=== PATIENT | female | born 1955 | race Caucasian/White ===

== ENCOUNTER 2020-08-08 16:15 | Inpatient (IN) | payer MEDICAID, SELFPAY ==
--- NOTE | ~2020-08-08 | CT_ITS ---
EXAMINATION: CT CHEST WITHOUT CONTRAST CLINICAL INFORMATION: Acute shortness of breath . COMPARISON: Chest x-ray from this evening, visualized lung bases on the 09/11/2016 CT scan the abdomen and visualized basilar chest on the oldest available 01/04/2012 CT scan. TECHNIQUE: Multidetector volumetric imaging was performed from the thoracic inlet through the lung bases without contrast. Sagittal and coronal reformatted images were obtained on the technologist workstation. Soft tissue and lung algorithms evaluated. Thick slab MIP images were performed to increase nodule conspicuity. This CT examination was performed using dose optimization techniques as appropriate, variously including the following: *Automated exposure control *Adjustment of mA and/or kV according to patient size (this includes techniques or standardized protocols for targeted exams where dose is matched to indication/reason for exam; i.e. extremities or head) *Use of iterative reconstruction technique DLP: 307 mGy-cm. FINDINGS: LUNG: Although there are chronic appearing reticular markings seen, these appear to have progressed from the prior studies. Acute infectious etiology superimposed on chronic reticular markings and areas of scarring would be favored with this distribution. Clinical correlation would be recommended. I do not appreciate any significant nodularity or discrete mass lesion. Central airways are unremarkable. MEDIASTINUM: Vascular calcification within the aorta and coronary vessels. Heart is enlarged but difficult to define further on this noncontrast study. PERICARDIUM/PLEURA: No significant effusion. No pleural mass or thickening. THYROID/VISUALIZED LOWER NECK: Low-attenuation nodularity seen bilaterally measuring up to 2.5 cm on the right and 1.3 cm on the left. CHEST WALL/AXILLA: Unremarkable. VISUALIZED UPPER ABDOMEN: Partially visualized left renal cyst. Nonobstructed right renal calculi. CT/CT chest wo con IMPRESSION: Although there are extensive chronic appearing changes in the lung parenchyma, this has worsened in the interval from the prior studies. Acute on chronic changes are present. Acute infectious etiology superimposed on chronic regions of bilateral scarring would be suspected. This is not the typical pattern for acute edema on chronic changes. Clinical correlation will be needed.
--- NOTE | ~2020-08-08 | XR_ITS ---
EXAMINATION: XR CHEST CLINICAL INFORMATION: Fever. COMPARISON: Chest x-ray 08/08/[address] chest 08/08/2020 TECHNIQUE: Frontal view of the chest was obtained. FINDINGS: The lungs are hypoexpanded with prominent chronic reticular interstitial changes similar to last study 08/08/2020. There is a dense patchy opacities in the right middle lobe, right lower lobe and left lower lobe likely superimposed infiltrates. The heart size and pulmonary vascularity is normal. No gross bony abnormality seen. XR/XR chest 1V IMPRESSION: Hypoexpanded lungs with chronic interstitial lung changes with likely superimposed infiltrates as described above. The findings are unchanged to chest x-ray and CT chest 08/08/2020
--- NOTE | ~2020-08-08 | XR_ITS ---
EXAMINATION: PORTABLE CHEST 1 VIEW CLINICAL INFORMATION: sob . COMPARISON: 10/06/2019. TECHNIQUE: Portable frontal view of the chest was obtained. FINDINGS: Lungs are hypoexpanded with chronic appearing coarsened reticular markings again identified. These are chronic in nature and have actually shown some slight improvement from the prior study. There is chronic blunting of the left costophrenic angle and a tiny layering left effusion cannot be excluded. No overt edema or pneumothorax. Cardiac silhouette within normal limits for size. Chronic deformity to the left shoulder again noted. XR/XR chest 1V IMPRESSION: Hypoexpanded with extensive chronic patchy bilateral airspace disease again noted. This is slightly improved from the 10/06/2019 study
[2020-08-08 16:29] VITALS: BP 123/68; PULSE 84; RESP 18; TEMP 36.6; O2SAT 98; BMI 18.3
--- NOTE | 2020-08-08 16:33 | ED.SOB ---
HPI - SOB/Dyspnea General Chief Complaint: Dyspnea Stated Complaint: INCREASED RESP RATE Time Seen by Provider: 08/08/20 16:32 Source: patient and EMS Mode of arrival: EMS Limitations: no limitations History of Present Illness HPI Narrative: Patient from [facility] longterm with multiple problems including left quin plegia chronic renal disease hypertension peripheral vascular disease antiphospholipid syndrome with history of COVID last year was sent from longterm for sudden onset of shortness of breath saturating 70% at room air improved to 94% on 4 L oxygen with heart rate of 113 respiratory rate of 22 questionable patient was having chest pain when EMS arrived patient vitals were stable.in the ER patient is saturating 98% on 2 L without any significant distress no chest pain Related Data Allergies Allergy/AdvReac Type Severity Reaction Status Date / Time acetaminophen [Vicodin] Allergy Unknown vomiting Verified 04/14/19 00:00 hydrocodone [Vicodin] Allergy Unknown vomiting Verified 04/14/19 00:00 lactose [LACTOSE] Allergy Unknown UNKNOWN Unverified 02/18/20 17:50 lamotrigine [From LAMICTAL] Allergy Unknown UNKNOWN Unverified 02/18/20 17:50 NSAIDS (Non-Steroidal AdvReac Mild KIDNEY Unverified 02/18/20 17:50 Anti-Inflamma DISEASE= [NSAIDS (NON-STEROIDAL ANTI-INFLAMMA] dairy products Allergy Unknown diarrhea Uncoded 04/14/19 00:00 From VICODIN Allergy Unknown UNKNOWN Uncoded 02/18/20 17:50 hydrocodone-acetaminophen Allergy Unknown Uncoded 04/14/19 00:00 comp Review of Systems Review of Systems: Constitutional : No Weight loss, No Fever, No Chills ENT/Mouth : No sore throat, No Rhinorrhea Eyes: No Eye Pain, No Swelling Cardiovascular : ++ Chest Pain, no palpitations Respiratory : No Cough, No Sputum, + shortness of breath Gastrointestinal : no Nausea, No Vomiting, No Diarrhea, No abdominal Pain, no black stools Genitourinary : No Dysuria, No Urinary Frequency Musculoskeletal : No joint pain, No Myalgias, No Joint Swelling Skin : No Skin Lesions, No rash Neuro : ++ Weakness, No Numbness, No Dizziness, No Headache Psych : No Anxiety/Panic, No Depression Heme/Lymph: No Bruising, No Lymphadenopathy Endocrine : No Polyuria, No Polydipsia All other systems reviewed and are negative [facility] Past Medical History Medical History (Updated 08/08/20 @ 22:51 by Marty Zavala MD) Anticoagulated on Coumadin Antiphospholipid syndrome Cerebrovascular accident (CVA) with left hemiparesis Chronic anemia Depression DVT (deep venous thrombosis) Glaucoma Hypertension Obsessive compulsive disorder Peripheral vascular disease Respiratory failure Thrombocytopenia Social History Social History Advance Directives: No Advance Directives Information Provided: No Physical Exam Vital Signs: Vital Signs: Last Vital Signs Temp 97.8 F 08/08/20 16:29 Pulse 96 08/08/20 21:34 Resp 16 08/08/20 21:34 BP 136/69 08/08/20 21:34 Pulse Ox 95 08/08/20 21:34 Body Mass Index 18.3 Const: General: no acute distress, ill appearing, lethargic and tired appearing Nutritional Appearance: thin Orientation/consciousness: oriented to person, oriented to place and lethargic HENMT: Head: Yes normocephalic and Yes atraumatic Ears: hearing grossly normal bilaterally General nose exam: Normal external nose present Eyes: General: appearance normal, both eyes and all related structures Neck: Neck: Yes normal visual inspection, Yes full ROM and Yes no lymphadenopathy Chest: Chest palpation & inspection: normal inspection of the chest and normal palpation of entire chest wall Resp: Effort & Inspection: normal respiratory effort and able to speak in complete sentences Auscultation: clear to auscultation bilaterally, no crackles, no rales and no rhonchi Cardio: Jugular venous distension: no JVD Palpation: normal PMI Rate: regular rate Rhythm: regular rhythm Heart sounds: S1 normal heart sound present and S2 normal heart sound present GI: Inspection: Yes normal to inspection Palpation (GI): Soft to palpation and nontender Auscultation: normal bowel sounds : General: Yes no CVA tenderness Back/Spine/Pelvis: Back: no CVA tenderness Thoracic/Lumbar Spine: thoracic and lumbar spine normal to inspection Skin: General skin exam: no rashes or lesions noted Neuro: Other: Residual left-sided hemiparesis and increased weakness in both lower extremities General: oriented to person and oriented to place Extrem: Other: Left hemiparesis with limited movements of lower extremities General: Yes no pedal edema Course Course Course Narrative: 1725:Patient with acute shortness of breath etoiology not clear in ER patient dropped her oxygen to 85% on room air will put her back on 2 L oxygen MDM - SOB/Dyspnea MDM Narrative Medical decision making narrative: Patient's acute hypoxia CT scan showed bilateral infiltrate superimposed on chronic lung disease likely the cause of hypoxia will give her antibiotics Kuldeepn plan to admit has normal lactic acid level elevated troponin but does no change in delta troponin EKG has old left bundle branch block Differential Diagnosis Differential diagnosis: Likely congestive heart failure and pneumonia Medical Records Attestation: I reviewed the patient's medical records. Lab Data Attestation: I reviewed the patient's lab results. Result diagrams: 08/08/20 17:47 08/08/20 17:47 Labs: Lab Results 08/08/20 08/08/20 08/08/20 Range/Units 17:47 17:47 17:47 WBC 10.3 (4.8-10.8) X10*3/uL RBC 3.85 L (4.20-5.50) X10*6/uL Hgb 11.5 L (12.0-16.0) g/dl Hct 35.9 L (37-47) % MCV 93.2 (80-98) fL MCH 29.9 (27.0-33.0) pg MCHC 32.0 (31.0-35.0) g/dl RDW 12.9 (11.0-16.0) % Plt Count 125 L (160-400) X10*3/uL MPV 10.0 (9.4-12.3) fL Immature Gran % (Auto) 0.4 (0.0-0.4) % Neut % (Auto) 84.9 H (45-73) % Lymph % (Auto) 7.6 L (20-40) % [place] % (Auto) 6.7 (2-11) % Eos % (Auto) 0.0 (0-4) % Baso % (Auto) 0.4 (0-2) % Lymph # (Auto) 0.8 L (1.2-4.9) X10*3/uL [place] # (Auto) 0.7 (0.1-1.2) X10*3/uL Eos # (Auto) 0.0 (0.0-0.4) X10*3/uL Baso # (Auto) 0.0 (0.0-0.2) X10*3/uL Abs Immat Gran (auto) 0.04 H (0.00-0.03) X10*3/uL Absolute Neuts (auto) 8.8 H (2.0-8.3) X10*3/uL Absolute Nucleated RBC 0.000 (0.0-0.012) X10*3/uL Nucleated RBC % (auto) 0.0 (0.0-0.2) /100WBC PT 72.3 H (10.8-13.0) SEC INR 6.0 H* (0.9-1.1) Sodium 138 (135-145) mmol/L Potassium 4.7 (3.3-5.1) mmol/L Chloride 100 (96-108) mmol/L Carbon Dioxide 28 (22-29) mmol/L Anion Gap 15 (12-20) BUN 27 H (9-16) mg/dL Creatinine 1.15 (0.5-1.4) mg/dL Estim Creat Clear Calc 38.3 Estimated GFR 48 Random Glucose 161 H (60-115) mg/dL Lactic Acid (0.5-2.0) mmol/L Calcium 8.8 (8.4-10.2) mg/dL Total Bilirubin 0.4 (0.0-1.0) mg/dL Direct Bilirubin 0.2 (0.0-0.5) mg/dL AST 32 H (5-31) U/L ALT 22 (0-31) U/L Alkaline Phosphatase 138 H (39-117) U/L Troponin I High Sens (<3.5-17.0) ng/L B-Natriuretic Peptide (<100) pg/mL Total Protein 7.8 (6.5-8.0) g/dL Albumin 3.3 L (3.5-5.0) g/dL COVID-19 (FREDDY) (Negative) COVID-19 Clin Com 08/08/20 08/08/20 08/08/20 Range/Units 17:47 17:47 20:44 WBC (4.8-10.8) X10*3/uL RBC (4.20-5.50) X10*6/uL Hgb (12.0-16.0) g/dl Hct (37-47) % MCV (80-98) fL MCH (27.0-33.0) pg MCHC (31.0-35.0) g/dl RDW (11.0-16.0) % Plt Count (160-400) X10*3/uL MPV (9.4-12.3) fL Immature Gran % (Auto) (0.0-0.4) % Neut % (Auto) (45-73) % Lymph % (Auto) (20-40) % [place] % (Auto) (2-11) % Eos % (Auto) (0-4) % Baso % (Auto) (0-2) % Lymph # (Auto) (1.2-4.9) X10*3/uL [place] # (Auto) (0.1-1.2) X10*3/uL Eos # (Auto) (0.0-0.4) X10*3/uL Baso # (Auto) (0.0-0.2) X10*3/uL Abs Immat Gran (auto) (0.00-0.03) X10*3/uL Absolute Neuts (auto) (2.0-8.3) X10*3/uL Absolute Nucleated RBC (0.0-0.012) X10*3/uL Nucleated RBC % (auto) (0.0-0.2) /100WBC PT (10.8-13.0) SEC INR (0.9-1.1) Sodium (135-145) mmol/L Potassium (3.3-5.1) mmol/L Chloride (96-108) mmol/L Carbon Dioxide (22-29) mmol/L Anion Gap (12-20) BUN (9-16) mg/dL Creatinine (0.5-1.4) mg/dL Estim Creat Clear Calc Estimated GFR Random Glucose (60-115) mg/dL Lactic Acid 0.9 (0.5-2.0) mmol/L Calcium (8.4-10.2) mg/dL Total Bilirubin (0.0-1.0) mg/dL Direct Bilirubin (0.0-0.5) mg/dL AST (5-31) U/L ALT (0-31) U/L Alkaline Phosphatase (39-117) U/L Troponin I High Sens 68.3 H (<3.5-17.0) ng/L B-Natriuretic Peptide 362 H (<100) pg/mL Total Protein (6.5-8.0) g/dL Albumin (3.5-5.0) g/dL COVID-19 (FREDDY) Negative (Negative) COVID-19 Clin Com See Note 08/08/20 Range/Units 23:33 WBC (4.8-10.8) X10*3/uL RBC (4.20-5.50) X10*6/uL Hgb (12.0-16.0) g/dl Hct (37-47) % MCV (80-98) fL MCH (27.0-33.0) pg MCHC (31.0-35.0) g/dl RDW (11.0-16.0) % Plt Count (160-400) X10*3/uL MPV (9.4-12.3) fL Immature Gran % (Auto) (0.0-0.4) % Neut % (Auto) (45-73) % Lymph % (Auto) (20-40) % [place] % (Auto) (2-11) % Eos % (Auto) (0-4) % Baso % (Auto) (0-2) % Lymph # (Auto) (1.2-4.9) X10*3/uL [place] # (Auto) (0.1-1.2) X10*3/uL Eos # (Auto) (0.0-0.4) X10*3/uL Baso # (Auto) (0.0-0.2) X10*3/uL Abs Immat Gran (auto) (0.00-0.03) X10*3/uL Absolute Neuts (auto) (2.0-8.3) X10*3/uL Absolute Nucleated RBC (0.0-0.012) X10*3/uL Nucleated RBC % (auto) (0.0-0.2) /100WBC PT (10.8-13.0) SEC INR (0.9-1.1) Sodium (135-145) mmol/L Potassium (3.3-5.1) mmol/L Chloride (96-108) mmol/L Carbon Dioxide (22-29) mmol/L Anion Gap (12-20) BUN (9-16) mg/dL Creatinine (0.5-1.4) mg/dL Estim Creat Clear Calc Estimated GFR Random Glucose (60-115) mg/dL Lactic Acid (0.5-2.0) mmol/L Calcium (8.4-10.2) mg/dL Total Bilirubin (0.0-1.0) mg/dL Direct Bilirubin (0.0-0.5) mg/dL AST (5-31) U/L ALT (0-31) U/L Alkaline Phosphatase (39-117) U/L Troponin I High Sens 70.7 H (<3.5-17.0) ng/L B-Natriuretic Peptide (<100) pg/mL Total Protein (6.5-8.0) g/dL Albumin (3.5-5.0) g/dL COVID-19 (FREDDY) (Negative) COVID-19 Clin Com ECG Data Attestation: I personally reviewed and interpreted this ECG as follows: Interpretation: Sinus tachycardia heart rate 110 beats per minute left axis deviation left bundle-branch block no acute ST T wave changes no acute ischemia
--- NOTE | 2020-08-08 16:54 | ECG_ITS ---
Test Reason : CHEST PAIN Blood Pressure : / mmHG Vent. Rate : 096 BPM Atrial Rate : 096 BPM P-R Int : 166 ms QRS Dur : 130 ms QT Int : 378 ms P-R-T Axes : 073 -55 090 degrees QTc Int : 477 ms Normal sinus rhythm Possible Left atrial enlargement Left axis deviation Left bundle branch block Abnormal ECG When compared with ECG of 30-SEP-2019 01:26, Premature ventricular complexes are no longer Present Left bundle branch block is now Present Referred By: Marty Zavala Electronically Signed By:Karri Mendoza
[2020-08-08 17:28] VITALS: O2SAT 85
[2020-08-08 17:54] LABS: MANUAL DIFF FLAG NO
[2020-08-08 17:55] LABS: Basophils Percent Auto 0.4 % (0-2); Hematocrit 35.9 % (37-47); Hemoglobin 11.5 g/dl (12.0-16.0); Imm Gran Abs Auto 0.04 X10*3/uL (0.00-0.03); Imm Gran Pct Auto 0.4 % (0.0-0.4); Lymphocytes Absolute Auto 0.8 X10*3/uL (1.2-4.9); Lymphocytes Percent Auto 7.6 % (20-40); Mean Corpuscular Hemoglobin 29.9 pg (27.0-33.0); Mean Corpuscular Volume 93.2 fL (80-98); Monocytes Absolute Auto 0.7 X10*3/uL (0.1-1.2); Monocytes Percent Auto 6.7 % (2-11); Neutrophils Absolute Auto 8.8 X10*3/uL (2.0-8.3); Neutrophils Percent Auto 84.9 % (45-73); Platelet Count 125 X10*3/uL (160-400); Red Blood Count 3.85 X10*6/uL (4.20-5.50); Red Cell Distribution Width 12.9 % (11.0-16.0); White Blood Count 10.3 X10*3/uL (4.8-10.8)
[2020-08-08 18:07] LABS: Prothrombin Time 72.3 SEC (10.8-13.0)
[2020-08-08 18:16] LABS: Alanine Aminotransferase 22 U/L (0-31); Albumin Level 3.3 g/dL (3.5-5.0); Alkaline Phosphatase 138 U/L (39-117); Anion Gap 15 (12-20); Aspartate Amino Transferase 32 U/L (5-31); Bilirubin Direct 0.2 mg/dL (0.0-0.5); Bilirubin Total 0.4 mg/dL (0.0-1.0); Blood Urea Nitrogen 27 mg/dL (9-16); COVID-19 Test Negative (Negative); Calcium 8.8 mg/dL (8.4-10.2); Carbon Dioxide 28 mmol/L (22-29); Chloride 100 mmol/L (96-108); Creatinine Clr Calc Pharmacy 38.3; Estimated Glomerular Filt Rate 48; Glucose Random 161 mg/dL (60-115); Potassium 4.7 mmol/L (3.3-5.1); Sodium 138 mmol/L (135-145); Total Protein 7.8 g/dL (6.5-8.0)
[2020-08-08 18:28] LABS: B Type Natriuretic Peptide 362 pg/mL (<100); Troponin-I High Sensitivity 68.3 ng/L (<3.5-17.0)
--- NOTE | 2020-08-08 19:06 | PC.NURSE ---
PT TO CT IN STRETCHER. PT DENIES ANY COMPLAINTS.
[2020-08-08 21:08] LABS: Lactic Acid 0.9 mmol/L (0.5-2.0)
[2020-08-08] MEDS: Piperacillin Sodium/Tazobactam 3.375 GM in 0.9 % Sodium Chloride 50 ML IV (21:30)
[2020-08-08 21:34] VITALS: BP 136/69; PULSE 96; RESP 16; O2SAT 95
--- NOTE | 2020-08-08 21:34 | PC.NURSE ---
PT C/O IM STARVING . PT EATING SANDWICH OK'D BY DR. BADILLO. VS OBTAINED. PT MEDICATED PER EMAR. WILL CONTINUE TO MONITOR PT.
--- NOTE | 2020-08-08 23:05 | ECG_ITS ---
Test Reason : REPEAT Blood Pressure : / mmHG Vent. Rate : 110 BPM Atrial Rate : 110 BPM P-R Int : 164 ms QRS Dur : 132 ms QT Int : 366 ms P-R-T Axes : 083 -57 095 degrees QTc Int : 495 ms Sinus tachycardia Left axis deviation Left bundle branch block Abnormal ECG When compared with ECG of 08-AUG-2020 22:42, No significant changes seen Referred By: Marty Zavala Electronically Signed By:Karri Mendoza
[2020-08-08] MEDS: ondansetron HCL 4 MG/2 ML VIAL IVPUSH (23:18)
[2020-08-08] MEDS: Morphine Sulfate 2 MG/ML CARTRIDGE IVPUSH (23:18)
[2020-08-09] VITALS (12 sets, daily range): BP systolic 119–154; BP diastolic 68–78; PULSE 92–128; RESP 16–19; TEMP 36.4–36.9; O2SAT 4–99; BMI 18.3
[2020-08-09 00:11] LABS: Troponin-I High Sensitivity 70.7 ng/L (<3.5-17.0)
--- NOTE | 2020-08-09 06:06 | PM.IMHP ---
History of Present Illness Date of Service: 08/08/20 Chief Complaint: Hypoxia This is a 65-year-old female with past medical history of hemiplegia, CKD, HTN, PVD, antiphospholipid syndrome, history of DVT on anticoagulation, history of COVID last year who was sent from [facility] for sudden onset of shortness of breath. Patient of this times very anxious, refusing to give me much history except his focused on feeling short of breath, stating that she is having left-sided chest pain although refusing to give me more history about what the chest pain is about or characteristics of the chest pain, she is anxious, she is scared, and not really focus in on the exam. It appears that EMS was called due to shortness of breath. On arrival of EMS patient was found to be satting in the 70s. Patient was placed on oxygen and brought into the hospital. On arrival to the ED patient had vitals of a temp of 98.4?, heart rate of 84, respiratory rate of 18, blood pressure 123/68, satting 98% on 2 L of oxygen. She with desatted to the 80s on room air. On arrival are significant for WBC count of 10.3, PT of 72, INR of 6.0, AST of 32, alk-phos of 138, troponins [place] of 68 increased to 70 on repeat, BNP of 362, COVID-19 negative, chest CT showed extensive chronic appearing changes with acute on chronic changes when compared to prior study. Acute infectious etiologies superimposed on chronic regions of bilateral scarring would be suspected. Of note patient was COVID positive in May. A clear past medical history from patient and therefore it past medical history is obtained from EMR as below Review of Systems Review of Systems: Yes all other systems are reviewed and are negative FORMERLY [facility], [facility]1983 Medical History Anticoagulated on Coumadin Antiphospholipid syndrome Cerebrovascular accident (CVA) with left hemiparesis Chronic anemia Depression DVT (deep venous thrombosis) Glaucoma Hypertension Obsessive compulsive disorder Peripheral vascular disease Respiratory failure Thrombocytopenia Social History Advance Directives: No Advance Directives Information Provided: No Meds Allergies Allergy/AdvReac Type Severity Reaction Status Date / Time acetaminophen [Vicodin] Allergy Unknown vomiting Verified 04/14/19 00:00 hydrocodone [Vicodin] Allergy Unknown vomiting Verified 04/14/19 00:00 lactose [LACTOSE] Allergy Unknown UNKNOWN Unverified 02/18/20 17:50 lamotrigine [From LAMICTAL] Allergy Unknown UNKNOWN Unverified 02/18/20 17:50 NSAIDS (Non-Steroidal AdvReac Mild KIDNEY Unverified 02/18/20 17:50 Anti-Inflamma DISEASE= [NSAIDS (NON-STEROIDAL ANTI-INFLAMMA] dairy products Allergy Unknown diarrhea Uncoded 04/14/19 00:00 From VICODIN Allergy Unknown UNKNOWN Uncoded 02/18/20 17:50 hydrocodone-acetaminophen Allergy Unknown Uncoded 04/14/19 00:00 comp Physical Exam Vital Signs and Narrative: Vital Signs: Last Vital Signs Temp 98.4 F 08/09/20 04:00 Pulse 109 H 08/09/20 04:00 Resp 16 08/09/20 04:00 BP 142/78 H 08/09/20 04:00 Pulse Ox 4 L 08/09/20 04:00 Body Mass Index 18.3 Const: Other: Patient very anxious, unable to focus on my questions General: in distress Eyes: General: appearance normal, both eyes and all related structures Resp: Effort & Inspection: normal respiratory effort and able to speak in complete sentences Cardio: Rate: regular rate Rhythm: regular rhythm GI: Palpation (GI): Soft to palpation Auscultation: normal bowel sounds Skin: General skin exam: no rashes or lesions noted Neuro: Cognition (Neuro): normal cognition Extrem: General: Yes normal to inspection and Yes no pedal edema Results Labs CBC and Chem 7: 08/08/20 17:47 08/08/20 17:47 Labs: Laboratory Results - last 24 hr 08/08/20 08/08/20 08/08/20 17:47 17:47 17:47 MCV 93.2 MCH 29.9 MCHC 32.0 RDW 12.9 Plt Count 125 L MPV 10.0 Immature Gran % (Auto) 0.4 Neut % (Auto) 84.9 H Lymph % (Auto) 7.6 L [place] % (Auto) 6.7 Eos % (Auto) 0.0 Baso % (Auto) 0.4 Lymph # (Auto) 0.8 L [place] # (Auto) 0.7 Eos # (Auto) 0.0 Baso # (Auto) 0.0 Abs Immat Gran (auto) 0.04 H Absolute Neuts (auto) 8.8 H Absolute Nucleated RBC 0.000 Nucleated RBC % (auto) 0.0 PT 72.3 H INR 6.0 H* Anion Gap 15 Estim Creat Clear Calc 38.3 Estimated GFR 48 Random Glucose 161 H Lactic Acid Calcium 8.8 Total Bilirubin 0.4 Direct Bilirubin 0.2 AST 32 H ALT 22 Alkaline Phosphatase 138 H Troponin I High Sens B-Natriuretic Peptide Total Protein 7.8 Albumin 3.3 L COVID-19 (FREDDY) COVID-19 Clin Com 08/08/20 08/08/20 08/08/20 17:47 17:47 20:44 MCV MCH MCHC RDW Plt Count MPV Immature Gran % (Auto) Neut % (Auto) Lymph % (Auto) [place] % (Auto) Eos % (Auto) Baso % (Auto) Lymph # (Auto) [place] # (Auto) Eos # (Auto) Baso # (Auto) Abs Immat Gran (auto) Absolute Neuts (auto) Absolute Nucleated RBC Nucleated RBC % (auto) PT INR Anion Gap Estim Creat Clear Calc Estimated GFR Random Glucose Lactic Acid 0.9 Calcium Total Bilirubin Direct Bilirubin AST ALT Alkaline Phosphatase Troponin I High Sens 68.3 H B-Natriuretic Peptide 362 H Total Protein Albumin COVID-19 (FREDDY) Negative COVID-19 [facility] Com See Note 08/08/20 23:33 MCV MCH MCHC RDW Plt Count MPV Immature Gran % (Auto) Neut % (Auto) Lymph % (Auto) [place] % (Auto) Eos % (Auto) Baso % (Auto) Lymph # (Auto) [place] # (Auto) Eos # (Auto) Baso # (Auto) Abs Immat Gran (auto) Absolute Neuts (auto) Absolute Nucleated RBC Nucleated RBC % (auto) PT INR Anion Gap Estim Creat Clear Calc Estimated GFR Random Glucose Lactic Acid Calcium Total Bilirubin Direct Bilirubin AST ALT Alkaline Phosphatase Troponin I High Sens 70.7 H B-Natriuretic Peptide Total Protein Albumin COVID-19 (FREDDY) COVID-19 Clin Com Imaging Radiologist's Impressions: Impressions Chest X-Ray 08/08/20 16:54 IMPRESSION: Hypoexpanded with extensive chronic patchy bilateral airspace disease again noted. This is slightly improved from the 10/06/[address] 03/08/21 18:42 IMPRESSION: Although there are extensive chronic appearing changes in the lung parenchyma, this has worsened in the interval from the prior studies. Acute on chronic changes are present. Acute infectious etiology superimposed on chronic regions of bilateral scarring would be suspected. This is not the typical pattern for acute edema on chronic changes. Clinical correlation will be needed. Assessment and Plan (1) Acute respiratory failure with hypoxia: Status: Acute (2) Supratherapeutic INR: Status: Acute (3) Pneumonia: Qualifiers: Laterality: bilateral Lung location: unspecified part of lung Pneumonia type: due to unspecified organism Qualified Code(s): J18.9 - Pneumonia, unspecified organism Status: Acute This is a 65-year-old female who presents to the hospital from [facility] with hypoxia. # acute hypoxic respiratory failure - secondary to pneumonia - CT chest shows acute changes on chronic scarring - patient has no leukocytosis at this time and afebrile - will start her on IV antibiotics - O2 supplement as required - wean off oxygen as tolerated # pneumonia - CT findings as above - will start on IV antibiotics - follow cultures - strep and Legionella urine antigen sent # supratherapeutic INR - will hold warfarin - PT INR daily - resume once INR is in the therapeutic range DVT prophylaxis: Warfarin
--- NOTE | 2020-08-09 08:07 | PC.NURSE ---
floor called but report not given
[2020-08-09 09:25] LABS: MANUAL DIFF FLAG NO
[2020-08-09 09:26] LABS: Basophils Percent Auto 0.2 % (0-2); Hemoglobin 10.9 g/dl (12.0-16.0); Imm Gran Abs Auto 0.04 X10*3/uL (0.00-0.03); Imm Gran Pct Auto 0.5 % (0.0-0.4); Lymphocytes Absolute Auto 0.8 X10*3/uL (1.2-4.9); Lymphocytes Percent Auto 9.3 % (20-40); Mean Corpuscular HGB Conc 32.1 g/dl (31.0-35.0); Mean Corpuscular Hemoglobin 30.3 pg (27.0-33.0); Mean Corpuscular Volume 94.4 fL (80-98); Monocytes Absolute Auto 0.8 X10*3/uL (0.1-1.2); Neutrophils Absolute Auto 6.8 X10*3/uL (2.0-8.3); Platelet Count 109 X10*3/uL (160-400); White Blood Count 8.4 X10*3/uL (4.8-10.8)
[2020-08-09] MEDS: Lactated Ringers 1,000 ML 100 ML IVCONT ×2 (09:34→18:42)
[2020-08-09] MEDS: cefTRIAXone sodium 1 GM in 0.9 % Sodium Chloride 50 ML IV (09:43)
[2020-08-09] MEDS: Azithromycin 500 MG TABLET PO (09:44)
[2020-08-09 09:59] LABS: Anion Gap 14 (12-20); Blood Urea Nitrogen 27 mg/dL (9-16); Calcium 8.8 mg/dL (8.4-10.2); Carbon Dioxide 27 mmol/L (22-29); Chloride 103 mmol/L (96-108); Creatinine Clr Calc Pharmacy 40.9; Estimated Glomerular Filt Rate 51; Glucose Random 116 mg/dL (60-115); Potassium 4.8 mmol/L (3.3-5.1); Sodium 139 mmol/L (135-145)
--- NOTE | 2020-08-09 11:47 | MHC.CLN ---
PT IS MALNOURISHED RECOMMEND ADDING ENSURE BID TO INCREASE KCALS SEE ALSO CLINICAL NUTRITION ASSESSMENT
--- NOTE | 2020-08-09 13:42 | P.PNIM_ITS ---
Subjective Subjective Date of Service: 08/09/20 Interval History: seen and examined this afternoon no medical complaints at this time Physical Exam Vital Signs: Vital Signs: Last Vital Signs Temp 97.9 F 08/09/20 09:23 Pulse 100 08/09/20 09:23 Resp 17 08/09/20 09:23 BP 127/74 08/09/20 09:23 Pulse Ox 98 08/09/20 09:23 Body Mass Index 18.3 Const: General: in distress Eyes: General: appearance normal, both eyes and all related structures Resp: Effort & Inspection: normal respiratory effort and able to speak in complete sentences Cardio: Rate: regular rate Rhythm: regular rhythm GI: Palpation (GI): Soft to palpation Auscultation: normal bowel sounds Skin: General skin exam: no rashes or lesions noted Neuro: Cognition (Neuro): normal cognition Extrem: General: Yes normal to inspection and Yes no pedal edema Objective Data Current Medications Generic Name Dose Route Start Last Admin Trade Name Freq PRN Reason Stop Dose Admin Aspirin 81 mg 08/10/20 09:00 Aspirin Enteric Coated 81 Mg Tablet.Dr PO DAILY LEO Azithromycin 500 mg 08/09/20 09:00 08/09/20 09:44 Azithromycin 500 Mg Tablet PO 500 mg Q24H LEO Administration Chlordiazepoxide HCl 5 mg 08/09/20 21:00 Chlordiazepoxide Hcl 5 Mg Capsule PO BID LEO Docusate Sodium 100 mg 08/09/20 08:16 Docusate Sodium 100 Mg Capsule PO DAILY PRN Constipation Gabapentin 200 mg 08/09/20 21:00 Gabapentin 100 Mg Capsule PO BID [facility] Ceftriaxone Sodium 1 gm/ 50 mls @ 100 mls/hr 08/09/20 09:00 08/09/20 10:28 Sodium Chloride IV Infused Q24H LEO Infusion Lactated Ringer's 1,000 mls @ 100 mls/hr 08/09/20 08:16 08/09/20 09:34 Lr IVCONT 100 mls/hr .Q10H LEO Administration Loratadine 10 mg 08/10/20 09:00 Loratadine 10 Mg Tablet PO DAILY LEO Metoprolol Tartrate 25 mg 08/09/20 15:00 Metoprolol Tartrate 25 Mg Tablet PO TID LEO Protocol Non-Formulary Medication 6 mg 08/09/20 13:36 Melatonin PO BEDTIME PRN Insomnia Non-Formulary Medication 10 mg 08/10/20 09:00 Oxybutynin Chloride PO DAILY LEO Non-Formulary Medication 0.5 tab 08/09/20 13:36 Oxycodone-Acetaminophen PO TID PRN Moderate Pain (Scale Score 5-6) Non-Formulary Medication 1 tab 08/10/20 09:00 Vitamin B Complex PO DAILY LEO Ondansetron HCl 4 mg 08/09/20 08:16 Ondansetron Hcl 4 Mg/2 Ml Vial IVPUSH Q8H PRN Nausea and Vomiting Pharmacy Consult 1 each 08/09/20 08:20 Consult Rx Perform Med Rec MISCELLANE ONCE PRN Consult order Sodium Chloride 3 ml 08/09/20 08:16 08/09/20 09:33 0.9 % Sodium Chloride Flush 3 Ml Syringe IVFLUSH Not Given QSHIFT [facility] Labs CBC & Chem 7: 08/09/20 09:20 08/09/20 09:20 Assessment and Plan (1) Acute respiratory failure with hypoxia: Status: Acute (2) Supratherapeutic INR: Status: Acute (3) Pneumonia: Status: Acute Assessment and Plan: This is a 65-year-old female who presents to the hospital from [facility] with hypoxia. 1. Acute resp. failure with hypoxia continue oxygen, titrated as possible due to chronic lung issues + possibly super-imposed pneumonia 2. Pneumonia rocpehin, change to doxy (QT on the longer side) f/u cultures 3. Antiphospholipid syndrome, history of DVT on coumadin, INR supratherapeurtic yesterday check INR now, resume coumadin 4. History of CVA, hemiplegia continue baseline meds continue baseline meds Full Code DVT pptx Coumadin
[2020-08-09 14:52] LABS: Prothrombin Time 71.1 SEC (10.8-13.0)
[2020-08-09 15:01] LABS: INTERNATIONAL NORM RATIO 5.9 (0.9-1.1)
[2020-08-09] MEDS: oxyCODONE HCl Immed Release 5 MG TABLET 2.5 MG PO ×2 (16:09→20:25)
[2020-08-09] MEDS: Metoprolol Tartrate 25 MG TABLET PO ×2 (16:14→20:22)
[2020-08-09] MEDS: 0.9 % Sodium Chloride Flush 3 ML SYRINGE IVFLUSH (16:17)
--- NOTE | 2020-08-09 16:21 | MHC.CM.PN ---
Female 65 DX Encephalopathy and hypoxia. She lives @ [facility]. Her dtr Sofía is her HCP. Sofía requested to speak with MD. Contact info provided via [employer] texted to MD. DP return to [facility] via BLS.CM will follow.
[2020-08-09 20:09] LABS: Glucose, Whole Blood 150 mg/dL (60-115)
[2020-08-09] MEDS: Magnesium Hydrox/Alum Hydrox 30 ML ORAL.SUSP 15 ML PO (20:21)
[2020-08-09] MEDS: Gabapentin 100 MG CAPSULE 200 MG PO (20:22)
[2020-08-09] MEDS: Melatonin 3 MG TABLET 6 MG PO (20:22)
[2020-08-09] MEDS: chlordiazePOXIDE HCl 5 MG CAPSULE PO (20:25)
[2020-08-09] MEDS: Doxycycline Hyclate 100 MG in 0.9 % Sodium Chloride 250 ML 166.67 MG IV (20:25)
[2020-08-10] VITALS (8 sets, daily range): BP systolic 122–151; BP diastolic 60–91; PULSE 94–108; RESP 17–20; TEMP 36.3–37.1; O2SAT 92–98; BMI 17.9
[2020-08-10] MEDS: Lactated Ringers 1,000 ML 100 ML IVCONT ×2 (03:00→15:32)
[2020-08-10] MEDS: Loratadine 10 MG TABLET PO (08:27)
[2020-08-10] MEDS: cloBAZam 10 MG TABLET 5 MG PO (08:27)
[2020-08-10] MEDS: Gabapentin 100 MG CAPSULE 200 MG PO ×2 (08:28→20:37)
[2020-08-10] MEDS: Metoprolol Tartrate 25 MG TABLET PO ×3 (08:28→20:38)
[2020-08-10] MEDS: chlordiazePOXIDE HCl 5 MG CAPSULE PO ×2 (08:29→20:38)
[2020-08-10] MEDS: Aspirin Enteric Coated 81 MG TABLET.DR PO (08:29)
[2020-08-10 08:30] LABS: Prothrombin Time 93.1 SEC (10.8-13.0)
[2020-08-10] MEDS: cefTRIAXone sodium 1 GM in 0.9 % Sodium Chloride 50 ML IV (08:31)
[2020-08-10 08:50] LABS: INTERNATIONAL NORM RATIO 7.7 (0.9-1.1)
[2020-08-10] MEDS: Phytonadione (Vit K1) Oral 10 MG/ML AMPUL 2.5 MG PO (10:37)
--- NOTE | 2020-08-10 11:05 | MHC.CM.PN ---
PER MULTIDISCIPLINARY ROUNDS PT WILL BE INPT 1-2 MORE DAYS, DISCHARGE PLAN RETURN TO [facility], BLS TO TRANSPORT. CM TO COMPLETE RETURN TO SNF REFERRAL.
[2020-08-10] MEDS: Doxycycline Hyclate 100 MG in 0.9 % Sodium Chloride 250 ML 166.67 MG IV (11:15)
--- NOTE | 2020-08-10 11:44 | HO.PM.IMPN ---
Subjective Subjective Date of Service: 08/10/20 Interval History: f/u admission for acute respiratory failure and pneumonia no acute events overnight Physical Exam Vital Signs: Vital Signs: Last Vital Signs Temp 97.7 F 08/10/20 08:00 Pulse 108 H 08/10/20 08:28 Resp 19 08/10/20 08:00 BP 138/68 08/10/20 08:28 Pulse Ox 95 08/10/20 08:00 Body Mass Index 17.9 Const: General: no acute distress, alert and awake Nutritional Appearance: thin HENMT: Head: Yes normocephalic and Yes atraumatic Eyes: Sclerae: sclerae normal Chest: Chest palpation & inspection: normal inspection of the chest Resp: Effort & Inspection: normal respiratory effort and no respiratory distress Cardio: Rate: regular rate Rhythm: regular rhythm GI: Palpation (GI): Soft to palpation and nontender Skin: General skin exam: no rashes or lesions noted Neuro: Cranial nerves: Yes CN's II-XII intact bilaterally and Yes Bilaterally intact EOM present Extrem: General: Yes normal to inspection Objective Data Current Medications Generic Name Dose Route Start Last Admin Trade Name Freq PRN Reason Stop Dose Admin Al Hydroxide/Mg Hydroxide 15 ml 08/09/20 18:53 08/09/20 20:21 Magnesium Hydrox/Alum Hydrox 30 Ml Oral.Susp PO 15 ml Q6H PRN Administration GI UPSET Aspirin 81 mg 08/10/20 09:00 08/10/20 08:29 Aspirin Enteric Coated 81 Mg Tablet. PO 81 mg DAILY LEO Administration Chlordiazepoxide HCl 5 mg 08/09/20 21:00 08/10/20 08:29 Chlordiazepoxide Hcl 5 Mg Capsule PO 5 mg BID LEO Administration Clobazam 5 mg 08/10/20 09:00 08/10/20 08:27 Clobazam 10 Mg Tablet PO 5 mg DAILY LEO Administration Docusate Sodium 100 mg 08/09/20 08:16 Docusate Sodium 100 Mg Capsule PO DAILY PRN Constipation Gabapentin 200 mg 08/09/20 21:00 08/10/20 08:28 Gabapentin 100 Mg Capsule PO 200 mg BID LEO Administration Ceftriaxone Sodium 1 gm/ 50 mls @ 100 mls/hr 08/09/20 09:00 08/10/20 10:06 Sodium Chloride IV Infused Q24H LEO Infusion Lactated Ringer's 1,000 mls @ 100 mls/hr 08/09/20 08:16 08/10/20 03:00 Lr IVCONT 100 mls/hr .Q10H LEO Administration Doxycycline Hyclate 100 mg/ 250 mls @ 166.67 mls/hr 08/09/20 21:00 08/10/20 11:15 Sodium Chloride IV 166.67 mls/hr Q12H LEO Administration Loratadine 10 mg 08/10/20 09:00 08/10/20 08:27 Loratadine 10 Mg Tablet PO 10 mg DAILY LEO Administration Melatonin 6 mg 08/09/20 14:00 08/09/20 20:22 Melatonin 3 Mg Tablet PO 6 mg BEDTIME PRN Administration Insomnia Metoprolol Tartrate 25 mg 08/09/20 15:00 08/10/20 08:28 Metoprolol Tartrate 25 Mg Tablet PO 25 mg TID LEO Administration Protocol Multivitamins 1 tab 08/10/20 09:00 08/10/20 08:28 B-Complex With Vitamin C Tablet PO 1 tab DAILY LEO Administration Ondansetron HCl 4 mg 08/09/20 08:16 Ondansetron Hcl 4 Mg/2 Ml Vial IVPUSH Q8H PRN Nausea and Vomiting Oxybutynin Chloride 10 mg 08/10/20 09:00 08/10/20 08:27 Oxybutynin Chloride Er 5 Mg Tab.Er.24 PO 10 mg DAILY LEO Administration Oxycodone HCl 2.5 mg 08/09/20 14:02 08/09/20 20:25 Oxycodone Hcl Immed Release 5 Mg Tablet PO 2.5 mg TID PRN Administration Moderate Pain (Scale Score 5-6) Pharmacy Consult 1 each 08/09/20 08:20 Consult Rx Perform Med Rec MISCELLANE ONCE PRN Consult order Sodium Chloride 3 ml 08/09/20 08:16 08/10/20 08:27 0.9 % Sodium Chloride Flush 3 Ml Syringe IVFLUSH Not Given QSHIFT [facility] Labs CBC & Chem 7: 08/09/20 09:20 08/09/20 09:20 Microbiology Microbiology Results: Microbiology 08/08/20 20:48 Blood - Venous Blood Culture - Preliminary No growth after 24 hours. 08/08/20 20:44 Blood - Venous Blood Culture - Preliminary No growth after 24 hours. Assessment and Plan (1) Acute respiratory failure with hypoxia: Status: Acute (2) Pneumonia: Status: Acute (3) Warfarin-induced coagulopathy: Status: Acute (4) Supratherapeutic INR: Status: Acute Assessment and Plan: This is a 65-year-old female who presents to the hospital from [facility] with hypoxia. Acute resp. failure with hypoxia continue oxygen, titrated as possible due to chronic lung issues + possibly super-imposed pneumonia Pneumonia -continue ceftriaxone, doxycycline day 2 BCx negative Antiphospholipid syndrome, history of DVT on coumadin, INR supratherapeurtic INR increased to 7.7, likely r/t antibiotics. Given PO vitamin K. No evidence of active bleeding. -Follow INR, CBC -hold Coumadin History of CVA, hemiplegia continue ASA Not on statin Thrombocytopenia Chronic, at baseline -follow CBC Normocytic anemia Chronic, at baseline -follow CBC continue baseline meds Full Code DVT pptx Coumadin, INR supratherapeutic This case was discussed with Dr. Berkowitz
[2020-08-10] MEDS: Melatonin 3 MG TABLET 6 MG PO (20:37)
[2020-08-10] MEDS: oxyCODONE HCl Immed Release 5 MG TABLET 2.5 MG PO (20:38)
[2020-08-11] VITALS (15 sets, daily range): BP systolic 124–181; BP diastolic 60–94; PULSE 80–107; RESP 19–20; TEMP 36.4–38.2; O2SAT 90–99; BMI 18.8
[2020-08-11] MEDS: Doxycycline Hyclate 100 MG in 0.9 % Sodium Chloride 250 ML 166.67 MG IV ×3 (01:42→19:58)
[2020-08-11] MEDS: Lactated Ringers 1,000 ML 100 ML IVCONT (01:43)
[2020-08-11 06:49] LABS: MANUAL DIFF FLAG NO
[2020-08-11 06:56] LABS: Basophils Percent Auto 0.3 % (0-2); Hematocrit 31.6 % (37-47); Hemoglobin 10.1 g/dl (12.0-16.0); Imm Gran Abs Auto 0.03 X10*3/uL (0.00-0.03); Imm Gran Pct Auto 0.5 % (0.0-0.4); Lymphocytes Absolute Auto 1.2 X10*3/uL (1.2-4.9); Lymphocytes Percent Auto 18.2 % (20-40); Mean Corpuscular Hemoglobin 30.6 pg (27.0-33.0); Mean Corpuscular Volume 95.8 fL (80-98); Monocytes Absolute Auto 0.7 X10*3/uL (0.1-1.2); Monocytes Percent Auto 10.1 % (2-11); Neutrophils Absolute Auto 4.7 X10*3/uL (2.0-8.3); Neutrophils Percent Auto 70.9 % (45-73); White Blood Count 6.6 X10*3/uL (4.8-10.8)
[2020-08-11 07:02] LABS: INTERNATIONAL NORM RATIO 1.7 (0.9-1.1); Prothrombin Time 20.4 SEC (10.8-13.0)
[2020-08-11 07:25] LABS: Platelet Count 64 X10*3/uL (160-400)
[2020-08-11 07:26] LABS: Mean Platelet Volume 10.6 fL (9.4-12.3)
[2020-08-11 07:36] LABS: Anion Gap 12 (12-20); Blood Urea Nitrogen 22 mg/dL (9-16); Calcium 8.1 mg/dL (8.4-10.2); Carbon Dioxide 27 mmol/L (22-29); Chloride 104 mmol/L (96-108); Creatinine Clr Calc Pharmacy 54.6; Estimated Glomerular Filt Rate > 60; Glucose Random 86 mg/dL (60-115); Potassium 4.4 mmol/L (3.3-5.1); Sodium 139 mmol/L (135-145)
[2020-08-11] MEDS: Loratadine 10 MG TABLET PO (09:46)
[2020-08-11] MEDS: Aspirin Enteric Coated 81 MG TABLET.DR PO (09:46)
[2020-08-11] MEDS: Metoprolol Tartrate 25 MG TABLET PO ×2 (09:46→15:06)
[2020-08-11] MEDS: cloBAZam 10 MG TABLET 5 MG PO (09:47)
[2020-08-11] MEDS: Gabapentin 100 MG CAPSULE 200 MG PO ×2 (09:47→20:02)
[2020-08-11] MEDS: chlordiazePOXIDE HCl 5 MG CAPSULE PO ×2 (09:47→20:02)
[2020-08-11] MEDS: cefTRIAXone sodium 1 GM in 0.9 % Sodium Chloride 50 ML IV (09:59)
--- NOTE | 2020-08-11 10:13 | P.PNIM_ITS ---
Subjective Subjective Date of Service: 08/11/20 Interval History: f/u acute respiratory failure/pneumonia attempted to wean off o2, but desturated per nursing sign out difficult to obtain history/ROS, preoccupied with breakfast, but reporting SOB this am Review of Systems Review of Systems: Yes all other systems are reviewed and are negative Constitutional Constitutional: Denies chills and Denies fever(s) Cardiovascular Cardiovascular: Reports dyspnea Respiratory Respiratory: Denies cough and Reports dyspnea Gastrointestinal Gastrointestinal: Denies abdominal pain Physical Exam Vital Signs: Vital Signs: Last Vital Signs Temp 97.6 F 08/11/20 08:00 Pulse 104 H 08/11/20 08:00 Resp 20 08/11/20 08:00 BP 181/90 H 08/11/20 08:00 Pulse Ox 92 08/11/20 10:07 Body Mass Index 18.8 Const: General: no acute distress, alert and awake Nutritional Appearance: thin HENMT: Head: Yes normocephalic and Yes atraumatic Eyes: Sclerae: sclerae normal Chest: Chest palpation & inspection: normal inspection of the chest Resp: Effort & Inspection: normal respiratory effort and no respiratory distress Cardio: Rate: regular rate Rhythm: regular rhythm GI: Palpation (GI): Soft to palpation and nontender Skin: General skin exam: no rashes or lesions noted Neuro: Cranial nerves: Yes CN's II-XII intact bilaterally and Yes Bilaterally intact EOM present Extrem: Other: left hemiplegia Objective Data Current Medications Generic Name Dose Route Start Last Admin Trade Name Freq PRN Reason Stop Dose Admin Al Hydroxide/Mg Hydroxide 15 ml 08/09/20 18:53 08/09/20 20:21 Magnesium Hydrox/Alum Hydrox 30 Ml Oral.Susp PO 15 ml Q6H PRN Administration GI UPSET Aspirin 81 mg 08/10/20 09:00 08/11/20 09:46 Aspirin Enteric Coated 81 Mg Tablet.Dr PO 81 mg DAILY LEO Administration Chlordiazepoxide HCl 5 mg 08/09/20 21:00 08/11/20 09:47 Chlordiazepoxide Hcl 5 Mg Capsule PO 5 mg BID LEO Administration Clobazam 5 mg 08/10/20 09:00 08/11/20 09:47 Clobazam 10 Mg Tablet PO 5 mg DAILY LEO Administration Docusate Sodium 100 mg 08/09/20 08:16 Docusate Sodium 100 Mg Capsule PO DAILY PRN Constipation Gabapentin 200 mg 08/09/20 21:00 08/11/20 09:47 Gabapentin 100 Mg Capsule PO 200 mg BID LEO Administration Ceftriaxone Sodium 1 gm/ 50 mls @ 100 mls/hr 08/09/20 09:00 08/11/20 09:59 Sodium Chloride IV 100 mls/hr Q24H LEO Administration Lactated Ringer's 1,000 mls @ 100 mls/hr 08/09/20 08:16 08/11/20 01:43 Lr IVCONT 0 mls/hr .Q10H LEO Infusion Doxycycline Hyclate 100 mg/ 250 mls @ 166.67 mls/hr 08/09/20 21:00 08/11/20 03:21 Sodium Chloride IV Infused Q12H LEO Infusion Loratadine 10 mg 08/10/20 09:00 08/11/20 09:46 Loratadine 10 Mg Tablet PO 10 mg DAILY LEO Administration Melatonin 6 mg 08/09/20 14:00 08/10/20 20:37 Melatonin 3 Mg Tablet PO 6 mg BEDTIME PRN Administration Insomnia Metoprolol Tartrate 25 mg 08/09/20 15:00 08/11/20 09:46 Metoprolol Tartrate 25 Mg Tablet PO 25 mg TID LEO Administration Protocol Multivitamins 1 tab 08/10/20 09:00 08/11/20 09:46 B-Complex With Vitamin C Tablet PO 1 tab DAILY LEO Administration Ondansetron HCl 4 mg 08/09/20 08:16 Ondansetron Hcl 4 Mg/2 Ml Vial IVPUSH Q8H PRN Nausea and Vomiting Oxybutynin Chloride 10 mg 08/10/20 09:00 08/11/20 09:47 Oxybutynin Chloride Er 5 Mg Tab.Er.24 PO 10 mg DAILY LEO Administration Oxycodone HCl 2.5 mg 08/09/20 14:02 08/10/20 20:38 Oxycodone Hcl Immed Release 5 Mg Tablet PO 2.5 mg TID PRN Administration Moderate Pain (Scale Score 5-6) Pharmacy Consult 1 each 08/09/20 08:20 Consult Rx Perform Med Rec MISCELLANE ONCE PRN Consult order Sodium Chloride 3 ml 08/09/20 08:16 08/11/20 09:46 0.9 % Sodium Chloride Flush 3 Ml Syringe IVFLUSH Not Given QSHIFT LEO Warfarin Sodium 5 mg 08/12/20 18:00 Warfarin Sodium 5 Mg Tablet PO [email or web address] [facility] Warfarin Sodium 2.5 mg 08/11/20 18:00 Warfarin Sodium 2.5 Mg Tablet PO [email or web address] [facility] Labs CBC & Chem 7: 08/11/20 06:22 08/11/20 06:22 Microbiology Microbiology Results: Microbiology 08/08/20 20:48 Blood - Venous Blood Culture - Preliminary No growth after 48 hours. 08/08/20 20:44 Blood - Venous Blood Culture - Preliminary No growth after 48 hours. Assessment and Plan (1) Acute respiratory failure with hypoxia: Status: Acute (2) Pneumonia: Status: Acute (3) Warfarin-induced coagulopathy: Status: Acute (4) Supratherapeutic INR: Status: Acute Assessment and Plan: This is a 65-year-old female who presents to the hospital from [facility] with hypoxia. Acute resp. failure with hypoxia due to chronic lung issues + possibly super-imposed pneumonia h/o covid ? cause of chronic lung changes unable to wean off o2 yesterday, still short of breath -will consult pulmonology Pneumonia -continue ceftriaxone, doxycycline day 3 BCx negative h/o HFrEF echo from 09/21 with EF 35-40% not on diuretics at baseline -will give dose of IV lasix and monitor for response Antiphospholipid syndrome, history of DVT on coumadin, INR down to 1.7 s/p PO vit K -Resume coumadin -Follow INR, CBC History of CVA, hemiplegia continue ASA Not on statin Thrombocytopenia Chronic, drop to 64 -follow CBC Normocytic anemia Chronic, at baseline -follow CBC continue baseline meds Full Code DVT pptx Coumadin This case was discussed with Dr. Izaguirre
[2020-08-11] MEDS: Albuterol/Iprat 2.5/0.5MG 3 ML AMPUL.NEB INHALE ×3 (12:28→19:48)
[2020-08-11] MEDS: oxyCODONE HCl Immed Release 5 MG TABLET 2.5 MG PO (12:48)
[2020-08-11] MEDS: Furosemide 40 MG/4 ML VIAL IVPUSH (12:48)
--- NOTE | 2020-08-11 14:23 | MHC.CM.PN ---
EMR REVIEWED, PER MULTIDISCIPLINARY ROUNDS STILL REMAINS ON 1-2L OF O2, PT WILL NEED A HOME O2 EVAL BEFORE RETURNING TO SNF. [facility] UPDATED VIA [facility]. DISCHARGE PLAN: RETURN TO [facility] FOR BLS TRANSPORT
--- NOTE | 2020-08-11 16:07 | PM.CNPUL ---
History of Present Illness History of Present Illness Consult date: 08/11/20 Requesting physician: Michaela Tejeda Reason for consult: hypoxemia Chief complaint: ENCEPHALOPATHY, HYPOXIA Narrative: 65-year-old lady with underlying history of hemiplegia, CKD, hypertension, peripheral vascular disease, antiphospholipid syndrome, DVT on anticoagulation, combined systolic and diastolic congestive heart failure, COVID-19 infection within the last year admitted on 08/09/2020 with shortness of breath and hypoxemia. Patient has been empirically treated for community-acquired pneumonia. Her CT scan demonstrated possible underlying chronic fibrotic changes versus peribronchovascular edema. Pulmonary evaluation has been requested. Review of Systems Review of Systems: Yes Unobtainable due to mental status (Patient appears very depressed and is minimally participant in exam ) PMFSH Past Medical History Medical History Anticoagulated on Coumadin Antiphospholipid syndrome Cerebrovascular accident (CVA) with left hemiparesis Chronic anemia Depression DVT (deep venous thrombosis) Glaucoma Hypertension Obsessive compulsive disorder Peripheral vascular disease Respiratory failure Thrombocytopenia Social History Social History Household Members: None Housing: Retirement Do you presently have visiting nurse or other home services: No Smoking Status: Never smoker Second Hand Smoke Exposure: No Use of substances other than those prescribed or required for medical reasons: No Currently Displaying Signs/Symptoms of Drug Intoxication Withdrawal: No Have you been hit, kicked, punched, or otherwise hurt by someone within the past year? If so, by whom?: No Do you feel safe in your current relationship?: Yes Is there a partner from a previous relationship who is making you feel unsafe now?: No Are you made to feel afraid or neglected: No Advance Directives: No Advance Directives Information Provided: No Do you have thoughts of harming others: None Do you have a plan to hurt others: No Plan Recently lost weight without trying: Unsure service: No Current occupational status: disabled Meds Allergies Allergy/AdvReac Type Severity Reaction Status Date / Time acetaminophen [Vicodin] Allergy Unknown vomiting Verified 04/14/19 00:00 hydrocodone [Vicodin] Allergy Unknown vomiting Verified 04/14/19 00:00 lactose [LACTOSE] Allergy Unknown UNKNOWN Verified 08/09/20 15:55 lamotrigine [From LAMICTAL] Allergy Unknown UNKNOWN Verified 08/09/20 15:55 NSAIDS (Non-Steroidal AdvReac Mild KIDNEY Verified 08/09/20 15:55 Anti-Inflamma DISEASE= [NSAIDS (NON-STEROIDAL ANTI-INFLAMMA] dairy products Allergy Unknown diarrhea Uncoded 04/14/19 00:00 From VICODIN Allergy Unknown UNKNOWN Uncoded 02/18/20 17:50 hydrocodone-acetaminophen Allergy Unknown Unknown Uncoded 08/09/20 15:55 comp Active Medications: Current Medications Generic Name Dose Route Start Last Admin Trade Name Freq PRN Reason Stop Dose Admin Al Hydroxide/Mg Hydroxide 15 ml 08/09/20 18:53 08/09/20 20:21 Magnesium Hydrox/Alum Hydrox 30 Ml Oral.Susp PO 15 ml Q6H PRN Administration GI UPSET Albuterol Sulfate 2.5 mg 08/11/20 11:51 Albuterol Sulfate (0.083%) 2.5 Mg/3 Ml Vial.Neb INHALE RQ4H PRN Shortness of Breath Albuterol/Ipratropium 3 ml 08/11/20 12:00 08/11/20 15:52 Albuterol/Iprat 2.5/0.5mg 3 Ml Ampul.Neb INHALE 3 ml RQ4H WHILE AWAKE LEO Administration Aspirin 81 mg 08/10/20 09:00 08/11/20 09:46 Aspirin Enteric Coated 81 Mg Tablet.Dr PO 81 mg DAILY LEO Administration Chlordiazepoxide HCl 5 mg 08/09/20 21:00 08/11/20 09:47 Chlordiazepoxide Hcl 5 Mg Capsule PO 5 mg BID LEO Administration Clobazam 5 mg 08/10/20 09:00 08/11/20 09:47 Clobazam 10 Mg Tablet PO 5 mg DAILY LEO Administration Docusate Sodium 100 mg 08/09/20 08:16 Docusate Sodium 100 Mg Capsule PO DAILY PRN Constipation Gabapentin 200 mg 08/09/20 21:00 08/11/20 09:47 Gabapentin 100 Mg Capsule PO 200 mg BID LEO Administration Ceftriaxone Sodium 1 gm/ 50 mls @ 100 mls/hr 08/09/20 09:00 08/11/20 10:48 Sodium Chloride IV Infused Q24H [facility] Infusion Doxycycline Hyclate 100 mg/ 250 mls @ 166.67 mls/hr 08/09/20 21:00 08/11/20 12:39 Sodium Chloride IV Infused Q12H [facility] Infusion Loratadine 10 mg 08/10/20 09:00 08/11/20 09:46 Loratadine 10 Mg Tablet PO 10 mg DAILY [facility] Administration Melatonin 6 mg 08/09/20 14:00 08/10/20 20:37 Melatonin 3 Mg Tablet PO 6 mg BEDTIME PRN Administration Insomnia Metoprolol Tartrate 25 mg 08/09/20 15:00 08/11/20 15:06 Metoprolol Tartrate 25 Mg Tablet PO 25 mg TID LEO Administration Protocol Multivitamins 1 tab 08/10/20 09:00 08/11/20 09:46 B-Complex With Vitamin C Tablet PO 1 tab DAILY [facility] Administration Ondansetron HCl 4 mg 08/09/20 08:16 Ondansetron Hcl 4 Mg/2 Ml Vial IVPUSH Q8H PRN Nausea and Vomiting Oxybutynin Chloride 10 mg 08/10/20 09:00 08/11/20 09:47 Oxybutynin Chloride Er 5 Mg Tab.Er.24 PO 10 mg DAILY [facility] Administration Oxycodone HCl 2.5 mg 08/09/20 14:02 08/11/20 12:48 Oxycodone Hcl Immed Release 5 Mg Tablet PO 2.5 mg TID PRN Administration Moderate Pain (Scale Score 5-6) Pharmacy Consult 1 each 08/09/20 08:20 Consult Rx Perform Med Rec MISCELLANE ONCE PRN Consult order Sodium Chloride 3 ml 08/09/20 08:16 08/11/20 09:46 0.9 % Sodium Chloride Flush 3 Ml Syringe [facility]farin Sodium 5 mg 08/12/20 18:00 Warfarin Sodium 5 Mg Tablet PO [email or web address] [facility] Warfarin Sodium 2.5 mg 08/11/20 18:00 Warfarin Sodium 2.5 Mg Tablet PO [email or web address] [facility] Home Medications Medication Instructions Recorded Confirmed Last Taken Type alum-mag hydroxide-simeth 15 ml PO Q6H PRN 08/09/20 08/09/20 Unknown History [Feli-Lanta] ammonium lactate [Lac-Hydrin] 1 appl TOPICAL BID 08/09/20 08/09/20 Unknown History aspirin 81 mg PO DAILY 08/09/20 08/09/20 Unknown History betamethasone dipropionate 1 appl TOPICAL Q3D 08/09/20 08/09/20 Unknown History bisacodyl 10 mg [place] DAILY PRN 08/09/20 08/09/20 Unknown History cetirizine 10 mg PO DAILY 08/09/20 08/09/20 Unknown History chlordiazepoxide HCl 5 mg PO BID 08/09/20 08/09/20 Unknown History clobazam 5 mg PO DAILY 08/09/20 08/09/20 Unknown History ferrous sulfate 325 mg PO BID 08/09/20 08/09/20 Unknown History gabapentin 200 mg PO BID 08/09/20 08/09/20 Unknown History horse chestnut 300 mg PO DAILY 08/09/20 08/09/20 Unknown History lactase [Lactaid] 3,000 unit PO QID PRN 08/09/20 08/09/20 Unknown History melatonin 5 mg PO BEDTIME PRN 08/09/20 08/09/20 Unknown History methylcellulose (with sugar) 1 tbsp PO DAILY PRN 08/09/20 08/09/20 Unknown History [Citrucel (sucrose)] metoprolol tartrate 25 mg PO TID 08/09/20 08/09/20 Unknown History mometasone 1 spray INTRANASAL Q12H PRN 08/09/20 08/09/20 Unknown History multivitamin [Multivites] 1 tab PO DAILY 08/09/20 08/09/20 Unknown History oxybutynin chloride 10 mg PO DAILY 08/09/20 08/09/20 Unknown History oxycodone-acetaminophen 0.5 tab PO TID PRN 08/09/20 08/09/20 Unknown History polyvinyl alcohol [Artificial 2 drp OPHTHALMIC (EYE) QID PRN 08/09/20 08/09/20 Unknown History Tears (polyvin alc)] vitamin B complex 1 tab PO DAILY 08/09/20 08/09/20 Unknown History warfarin 2.5 mg PO SUTUTHSA 08/09/20 08/09/20 Unknown History warfarin 5 mg PO MOWEFR 08/09/20 08/09/20 Unknown History Physical Exam Vital Signs: Vital Signs: Last Vital Signs Temp 100.2 F 08/11/20 15:07 Pulse 80 08/11/20 15:54 Resp 20 08/11/20 15:07 BP 178/94 H 08/11/20 15:07 Pulse Ox 95 08/11/20 15:07 Body Mass Index 18.8 Const: General: no acute distress, alert, awake and tired appearing (Minimally participating in exam) Eyes: Sclerae: sclerae normal EOM: EOMs intact bilaterally Neck: Neck: Yes no lymphadenopathy, Yes trachea midline and Yes supple Resp: Effort & Inspection: normal respiratory effort and no respiratory distress Auscultation: clear to auscultation bilaterally Cardio: Rate: regular rate Rhythm: regular rhythm Heart sounds: no gallops, no murmurs and no rubs GI: Palpation (GI): Soft to palpation and Other GI palpation findings present ( Nontender) Auscultation: normal bowel sounds Extrem: General: No clubbing, No cyanosis and Yes edema (Trace bilateral) Results Laboratory Findings CBC and BMP: 08/11/20 06:22 08/11/20 06:22 ABG, PT/INR, D-dimer: PT/INR, D-dimer PT 20.4 SEC (10.8-13.0) H D 08/11/20 06:22 INR 1.7 (0.9-1.1) H 08/11/20 06:22 Abnormal lab findings: Abnormal Labs 08/08/20 08/08/20 08/08/20 17:47 17:47 17:47 RBC 3.85 L Hgb 11.5 L Hct 35.9 L Plt Count 125 L Immature Gran % (Auto) Neut % (Auto) 84.9 H Lymph % (Auto) 7.6 L Lymph # (Auto) 0.8 L Abs Immat Gran (auto) 0.04 H Absolute Neuts (auto) 8.8 H PT 72.3 H INR 6.0 H* BUN 27 H POC Glucose Random Glucose 161 H Calcium AST 32 H Alkaline Phosphatase 138 H Troponin I High Sens B-Natriuretic Peptide Albumin 3.3 L 08/08/20 08/08/20 08/09/20 17:47 23:33 09:20 RBC 3.60 L Hgb 10.9 L Hct 34.0 L Plt Count 109 L Immature Gran % (Auto) 0.5 H Neut % (Auto) 81.0 H Lymph % (Auto) 9.3 L Lymph # (Auto) 0.8 L Abs Immat Gran (auto) 0.04 H Absolute Neuts (auto) PT INR BUN POC Glucose Random Glucose Calcium AST Alkaline Phosphatase Troponin I High Sens 68.3 H 70.7 H B-Natriuretic Peptide 362 H Albumin 08/09/20 08/09/20 08/09/20 09:20 14:21 18:56 RBC Hgb Hct Plt Count Immature Gran % (Auto) Neut % (Auto) Lymph % (Auto) Lymph # (Auto) Abs Immat Gran (auto) Absolute Neuts (auto) PT 71.1 H INR 5.9 H* BUN 27 H POC Glucose 150 H Random Glucose 116 H Calcium AST Alkaline Phosphatase Troponin I High Sens B-Natriuretic Peptide Albumin 08/10/20 08/11/20 08/11/20 08:16 06:22 06:22 RBC 3.30 L Hgb 10.1 L Hct 31.6 L Plt Count 64 L D Immature Gran % (Auto) 0.5 H Neut % (Auto) Lymph % (Auto) 18.2 L Lymph # (Auto) Abs Immat Gran (auto) Absolute Neuts (auto) PT 93.1 H D 20.4 H D INR 7.7 H* D 1.7 H BUN POC Glucose Random Glucose Calcium AST Alkaline Phosphatase Troponin I High Sens B-Natriuretic Peptide Albumin 08/11/20 06:22 RBC Hgb Hct Plt Count Immature Gran % (Auto) Neut % (Auto) Lymph % (Auto) Lymph # (Auto) Abs Immat Gran (auto) Absolute Neuts (auto) PT INR BUN 22 H POC Glucose Random Glucose Calcium 8.1 L D AST Alkaline Phosphatase Troponin I High Sens B-Natriuretic Peptide Albumin Microbiology: Microbiology 08/08/20 20:48 Blood - Venous Blood Culture - Preliminary No growth after 48 hours. 08/08/20 20:44 Blood - Venous Blood Culture - Preliminary No growth after 48 hours. Assessment and Plan (1) Acute respiratory failure with hypoxia: Status: Acute Impression: Hypoxemia, not fully clear etiology this time. May have worsening pulmonary fibrosis from prior COVID versus. Bronchovascular edema from underlying known combined systolic and diastolic congestive heart failure. May have community-acquired pneumonia component. Recommendations: Agree with a 5-7 day treatment course for community-acquired pneumonia. Would consider working up for acute decompensation of underlying congestive heart failure and possible diuresis. If no significant improvement with diuresis will be noted, will consider starting on systemic glucocorticoids for possible worsening pulmonary fibrosis as a late effect of prior COVID-19 infection. (2) Abnormal CT scan, chest: Status: Acute
[2020-08-11] MEDS: Warfarin Sodium 2.5 MG TABLET PO (16:20)
[2020-08-11] MEDS: 0.9 % Sodium Chloride Flush 3 ML SYRINGE IVFLUSH ×2 (16:21→23:50)
--- NOTE | 2020-08-11 16:43 | PC.NURSE ---
P BP elevated 174/78 ,pulse 96,temp 99.8,patient c/o back pain asking for more pain meds I-dr. Izaguirre notified E-awaiting new orders
[2020-08-11] MEDS: Morphine Sulfate 2 MG/ML CARTRIDGE 1 MG IVPUSH (18:07)
--- NOTE | 2020-08-11 18:16 | PC.NURSE ---
P-temp 100,1 I-dr. Izaguirre made aware e-will monitor
[2020-08-11] MEDS: Metoprolol Tartrate 25 MG TABLET 50 MG PO (20:02)
[2020-08-12] VITALS (12 sets, daily range): BP systolic 111–156; BP diastolic 51–72; PULSE 81–125; RESP 16–21; TEMP 36.4–37.3; O2SAT 90–100
[2020-08-12 04:23] LABS: Strep Pneumo Ag urine Not Detected (Not Detected)
[2020-08-12 06:52] LABS: Basophils Percent Auto 0.4 % (0-2); Hematocrit 30.9 % (37-47); Hemoglobin 9.9 g/dl (12.0-16.0); Imm Gran Abs Auto 0.12 X10*3/uL (0.00-0.03); Imm Gran Pct Auto 1.1 % (0.0-0.4); Lymphocytes Absolute Auto 0.6 X10*3/uL (1.2-4.9); Lymphocytes Percent Auto 5.2 % (20-40); MANUAL DIFF FLAG SCAN; Mean Corpuscular Hemoglobin 29.6 pg (27.0-33.0); Mean Corpuscular Volume 92.5 fL (80-98); Mean Platelet Volume 10.6 fL (9.4-12.3); Monocytes Absolute Auto 0.9 X10*3/uL (0.1-1.2); Monocytes Percent Auto 8.3 % (2-11); Neutrophils Absolute Auto 9.7 X10*3/uL (2.0-8.3); Red Blood Count 3.34 X10*6/uL (4.20-5.50); Red Cell Distribution Width 13.2 % (11.0-16.0); SCAN SMEAR FLAG 1; White Blood Count 11.4 X10*3/uL (4.8-10.8)
[2020-08-12 06:55] LABS: INTERNATIONAL NORM RATIO 1.8 (0.9-1.1); Prothrombin Time 21.9 SEC (10.8-13.0)
[2020-08-12 07:03] LABS: B Type Natriuretic Peptide 1012 pg/mL (<100)
[2020-08-12 07:13] LABS: Platelet Count 44 X10*3/uL (160-400)
[2020-08-12] MEDS: Albuterol/Iprat 2.5/0.5MG 3 ML AMPUL.NEB INHALE ×4 (08:27→20:22)
--- NOTE | 2020-08-12 08:34 | ECG_ITS ---
Test Reason : CP Blood Pressure : / mmHG Vent. Rate : 094 BPM Atrial Rate : 094 BPM P-R Int : 192 ms QRS Dur : 128 ms QT Int : 384 ms P-R-T Axes : 081 -52 086 degrees QTc Int : 480 ms Normal sinus rhythm Left axis deviation Left bundle branch block Abnormal ECG When compared with ECG of 08-AUG-2020 23:26, ST less elevated in Anterior leads T wave inversion now evident in Inferior leads T wave inversion less evident in Lateral leads Referred By: Michaela Tejeda Electronically Signed By:EMORY BAILEY MD
[2020-08-12 08:41] LABS: Anion Gap 15 (12-20); Blood Urea Nitrogen 21 mg/dL (9-16); Calcium 7.9 mg/dL (8.4-10.2); Carbon Dioxide 30 mmol/L (22-29); Chloride 100 mmol/L (96-108); Creatinine Clr Calc Pharmacy 52.7; Estimated Glomerular Filt Rate > 60; Glucose Random 171 mg/dL (60-115); Potassium 3.7 mmol/L (3.3-5.1); Sodium 141 mmol/L (135-145)
[2020-08-12 08:49] LABS: Lactic Acid 0.4 mmol/L (0.5-2.0)
[2020-08-12 09:04] LABS: SLIDE REVIEW VERIFIED
--- NOTE | 2020-08-12 10:01 | PC.NURSE ---
forwarded result of TROP-IHS of 108.[address] Izaguirre
[2020-08-12 10:06] LABS: Troponin-I High Sensitivity 108.2 ng/L (<3.5-17.0)
[2020-08-12] MEDS: 0.9 % Sodium Chloride Flush 3 ML SYRINGE IVFLUSH ×2 (10:06→18:32)
[2020-08-12] MEDS: methylPREDNISolone Sod Succ 40 MG/ML VIAL IVPUSH ×2 (10:07→18:32)
[2020-08-12] MEDS: Gabapentin 100 MG CAPSULE 200 MG PO (10:08)
[2020-08-12] MEDS: Metoprolol Tartrate 25 MG TABLET 50 MG PO ×2 (10:09→20:46)
[2020-08-12] MEDS: cloBAZam 10 MG TABLET 5 MG PO (10:09)
[2020-08-12] MEDS: chlordiazePOXIDE HCl 5 MG CAPSULE PO ×2 (10:10→20:46)
[2020-08-12] MEDS: Loratadine 10 MG TABLET PO (10:11)
[2020-08-12] MEDS: Doxycycline Hyclate 100 MG in 0.9 % Sodium Chloride 250 ML 167 MG IV (10:11)
[2020-08-12] MEDS: Piperacillin Sodium/Tazobactam 4.5 GM in 0.9 % Sodium Chloride 100 ML IV ×3 (10:20→22:47)
--- NOTE | 2020-08-12 10:28 | HO.PM.IMPN ---
Subjective Subjective Date of Service: 08/12/20 Interval History: f/u for respiratory failure/pneumonia This morning lethargic. complaining of chest pain Physical Exam Vital Signs: Vital Signs: Last Vital Signs Temp 98.4 F 08/12/20 07:16 Pulse 88 08/12/20 08:27 Resp 21 H 08/12/20 07:16 BP 118/51 L 08/12/20 07:16 Pulse Ox 100 08/12/20 07:16 Body Mass Index 18.8 Const: General: lethargic Nutritional Appearance: thin Orientation/consciousness: lethargic HENMT: Head: Yes normocephalic and Yes atraumatic Eyes: Sclerae: sclerae normal Chest: Chest palpation & inspection: normal inspection of the chest Resp: Other: b/l inspiratory rhonchi Effort & Inspection: no respiratory distress Cardio: Rate: regular rate Rhythm: regular rhythm GI: Palpation (GI): Soft to palpation and nontender Skin: General skin exam: no rashes or lesions noted Neuro: Cranial nerves: Yes CN's II-XII intact bilaterally and Yes Bilaterally intact EOM present Extrem: Other: left hemiplegia General: Yes normal to inspection Objective Data Current Medications Generic Name Dose Route Start Last Admin Trade Name Freq PRN Reason Stop Dose Admin Al Hydroxide/Mg Hydroxide 15 ml 08/09/20 18:53 08/09/20 20:21 Magnesium Hydrox/Alum Hydrox 30 Ml Oral.Susp PO 15 ml Q6H PRN Administration GI UPSET Albuterol Sulfate 2.5 mg 08/11/20 11:51 Albuterol Sulfate (0.083%) 2.5 Mg/3 Ml Vial.Neb INHALE RQ4H PRN Shortness of Breath Albuterol/Ipratropium 3 ml 08/11/20 12:00 08/12/20 08:27 Albuterol/Iprat 2.5/0.5mg 3 Ml Ampul.Neb INHALE 3 ml RQ4H WHILE AWAKE LEO Administration Aspirin 81 mg 08/10/20 09:00 08/11/20 09:46 Aspirin Enteric Coated 81 Mg Tablet.Dr PO 81 mg DAILY [facility] Administration Chlordiazepoxide HCl 5 mg 08/09/20 21:00 08/11/20 20:02 Chlordiazepoxide Hcl 5 Mg Capsule PO 5 mg BID LEO Administration Clobazam 5 mg 08/10/20 09:00 08/11/20 09:47 Clobazam 10 Mg Tablet PO 5 mg DAILY [facility] Administration Docusate Sodium 100 mg 08/09/20 08:16 Docusate Sodium 100 Mg Capsule PO DAILY PRN Constipation Gabapentin 200 mg 08/09/20 21:00 08/11/20 20:02 Gabapentin 100 Mg Capsule PO 200 mg BID LEO Administration Doxycycline Hyclate 100 mg/ 250 mls @ 166.67 mls/hr 08/09/20 21:00 08/11/20 21:31 Sodium Chloride IV Infused Q12H [facility]O Infusion Piperacillin Sod/Tazobactam 100 mls @ 200 mls/hr 08/12/20 10:00 Sod 4.5 gm/ Sodium Chloride IV Q6H LEO Loratadine 10 mg 08/10/20 09:00 08/11/20 09:46 Loratadine 10 Mg Tablet PO 10 mg DAILY [facility] Administration Melatonin 6 mg 08/09/20 14:00 08/10/20 20:37 Melatonin 3 Mg Tablet PO 6 mg BEDTIME PRN Administration Insomnia Methylprednisolone Sodium Succinate 40 mg 08/12/20 08:45 Methylprednisolone Sod Succ 40 Mg/Ml Vial IVPUSH Q8H [facility] Metoprolol Tartrate 50 mg 08/11/20 21:00 08/11/20 20:02 Metoprolol Tartrate 25 Mg Tablet PO 50 mg BID LEO Administration Protocol Multivitamins 1 tab 08/10/20 09:00 08/11/20 09:46 B-Complex With Vitamin C Tablet PO 1 tab DAILY [facility] Administration Ondansetron HCl 4 mg 08/09/20 08:16 Ondansetron Hcl 4 Mg/2 Ml Vial IVPUSH Q8H PRN Nausea and Vomiting Oxybutynin Chloride 10 mg 08/10/20 09:00 08/11/20 09:47 Oxybutynin Chloride Er 5 Mg Tab.Er.24 PO 10 mg DAILY [facility] Administration Oxycodone HCl 2.5 mg 08/12/20 08:40 Oxycodone Hcl Immed Release 5 Mg Tablet PO TID PRN Moderate Pain (Scale Score 5-6) Pharmacy Consult 1 each 08/09/20 08:20 Consult Rx Perform Med Rec MISCELLANE ONCE PRN Consult order Sodium Chloride 3 ml 08/09/20 08:16 08/11/20 23:50 0.9 % Sodium Chloride Flush 3 Ml Syringe IVFLUSH 3 ml QSHIFT [facility] Administration Warfarin Sodium 5 mg 08/12/20 18:00 Warfarin Sodium 5 Mg Tablet PO [email or web address] [facility] Warfarin Sodium 2.5 mg 08/11/20 18:00 08/11/20 16:20 Warfarin Sodium 2.5 Mg Tablet PO 2.5 mg [email or web address] [facility] Administration Labs CBC & Chem 7: 08/12/20 06:18 08/12/20 06:18 Microbiology Microbiology Results: Microbiology 08/08/20 20:48 Blood - Venous Blood Culture - Preliminary No growth after 48 hours. 08/08/20 20:44 Blood - Venous Blood Culture - Preliminary No growth after 48 hours. Assessment and Plan (1) Acute respiratory failure with hypoxia: Status: Acute (2) Pneumonia: Status: Acute (3) Warfarin-induced coagulopathy: Status: Acute (4) Supratherapeutic INR: Status: Acute Assessment and Plan: This is a 65-year-old female who presents to the hospital from [facility] with hypoxia. Acute resp. failure with hypoxia due to chronic lung issues + possibly super-imposed pneumonia h/o covid ? cause of chronic lung changes still requiring oxygen -seen by pulmonology, feels there is component of heart failure vs. lung fibrosis -continue supplemental o2 prn -continue breathing treatments -start solu-medrol -ABG to rule out co2 retention -hold sedating meds Pneumonia fever overnight ? aspiration -Has received ceftriaxone/doxy x 3 days, will change ceftriazone to zosyn to cover for aspiration and continue doxycycline -speech eval NSTEMI Trop flat on admission. Repeated this am due to complaints of chest pain, returned 108 EKG pending. -trend trop -cardiology consult -echo -will check lipid profile, not on statin despite h/o cva, unclear reason why Sepsis Fever 100.7 and tachycardia last night Has been on antibiotics for pneumonia possible aspiration, antibiotics adjusted will repeat blood cultures, check lactic acid thrombocytopenia is chronic and not related to sepsis h/o HFrEF echo from 09/21 with EF 35-40% not on diuretics at baseline. received one dose of lasix yesterday. BNP elevated 1012 today, will repeat CXR -will consult cardiology Antiphospholipid syndrome, history of DVT on coumadin, 1.8 -Continue coumadin -Follow INR, CBC History of CVA, hemiplegia Will hold ASA due to worsening thrombocytopenia Not on statin Thrombocytopenia Chronic, drop to 64 -Hold ASA -follow CBC Normocytic anemia Chronic, at baseline -follow CBC Chronic pain frequently requesting pain medication continue home medication continue baseline meds Full Code DVT pptx Coumadin This case was discussed with Dr. Izaguirre
[2020-08-12 10:54] LABS: ABG Refer to POC result
[2020-08-12 10:54] LABS: ABG Base Excess 8.2 mmol/L; ABG HCO3 34 mmol/L (22-26); ABG pCO2 55 mmHg (32-45); ABG pCO2 TC 54 mmHg (32-45); ABG pO2 117 mmHg (83-108); ABG pO2 TC 115 (83-108)
--- NOTE | 2020-08-12 11:00 | CA_ITS ---
Transthoracic Echocardiogram Patient (Last, First, Middle): Yen Ross, Gender: Female Date of : 1955 Age: 65 Procedure Date: 08/12/2020 Procedure Type: Transthoracic Echocardiogram Location: S3W Height: 162.56 cm Weight: 49.9 kg BSA: 1.52 m2 Heart Rate: bpm BP: 111 / 58 mmHg Supervisor Pleating: JOSE Guevara MD: Michaela ASHFORD Symptoms: nstemi, chf Study Quality: Good Conclusions: - The left ventricular systolic function is mildly decreased. The visually estimated ejection fraction is between 40-45%. - There is paradoxical septal motion consistent with a left bundle branch block. - Diastolic function is indeterminate on the basis of available data. - The inferoseptal wall, the mid inferior, and apical septum segments are dyskinetic. - There is mild aortic valve stenosis. Findings Left Ventricle Normal left ventricular cavity size. There is mildly increased left ventricular wall thickness. The left ventricular systolic function is mildly decreased. The visually estimated ejection fraction is between 40-45%. There is evidence of regional wall motion abnormalities. There is paradoxical septal motion consistent with a left bundle branch block. Diastolic function is indeterminate on the basis of available data. Wall Motion Rest Echo Findings The inferoseptal wall, the mid inferior, and apical septum segments are dyskinetic. Right Ventricle Normal right ventricular cavity size. There is borderline right ventricular systolic function. Atria The left atrium is moderately dilated. Aortic Valve There is a normal trileaflet aortic valve. There is mild thickening of the aortic valve. There is mild aortic valve stenosis. There is no aortic valve regurgitation. Mitral Valve Normal mitral valve structure and function. There is trace mitral valve regurgitation. There is no mitral valve stenosis. Pulmonic Valve Normal pulmonic valve structure and function. There is trace pulmonic valve regurgitation. Tricuspid Valve Normal tricuspid valve structure and function. There is mild tricuspid valve regurgitation. Great Vessels There is mild dilatation of the ascending aorta. Prior Study Comparison Changes noted compared to prior study dated: 09/30/2019. EF 40-45%. Mild , mid inferior and inferoseptal rodriguez appear dyskinetic. Measurements 2D Linear Measurements IVSd: 1.16 0.6-0.9/0.6-1.0 cm LVIDd: 4.35 3.9-5.3/4.2-5.9 cm LVIDd Index: 2.86 2.4-3.2/2.2-3.1 cm/m2 LVIDs: 3.84 2.0-3.6 cm LVPWd: 1.13 0.7-1.1 cm Ao Root: 3.30 2.1-3.5 cm LA Diam: 3.00 2.7-3.8/3.0-4.0 cm LAIDs Index: 1.97 1.5-2.3 cm/m2 LV Mass: 218.86 67-162/88-224 g LV Mass Index: 143.99 43-95/49-115 g/m2 LVOT Diam: 2.00 3.0+(-)1.3 cm 2D Systolic Function EF 4C: 41.70 >55% EF 2C: 54.30 >55% EF BiP: 49.30 >55% Mitral Valve MV Pk E: 0.92 MV PK A: 0.69 MV Decel Time: 164.00 E/A: 1.30 E'Lateral: 9.68 E'Medial: 5.66 E/E' Med: 16.20 E/E' Lat: 9.50 PHT: 48.00 MVA PHT: 4.58 Decel [place]: 5.58 Aortic Valve AoV Pk Juan F: 1.99 AoV Mn Juan F: 1.28 AoV VTI: 0.33 AoV Pk Grad: 16.00 Aov Mn Grad: 8.00 JED Cont.VTI: 1.91 LVOT LVOT Pk Juan F: 1.09 LVOT Mn Juan F: 0.70 LVOT VTI: 0.20 LVOT Pk Grad: 5.00 LVOT Mn Grad: 2.00 LVOT Diam: 2.00 LVOT Area: 3.14 Diastolic Function MV Pk E: 0.92 MV Pk A: 0.69 E/A: 1.30 E'Medial: 5.66 E/E' Med: 16.20 E' Laterial: 9.68 E/E' Lat: 9.50 Tricuspid Valve TR Pk Juan F: 3.18 TR Pk Grad: 40.00 RA Press: 3.00 RVSP: 43.00 Great Vessels Aorta Ao Root-2D: 3.30 2.0-3.7 cm Ao Asc: 3.30 2.1-3.4 cm Updated in Other Vendor System with Status of Final Karri Mendoza MD electronically signed on 08/13/2020 10:10:26 AM with status of Final
[2020-08-12 11:34] LABS: Cholesterol 127 mg/dL; HDL Cholesterol 29 mg/dL; LDL Cholesterol Calculated 80 mg/dl; Triglycerides 91 mg/dL
--- NOTE | 2020-08-12 12:10 | PM.CNCAR ---
History of Present Illness History of Present Illness Date of Service: 08/12/20 Requesting physician: Michaela Tejeda Chief complaint: Hypoxia, elevated troponin Narrative: 65-year-old female background history of antiphospholipid syndrome on chronic Coumadin and COVID-19 infection in May old presenting with hypoxia. She has been diagnosed with pneumonia and started on antibiotics. She was seen by pulmonology and concern for heart failure was raised. She has elevated BNP. She has previously known reduced ejection fraction of 35-40% based on echocardiography last year. She also had regional wall motion abnormality with inferior, inferoseptal wall akinesis as well as apical septal akinesis. She is presenting with hypoxia and shortness of breath. As per chart review she was found to be saturating in 70s at the nursing facility and then transferred. She is currently on breathing treatment and quite sleepy. She did not answer any questions but was arousable. She has mildly elevated troponin and blood workup. BNP was elevated. [facility] Past Medical History Medical History Anticoagulated on Coumadin Antiphospholipid syndrome Cerebrovascular accident (CVA) with left hemiparesis Chronic anemia Depression DVT (deep venous thrombosis) Glaucoma Hypertension Obsessive compulsive disorder Peripheral vascular disease Respiratory failure Thrombocytopenia Social History Social History Household Members: None Housing: Retirement Do you presently have visiting nurse or other home services: No Smoking Status: Never smoker Second Hand Smoke Exposure: No Use of substances other than those prescribed or required for medical reasons: No Currently Displaying Signs/Symptoms of Drug Intoxication Withdrawal: No Have you been hit, kicked, punched, or otherwise hurt by someone within the past year? If so, by whom?: No Do you feel safe in your current relationship?: Yes Is there a partner from a previous relationship who is making you feel unsafe now?: No Are you made to feel afraid or neglected: No Advance Directives: No Advance Directives Information Provided: No Do you have thoughts of harming others: None Do you have a plan to hurt others: No Plan Recently lost weight without trying: Unsure service: No Current occupational status: disabled Meds Allergies Allergy/AdvReac Type Severity Reaction Status Date / Time acetaminophen [Vicodin] Allergy Unknown vomiting Verified 04/14/19 00:00 hydrocodone [Vicodin] Allergy Unknown vomiting Verified 04/14/19 00:00 lactose [LACTOSE] Allergy Unknown UNKNOWN Verified 08/09/20 15:55 lamotrigine [From LAMICTAL] Allergy Unknown UNKNOWN Verified 08/09/20 15:55 NSAIDS (Non-Steroidal AdvReac Mild KIDNEY Verified 08/09/20 15:55 Anti-Inflamma DISEASE= [NSAIDS (NON-STEROIDAL ANTI-INFLAMMA] dairy products Allergy Unknown diarrhea Uncoded 04/14/19 00:00 From VICODIN Allergy Unknown UNKNOWN Uncoded 02/18/20 17:50 hydrocodone-acetaminophen Allergy Unknown Unknown Uncoded 08/09/20 15:55 comp Active Medications: Current Medications Generic Name Dose Route Start Last Admin Trade Name Freq PRN Reason Stop Dose Admin Al Hydroxide/Mg Hydroxide 15 ml 08/09/20 18:53 08/09/20 20:21 Magnesium Hydrox/Alum Hydrox 30 Ml Oral.Susp PO 15 ml Q6H PRN Administration GI UPSET Albuterol Sulfate 2.5 mg 08/11/20 11:51 Albuterol Sulfate (0.083%) 2.5 Mg/3 Ml Vial.Neb INHALE RQ4H PRN Shortness of Breath Albuterol/Ipratropium 3 ml 08/11/20 12:00 08/12/20 11:29 Albuterol/Iprat 2.5/0.5mg 3 Ml Ampul.Neb INHALE 3 ml RQ4H WHILE AWAKE LEO Administration Aspirin 81 mg 08/10/20 09:00 08/12/20 10:16 Aspirin Enteric Coated 81 Mg Tablet.Dr PO Not Given DAILY LEO Chlordiazepoxide HCl 5 mg 08/09/20 21:00 08/12/20 10:10 Chlordiazepoxide Hcl 5 Mg Capsule PO 5 mg BID LEO Administration Clobazam 5 mg 08/10/20 09:00 08/12/20 10:09 Clobazam 10 Mg Tablet PO 5 mg DAILY LEO Administration Docusate Sodium 100 mg 08/09/20 08:16 Docusate Sodium 100 Mg Capsule PO DAILY PRN Constipation Gabapentin 200 mg 08/09/20 21:00 08/12/20 10:08 Gabapentin 100 Mg Capsule PO 200 mg BID LEO Administration Doxycycline Hyclate 100 mg/ 250 mls @ 166.67 mls/hr 08/09/20 21:00 08/12/20 10:55 Sodium Chloride IV 0 mls/hr Q12H LEO Infusion Piperacillin Sod/Tazobactam 100 mls @ 200 mls/hr 08/12/20 10:00 08/12/20 10:20 Sod 4.5 gm/ Sodium Chloride IV 200 mls/hr Q6H LEO Administration Loratadine 10 mg 08/10/20 09:00 08/12/20 10:11 Loratadine 10 Mg Tablet PO 10 mg DAILY LEO Administration Melatonin 6 mg 08/09/20 14:00 08/10/20 20:37 Melatonin 3 Mg Tablet PO 6 mg BEDTIME PRN Administration Insomnia Methylprednisolone Sodium Succinate 40 mg 08/12/20 08:45 08/12/20 10:07 Methylprednisolone Sod Succ 40 Mg/Ml Vial IVPUSH 40 mg Q8H LEO Administration Metoprolol Tartrate 50 mg 08/11/20 21:00 08/12/20 10:09 Metoprolol Tartrate 25 Mg Tablet PO 50 mg BID [facility] Administration Protocol Multivitamins 1 tab 08/10/20 09:00 08/12/20 10:08 B-Complex With Vitamin C Tablet PO 1 tab DAILY LEO Administration Ondansetron HCl 4 mg 08/09/20 08:16 Ondansetron Hcl 4 Mg/2 Ml Vial IVPUSH Q8H PRN Nausea and Vomiting Oxybutynin Chloride 10 mg 08/10/20 09:00 08/12/20 10:07 Oxybutynin Chloride Er 5 Mg Tab.Er.24 PO 10 mg DAILY [facility] Administration Oxycodone HCl 2.5 mg 08/12/20 08:40 Oxycodone Hcl Immed Release 5 Mg Tablet PO TID PRN Moderate Pain (Scale Score 5-6) Pharmacy Consult 1 each 08/09/20 08:20 Consult Rx Perform Med Rec MISCELLANE ONCE PRN Consult order Sodium Chloride 3 ml 08/09/20 08:16 08/12/20 10:06 0.9 % Sodium Chloride Flush 3 Ml Syringe IVFLUSH 3 ml QSHIFT [facility] Administration Warfarin Sodium 5 mg 08/12/20 18:00 Warfarin Sodium 5 Mg Tablet PO [email or web address] [facility] Warfarin Sodium 2.5 mg 08/11/20 18:00 08/11/20 16:20 Warfarin Sodium 2.5 Mg Tablet PO 2.5 mg [email or web address] [facility] Administration Home Medications Medication Instructions Recorded Confirmed Last Taken Type alum-mag hydroxide-simeth 15 ml PO Q6H PRN 08/09/20 08/09/20 Unknown History [Feli-Lanta] ammonium lactate [Lac-Hydrin] 1 appl TOPICAL BID 08/09/20 08/09/20 Unknown History aspirin 81 mg PO DAILY 08/09/20 08/09/20 Unknown History betamethasone dipropionate 1 appl TOPICAL Q3D 08/09/20 08/09/20 Unknown History bisacodyl 10 mg AR DAILY PRN 08/09/20 08/09/20 Unknown History cetirizine 10 mg PO DAILY 08/09/20 08/09/20 Unknown History chlordiazepoxide HCl 5 mg PO BID 08/09/20 08/09/20 Unknown History clobazam 5 mg PO DAILY 08/09/20 08/09/20 Unknown History ferrous sulfate 325 mg PO BID 08/09/20 08/09/20 Unknown History gabapentin 200 mg PO BID 08/09/20 08/09/20 Unknown History horse chestnut 300 mg PO DAILY 08/09/20 08/09/20 Unknown History lactase [Lactaid] 3,000 unit PO QID PRN 08/09/20 08/09/20 Unknown History melatonin 5 mg PO BEDTIME PRN 08/09/20 08/09/20 Unknown History methylcellulose (with sugar) 1 tbsp PO DAILY PRN 08/09/20 08/09/20 Unknown History [Citrucel (sucrose)] metoprolol tartrate 25 mg PO TID 08/09/20 08/09/20 Unknown History mometasone 1 spray INTRANASAL Q12H PRN 08/09/20 08/09/20 Unknown History multivitamin [Multivites] 1 tab PO DAILY 08/09/20 08/09/20 Unknown History oxybutynin chloride 10 mg PO DAILY 08/09/20 08/09/20 Unknown History oxycodone-acetaminophen 0.5 tab PO TID PRN 08/09/20 08/09/20 Unknown History polyvinyl alcohol [Artificial 2 drp OPHTHALMIC (EYE) QID PRN 08/09/20 08/09/20 Unknown History Tears (polyvin alc)] vitamin B complex 1 tab PO DAILY 08/09/20 08/09/20 Unknown History warfarin 2.5 mg PO SUTUTHSA 08/09/20 08/09/20 Unknown History warfarin 5 mg PO AURELIAWE 08/09/20 08/09/20 Unknown History Physical Exam Vital Signs: Vital Signs: Last Vital Signs Temp 97.5 F 08/12/20 11:07 Pulse 86 08/12/20 11:32 Resp 16 08/12/20 11:07 BP 111/58 L 08/12/20 11:07 Pulse Ox 100 08/12/20 11:07 Body Mass Index 18.8 GENERAL APPEARANCE: Lethargic and sleepy. Easily arousable but not answering questions. HEENT: unremarkable. HEAD: normocephalic, atraumatic. NECK/THYROID: no carotid bruit, no jugular venous distention. SKIN: no suspicious lesions, warm and dry. HEART: no murmurs, regular rate and rhythm, S1, S2 normal. LUNGS: clear to auscultation anteriorly. ABDOMEN: normal, bowel sounds present, soft, nontender, nondistended. EXTREMITIES: no clubbing, cyanosis, or edema. PERIPHERAL PULSES: equal. NEUROLOGIC: Sleepy but arousable. Results Labs and Meds Result diagrams: 08/12/20 06:18 08/12/20 06:18 Lab results: Laboratory Results - last 24 hr 08/09/20 08/12/20 08/12/20 10:19 06:18 06:18 WBC RBC Hgb Hct MCV MCH MCHC RDW Plt Count MPV Immature Gran % (Auto) Neut % (Auto) Lymph % (Auto) [place] % (Auto) Eos % (Auto) Baso % (Auto) Lymph # (Auto) [place] # (Auto) Eos # (Auto) Baso # (Auto) Abs Immat Gran (auto) Absolute Neuts (auto) Absolute Nucleated RBC Nucleated RBC % (auto) Smear Tech's Comments PT 21.9 H INR 1.8 H O2 Saturation ABG pH at Pt Temp ABG pH (Temp Correct) ABG pCO2 at Pt Temp ABG pCO2 (Temp Corrct ABG pO2 at Pt Temp ABG pO2 (Temp Correct ABG HCO3 ABG Base Excess (Actual) Sodium Potassium Chloride Carbon Dioxide Anion Gap BUN Creatinine Estim Creat Clear Calc Estimated GFR Random Glucose Lactic Acid Calcium Troponin I High Sens B-Natriuretic Peptide 1012 H Triglycerides Cholesterol LDL Cholesterol, Calc HDL Cholesterol Ur Strep pneumoniae Ag Not Detected 08/12/20 08/12/20 08/12/20 06:18 06:18 06:18 WBC 11.4 H RBC 3.34 L Hgb 9.9 L Hct 30.9 L MCV 92.5 MCH 29.6 MCHC 32.0 RDW 13.2 Plt Count 44 L D MPV 10.6 Immature Gran % (Auto) 1.1 H Neut % (Auto) 85.0 H Lymph % (Auto) 5.2 L [place] % (Auto) 8.3 Eos % (Auto) 0.0 Baso % (Auto) 0.4 Lymph # (Auto) 0.6 L [place] # (Auto) 0.9 Eos # (Auto) 0.0 Baso # (Auto) 0.0 Abs Immat Gran (auto) 0.12 H Absolute Neuts (auto) 9.7 H Absolute Nucleated RBC 0.000 Nucleated RBC % (auto) 0.0 Smear Tech's Comments VERIFIED PT INR O2 Saturation ABG pH at Pt Temp ABG pH (Temp Correct) ABG pCO2 at Pt Temp ABG pCO2 (Temp Corrct ABG pO2 at Pt Temp ABG pO2 (Temp Correct ABG HCO3 ABG Base Excess (Actual) Sodium 141 Potassium 3.7 Chloride 100 Carbon Dioxide 30 H Anion Gap 15 BUN 21 H Creatinine 0.86 Estim Creat Clear Calc 52.7 Estimated GFR > 60 Random Glucose 171 H D Lactic Acid Calcium 7.9 L Troponin I High Sens 108.2 H D B-Natriuretic Peptide Triglycerides 91 Cholesterol 127 LDL Cholesterol, Calc 80 HDL Cholesterol 29 Ur Strep pneumoniae Ag 08/12/20 08/12/20 07:48 10:49 WBC RBC Hgb Hct MCV MCH MCHC RDW Plt Count MPV Immature Gran % (Auto) Neut % (Auto) Lymph % (Auto) [place] % (Auto) Eos % (Auto) Baso % (Auto) Lymph # (Auto) [place] # (Auto) Eos # (Auto) Baso # (Auto) Abs Immat Gran (auto) Absolute Neuts (auto) Absolute Nucleated RBC Nucleated RBC % (auto) Smear Tech's Comments PT INR O2 Saturation 98.0 ABG pH at Pt Temp 7.40 ABG pH (Temp Correct) 7.40 ABG pCO2 at Pt Temp 55 H ABG pCO2 (Temp Corrct 54 H ABG pO2 at Pt Temp 117 H ABG pO2 (Temp Correct 115 H ABG HCO3 34 H ABG Base Excess (Actual) 8.2 Sodium Potassium Chloride Carbon Dioxide Anion Gap BUN Creatinine Estim Creat Clear Calc Estimated GFR Random Glucose Lactic Acid 0.4 L Calcium Troponin I High Sens B-Natriuretic Peptide Triglycerides Cholesterol LDL Cholesterol, Calc HDL Cholesterol Ur Strep pneumoniae Ag Imaging Radiologist's impression: Impressions Chest X-Ray 08/12/20 09:22 IMPRESSION: Hypoexpanded lungs with chronic interstitial lung changes with likely superimposed infiltrates as described above. The findings are unchanged to chest x-ray and CT chest 08/08/2020 Assessment and Plan (1) Hypoxia: Status: Acute (2) Elevated troponin: Status: Acute 65-year-old female with COVID-19 fraction May is presenting with worsening hypoxia. She has chronic interstitial changes on the CT scan concerning for scarring. This is reported COVID-19. She does not look volume overloaded by exam. She has heart failure with reduced ejection fraction and had EF of 35-40% with regional wall motion abnormalities in the past. Her troponin level is mildly elevated and likely due to type 2 injury due to hypoxia. I think low-dose diuretics can be tried to see if her oxygen demand changes. Also if she is in a negative balance her chest x-ray can be recheck to see if the infiltrates are improving. If the do not change with diuresis then it is likely that these changes are not due to fluid and are likely due to interstitial injury or infection. She should continue Coumadin for her antiphospholipid syndrome. Thank you for allowing me to participate in the care of your patient. Please feel free to contact me if you have any questions.
--- NOTE | 2020-08-12 12:28 | MHC.CM.PN ---
EMR REVIEWED, PER MULTIDISCIPLINARY ROUNDS PT SPIKE FEVER ON OVERNIGHT AND C/O CHEST PAIN, PLAN FOR CARDIOLOGY WORK-UP, NO D/C PLANNED FOR TODAY, CARE OF AMLIN UPDATED IN [facility]. DISCHARGE PLAN: RETURN TO [facility]
--- NOTE | 2020-08-12 14:20 | PC.NURSE ---
CONTACTED DR. MOORE AT 11:50 CONCERNING THE TROPONIN NOT BEING DRAWN AND THE ORDER NEEDED TO BE CHANGED. ORDER WAS CHANGED, SAME ORDER PUT IN AGAIN. TIGERTEXTED OTILIO ASHFORD AND SHE STATED SHE PUT THE ORDER IN TWICE AND THERE WAS NO OTHER WAY TO PUT IT IN. I TOLD HER VIA TIGERTEXTED THAT THE LAB IS UNABLE TO SEE THE ORDER AND THEREFORE WILL NOT COME UP AND DRAW IT.
--- NOTE | 2020-08-12 14:28 | PC.NURSE ---
PT IV INFILTRATED, UNABLE TO RESTART CALLED SUPERVISIOR WHO STATED HE WOULD BE UP TO START IT, UNABLE TO GIVE THE STAT DOSE OF LASIX AND IV ANTIBIOTIC ONLY 1/2 DONE WHEN IV INFILTRATED. REPORT GIVEN TO [facility] FOR [facility]SFER UP. SPOKE WITH SUPERVISIOR AGAIN IF HE CAN NO START ON MED SURG HE WOULD START THE IV IN IM.
--- NOTE | 2020-08-12 14:39 | MHC.CLN ---
F/U PO INTAKE 25% DIET RX: REGULAR-INFORMATION ASSISTANT RECOMMENDS GRD M/S SEE REC 08/12/20 PT RECEIVING ENSURE BID TO INCREASE KCALS WILL UPDATE DIET MONITOR PO INTAKE CLOSELY
[2020-08-12 16:13] LABS: Troponin-I High Sensitivity 67.8 ng/L (<3.5-17.0)
[2020-08-12 17:12] LABS: Legionella Ag Urine Not Detected (Not Detected)
[2020-08-12] MEDS: Furosemide 40 MG/4 ML VIAL IVPUSH (18:31)
[2020-08-12] MEDS: Doxycycline Hyclate 100 MG in 0.9 % Sodium Chloride 250 ML 166.67 MG IV (20:44)
[2020-08-12] MEDS: Warfarin Sodium 5 MG TABLET PO (20:46)
[2020-08-12] MEDS: Melatonin 3 MG TABLET 6 MG PO (22:47)
[2020-08-13] VITALS (9 sets, daily range): BP systolic 127–149; BP diastolic 62–79; PULSE 81–99; RESP 16–35; TEMP 36.1–37.2; O2SAT 83–99; BMI 18.9
[2020-08-13] MEDS: methylPREDNISolone Sod Succ 40 MG/ML VIAL IVPUSH ×2 (01:32→09:43)
[2020-08-13] MEDS: Piperacillin Sodium/Tazobactam 4.5 GM in 0.9 % Sodium Chloride 100 ML IV ×3 (05:36→17:09)
[2020-08-13 07:05] LABS: Hematocrit 28.8 % (37-47); Hemoglobin 9.2 g/dl (12.0-16.0); Imm Gran Abs Auto 0.03 X10*3/uL (0.00-0.03); Imm Gran Pct Auto 0.8 % (0.0-0.4); Lymphocytes Absolute Auto 0.4 X10*3/uL (1.2-4.9); Lymphocytes Percent Auto 11.1 % (20-40); MANUAL DIFF FLAG SCAN; Mean Corpuscular HGB Conc 31.9 g/dl (31.0-35.0); Mean Corpuscular Hemoglobin 29.9 pg (27.0-33.0); Mean Corpuscular Volume 93.5 fL (80-98); Mean Platelet Volume 11.7 fL (9.4-12.3); Monocytes Absolute Auto 0.1 X10*3/uL (0.1-1.2); Monocytes Percent Auto 2.9 % (2-11); Neutrophils Absolute Auto 3.2 X10*3/uL (2.0-8.3); Neutrophils Percent Auto 85.2 % (45-73); Red Blood Count 3.08 X10*6/uL (4.20-5.50); Red Cell Distribution Width 13.2 % (11.0-16.0); SCAN SMEAR FLAG 1; White Blood Count 3.8 X10*3/uL (4.8-10.8)
[2020-08-13 07:20] LABS: INTERNATIONAL NORM RATIO 2.1 (0.9-1.1); Prothrombin Time 25.7 SEC (10.8-13.0)
[2020-08-13 07:27] LABS: Platelet Count 46 X10*3/uL (160-400)
[2020-08-13 07:32] LABS: Anion Gap 18 (12-20); Blood Urea Nitrogen 27 mg/dL (9-16); Calcium 8.4 mg/dL (8.4-10.2); Carbon Dioxide 31 mmol/L (22-29); Chloride 99 mmol/L (96-108); Creatinine Clr Calc Pharmacy 38.8; Estimated Glomerular Filt Rate 47; Glucose Random 197 mg/dL (60-115); Potassium 3.6 mmol/L (3.3-5.1); Sodium 144 mmol/L (135-145)
[2020-08-13 07:45] LABS: SLIDE REVIEW VERIFIED
--- NOTE | 2020-08-13 09:35 | P.PNIM_ITS ---
Subjective Subjective Date of Service: 08/13/20 Interval History: f/u pneumonia, respiratory failure Awake and alert this morning. No complaints No overnight events Review of Systems Review of Systems: Yes all other systems are reviewed and are negative Constitutional Constitutional: Denies chills and Denies fever(s) Cardiovascular Cardiovascular: Denies chest pain Gastrointestinal Gastrointestinal: Denies abdominal pain Physical Exam Vital Signs: Vital Signs: Last Vital Signs Temp 97.7 F 08/13/20 08:00 Pulse 99 08/13/20 08:00 Resp 30 H 08/13/20 08:00 BP 130/79 08/13/20 08:00 Pulse Ox 98 08/13/20 08:00 Body Mass Index 18.9 Const: General: lethargic Nutritional Appearance: thin Orientation/consciousness: lethargic HENMT: Head: Yes normocephalic and Yes atraumatic Eyes: Sclerae: sclerae normal Chest: Chest palpation & inspection: normal inspection of the chest Resp: Other: b/l inspiratory rhonchi Effort & Inspection: no respiratory distress Cardio: Rate: regular rate Rhythm: regular rhythm GI: Palpation (GI): Soft to palpation and nontender Skin: General skin exam: no rashes or lesions noted Neuro: Cranial nerves: Yes CN's II-XII intact bilaterally and Yes Bilaterally intact EOM present Extrem: Other: left hemiplegia, left leg with clean, intact dressing General: Yes normal to inspection Objective Data Current Medications Generic Name Dose Route Start Last Admin Trade Name Freq PRN Reason Stop Dose Admin Al Hydroxide/Mg Hydroxide 15 ml 08/09/20 18:53 08/09/20 20:21 Magnesium Hydrox/Alum Hydrox 30 Ml Oral.Susp PO 15 ml Q6H PRN Administration GI UPSET Albuterol Sulfate 2.5 mg 08/11/20 11:51 Albuterol Sulfate (0.083%) 2.5 Mg/3 Ml Vial.Neb INHALE RQ4H PRN Shortness of Breath Albuterol/Ipratropium 3 ml 08/11/20 12:00 08/13/20 08:37 Albuterol/Iprat 2.5/0.5mg 3 Ml Ampul.Neb INHALE Not Given RQ4H WHILE AWAKE LEO Aspirin 81 mg 08/10/20 09:00 08/12/20 10:16 Aspirin Enteric Coated 81 Mg Tablet.Dr PO Not Given DAILY LEO Chlordiazepoxide HCl 5 mg 08/09/20 21:00 08/12/20 20:46 Chlordiazepoxide Hcl 5 Mg Capsule PO 5 mg BID LEO Administration Clobazam 5 mg 08/10/20 09:00 08/12/20 10:09 Clobazam 10 Mg Tablet PO 5 mg DAILY LEO Administration Docusate Sodium 100 mg 08/09/20 08:16 Docusate Sodium 100 Mg Capsule PO DAILY PRN Constipation Furosemide 40 mg 08/13/20 09:00 Furosemide 40 Mg/4 Ml Vial IVPUSH DAILY LEO Protocol Gabapentin 200 mg 08/09/20 21:00 08/12/20 10:08 Gabapentin 100 Mg Capsule PO 200 mg BID LEO Administration Doxycycline Hyclate 100 mg/ 250 mls @ 166.67 mls/hr 08/09/20 21:00 08/12/20 22:39 Sodium Chloride IV Infused Q12H LEO Infusion Piperacillin Sod/Tazobactam 100 mls @ 200 mls/hr 08/12/20 10:00 08/13/20 06:14 Sod 4.5 gm/ Sodium Chloride IV Infused Q6H [facility] Infusion Loratadine 10 mg 08/10/20 09:00 08/12/20 10:11 Loratadine 10 Mg Tablet PO 10 mg DAILY [facility] Administration Melatonin 6 mg 08/09/20 14:00 08/12/20 22:47 Melatonin 3 Mg Tablet PO 6 mg BEDTIME PRN Administration Insomnia Methylprednisolone Sodium Succinate 40 mg 08/12/20 08:45 08/13/20 01:32 Methylprednisolone Sod Succ 40 Mg/Ml Vial IVPUSH 40 mg Q8H LEO Administration Metoprolol Tartrate 50 mg 08/11/20 21:00 08/12/20 20:46 Metoprolol Tartrate 25 Mg Tablet PO 50 mg BID LEO Administration Protocol Multivitamins 1 tab 08/10/20 09:00 08/12/20 10:08 B-Complex With Vitamin C Tablet PO 1 tab DAILY [facility]O Administration Ondansetron HCl 4 mg 08/09/20 08:16 Ondansetron Hcl 4 Mg/2 Ml Vial IVPUSH Q8H PRN Nausea and Vomiting Oxybutynin Chloride 10 mg 08/10/20 09:00 08/12/20 10:07 Oxybutynin Chloride Er 5 Mg Tab.Er.24 PO 10 mg DAILY [facility] Administration Oxycodone HCl 2.5 mg 08/12/20 08:40 Oxycodone Hcl Immed Release 5 Mg Tablet PO TID PRN Moderate Pain (Scale Score 5-6) Pharmacy Consult 1 each 08/09/20 08:20 Consult Rx Perform Med Rec MISCELLANE ONCE PRN Consult order Sodium Chloride 3 ml 08/09/20 08:16 08/13/20 00:47 0.9 % Sodium Chloride Flush 3 Ml Syringe IVFLUSH Not Given QSHIFT [facility] Warfarin Sodium 5 mg 08/12/20 18:00 08/12/20 20:46 Warfarin Sodium 5 Mg Tablet PO 5 mg [email or web address] [facility] Administration Warfarin Sodium 2.5 mg 08/11/20 18:00 08/11/20 16:20 Warfarin Sodium 2.5 Mg Tablet PO 2.5 mg [email or web address] [facility] Administration Labs CBC & Chem 7: 08/13/20 06:30 08/13/20 06:30 Microbiology Microbiology Results: Microbiology 08/08/20 20:48 Blood - Venous Blood Culture - Preliminary No growth after 48 hours. 08/08/20 20:44 Blood - Venous Blood Culture - Preliminary No growth after 48 hours. Assessment and Plan (1) Acute respiratory failure with hypoxia: Status: Acute (2) Pneumonia: Status: Acute (3) Warfarin-induced coagulopathy: Status: Acute (4) Supratherapeutic INR: Status: Acute Assessment and Plan: This is a 65-year-old female with a history of bipolar disorder, OCD, CVA with left hemiplegia, HFrEF who presents to the hospital from [facility] with hypoxia. Acute resp. failure with hypoxia due to chronic lung issues + possibly super-imposed pneumonia still requiring oxygen, but improving with addition of IV steroids, ?pneumonitis/ fibrosis in setting of previous covid infection -seen by pulmonology, feels there is component of heart failure vs. lung fibr osis -continue supplemental o2 prn -continue breathing treatments -continue IV steroids -s/p IV lasix x2 days with no change in status, will d/c Pneumonia ?component of aspiration -Antibiotics day #5 zosyn/doxy -speech rec mechanically ground/altered, crushed pills and 1:1 feeds -aspiration precautions Sepsis r/t underlying pneumonia possible aspiration, antibiotics adjusted 08/12 repeat blood cultures pending, lactic acid wnl - no severe features thrombocytopenia is chronic and not related to sepsis Elevated trop Trop flat on admission. Repeated 08/12 due to complaints of chest pain, returned 108 repeat 67 EKG with LBBB -cardiology following -echo report pending -LDL 80, not on statin despite h/o cva h/o HFrEF echo from 09/21 with EF 35-40% not on diuretics at baseline. BNP elevated 1012, repeat CXR unchanged s/p lasix iv x 2 with no significant change in respiratory status -echo report pending -SCr tending up slightly, follow BMP Antiphospholipid syndrome, history of DVT INR 2.1 -Continue coumadin -Follow INR, CBC History of CVA, hemiplegia Will hold ASA due to worsening thrombocytopenia Not on statin Thrombocytopenia Chronic, stable -d/c ASA -follow CBC Normocytic anemia Chronic, at baseline -follow CBC Chronic pain frequently requesting pain medication pain medication on hold due to somnolence yesterday Chronic left leg wound, present on admission continue local wound care continue baseline meds Full Code DVT pptx Coumadin This case was discussed with Dr. Izaguirre
[2020-08-13] MEDS: Doxycycline Hyclate 100 MG in 0.9 % Sodium Chloride 250 ML 166.67 MG IV (09:42)
[2020-08-13] MEDS: Furosemide 40 MG/4 ML VIAL IVPUSH (09:43)
[2020-08-13] MEDS: chlordiazePOXIDE HCl 5 MG CAPSULE PO (09:44)
[2020-08-13] MEDS: 0.9 % Sodium Chloride Flush 3 ML SYRINGE IVFLUSH ×2 (09:46→17:10)
[2020-08-13] MEDS: cloBAZam 10 MG TABLET 5 MG PO (09:56)
[2020-08-13] MEDS: Metoprolol Tartrate 25 MG TABLET 50 MG PO ×2 (09:58→20:35)
[2020-08-13] MEDS: Loratadine 10 MG TABLET PO (09:58)
[2020-08-13] MEDS: oxyCODONE HCl Immed Release 5 MG TABLET 2.5 MG PO ×2 (11:30→18:52)
[2020-08-13] MEDS: Warfarin Sodium 2.5 MG TABLET PO (18:43)
[2020-08-13] MEDS: Albuterol/Iprat 2.5/0.5MG 3 ML AMPUL.NEB INHALE (19:51)
[2020-08-13] MEDS: Melatonin 3 MG TABLET 6 MG PO (20:35)
[2020-08-14] MEDS: Gabapentin 100 MG CAPSULE 200 MG PO (00:13)
[2020-08-14] MEDS: chlordiazePOXIDE HCl 5 MG CAPSULE PO (00:14)
[2020-08-14] MEDS: oxyCODONE HCl Immed Release 5 MG TABLET 2.5 MG PO ×2 (00:14→14:09)
[2020-08-14 03:19] VITALS: BP 155/78; PULSE 92; RESP 18; TEMP 36.9; O2SAT 85
--- NOTE | 2020-08-14 04:46 | PC.NURSE ---
PT'S IV FOUND TO NO LONGER BE PATENT AT 5PM ON 08/13. IV REMOVED AND GAUZE BANDAGE APPLIED. PT IS REFUSING A NEW IV AT THIS TIME. SHE IS AWARE THAT SHE NEEDS ONE FOR IV ABX AND IN CASE OF EMERGENCY. NURSING ENVIRONMENTAL HEALTH TECHNOLOGIST AWARE. WHEN THIS RN PULLED THE PATIENT'S LIBRIUM OUT OF THE PYXIS THE BLISTER PACK WAS SEALED WITH NO CAPSULE INSIDE. UPON ACCESSING THE CUBIE IN THE PYXIS AGAIN, ANOTHER BLISTER PACK WAS FOUND WITH 2 CAPSULES INSIDE. PHARMACY AWARE OF SITUATION AND CAME UP TO THE FLOOR TO ADDRESS THE SITUATION.
[2020-08-14] MEDS: traZODone HCL 50 MG TABLET PO (04:57)
[2020-08-14 06:00] VITALS: BMI 18.7
[2020-08-14 06:28] LABS: MANUAL DIFF FLAG NO
[2020-08-14 06:42] LABS: Basophils Percent Auto 0.3 % (0-2); Hematocrit 31.6 % (37-47); Imm Gran Abs Auto 0.04 X10*3/uL (0.00-0.03); Imm Gran Pct Auto 0.4 % (0.0-0.4); Lymphocytes Absolute Auto 1.5 X10*3/uL (1.2-4.9); Mean Corpuscular HGB Conc 31.6 g/dl (31.0-35.0); Mean Corpuscular Hemoglobin 29.1 pg (27.0-33.0); Mean Corpuscular Volume 91.9 fL (80-98); Mean Platelet Volume 11.8 fL (9.4-12.3); Monocytes Absolute Auto 0.7 X10*3/uL (0.1-1.2); Monocytes Percent Auto 7.5 % (2-11); Neutrophils Absolute Auto 7.5 X10*3/uL (2.0-8.3); Neutrophils Percent Auto 76.8 % (45-73); Red Blood Count 3.44 X10*6/uL (4.20-5.50); Red Cell Distribution Width 12.9 % (11.0-16.0); White Blood Count 9.7 X10*3/uL (4.8-10.8)
[2020-08-14 06:49] LABS: Platelet Count 77 X10*3/uL (160-400)
[2020-08-14 07:02] LABS: INTERNATIONAL NORM RATIO 3.1 (0.9-1.1); Prothrombin Time 37.6 SEC (10.8-13.0)
[2020-08-14 07:30] VITALS: BP 152/74; PULSE 91; RESP 20; TEMP 36.9; O2SAT 98
[2020-08-14 07:51] LABS: Anion Gap 16 (12-20); Blood Urea Nitrogen 34 mg/dL (9-16); Calcium 8.1 mg/dL (8.4-10.2); Carbon Dioxide 31 mmol/L (22-29); Chloride 97 mmol/L (96-108); Creatinine Clr Calc Pharmacy 40.5; Estimated Glomerular Filt Rate 50; Glucose Random 114 mg/dL (60-115); Potassium 2.9 mmol/L (3.3-5.1); Sodium 141 mmol/L (135-145)
[2020-08-14 11:00] VITALS: BP 143/73; PULSE 78; RESP 23; TEMP 36.6; O2SAT 98
--- NOTE | 2020-08-14 11:27 | P.DS_ITS ---
DS: Providers Provider Date of Service: 08/14/20 Date of admission: 08/08/20 23:45 Primary care physician: True Vasquez DO Consults: 08/11/20 11:54 Consult to Pulmonology Routine Consulting Provider: Jose Degroot Reason for consultation: pneumonia; dyspnea, hypoxia Has provider been notified: No 08/12/20 10:19 Consult to Cardiology Routine Consulting Provider: Karri Mendoza Reason for consultation: nstemi Has provider been notified: No DS: Diagnosis Discharge Diagnosis (1) Acute respiratory failure with hypoxia: Status: Acute (2) Pneumonia: Status: Acute (3) Warfarin-induced coagulopathy: Status: Acute (4) Supratherapeutic INR: Status: Acute (5) Thrombocytopenia: Status: Inactive (6) Elevated troponin: Status: Acute (7) Left bundle branch block: Status: Acute DS: Medications Discharge Medications Home Medications: Home Medications Medication Instructions Recorded Confirmed alum-mag hydroxide-simeth 15 ml PO Q6H PRN 08/09/20 08/09/20 [Feli-Lanta] ammonium lactate [Lac-Hydrin] 1 appl TOPICAL BID 08/09/20 08/09/20 aspirin 81 mg PO DAILY 08/09/20 08/09/20 betamethasone dipropionate 1 appl TOPICAL Q3D 08/09/20 08/09/20 bisacodyl 10 mg WV DAILY PRN 08/09/20 08/09/20 cetirizine 10 mg PO DAILY 08/09/20 08/09/20 chlordiazepoxide HCl 5 mg PO BID 08/09/20 08/09/20 clobazam 5 mg PO DAILY 08/09/20 08/09/20 ferrous sulfate 325 mg PO BID 08/09/20 08/09/20 gabapentin 200 mg PO BID 08/09/20 08/09/20 horse chestnut 300 mg PO DAILY 08/09/20 08/09/20 lactase [Lactaid] 3,000 unit PO QID PRN 08/09/20 08/09/20 melatonin 5 mg PO BEDTIME PRN 08/09/20 08/09/20 methylcellulose (with sugar) 1 tbsp PO DAILY PRN 08/09/20 08/09/20 [Citrucel (sucrose)] metoprolol tartrate 25 mg PO TID 08/09/20 08/09/20 mometasone 1 spray INTRANASAL Q12H PRN 08/09/20 08/09/20 multivitamin [Multivites] 1 tab PO DAILY 08/09/20 08/09/20 oxybutynin chloride 10 mg PO DAILY 08/09/20 08/09/20 oxycodone-acetaminophen 0.5 tab PO TID PRN 08/09/20 08/09/20 polyvinyl alcohol [Artificial 2 drp OPHTHALMIC (EYE) QID PRN 08/09/20 08/09/20 Tears (polyvin alc)] vitamin B complex 1 tab PO DAILY 08/09/20 08/09/20 warfarin 2.5 mg PO SUTUTHSA 08/09/20 08/09/20 warfarin 5 mg PO MOWEFR 08/09/20 08/09/20 DS: Summary Hospital Course Hospital Course: This is a 65-year-old female with past medical history of hemiplegia, CKD, HTN, PVD, antiphospholipid syndrome, history of DVT on anticoagulation, history of COVID last year who was sent from [facility] for sudden onset of shortness of breath. Patient of this times very anxious, refusing to give me much history except his focused on feeling short of breath, stating that she is having left- sided chest pain although refusing to give me more history about what the chest pain is about or characteristics of the chest pain, she is anxious, she is scared, and not really focus in on the exam. It appears that EMS was called due to shortness of breath. On arrival of EMS patient was found to be satting in the 70s. Patient was placed on oxygen and brought into the hospital. On arrival to the ED patient had vitals of a temp of 98.4?, heart rate of 84, respiratory rate of 18, blood pressure 123/68, satting 98% on 2 L of oxygen. She with desatted to the 80s on room air. On arrival are significant for WBC count of 10.3, PT of 72, INR of 6.0, AST of 32, alk-phos of 138, troponins Shiley of 68 increased to 70 on repeat, BNP of 362, COVID-19 negative, chest CT showed extensive chronic appearing changes with acute on chronic changes when compared to prior study. Acute infectious etiologies superimposed on chronic regions of bilateral scarring would be suspected. Hospital Course: This is a 65-year-old female with a history of bipolar disorder, OCD, CVA with left hemiplegia, HFrEF who presents to the hospital from [facility] with hypoxia. Acute resp. failure with hypoxia Imaging suggestive of chronic lung issues + possibly super-imposed pneumonia. She was admitted to medical/surgical floor for treatment of pneumonia. She was started on Doxycycline and Ceftriaxone. On 08/11 she spiked a temperature of 100.7. Her antibiotics were changed to cover for likely aspiration. Given persistent hypoxia, she was evaluated by pulmonology who felt she had a component of heart failure. My cardiology was consulted who did not feel that the patient was particularly fluid overloaded but diuresis was attempted to days no change in respiratory status. Steroids were added. She is still requiring oxygen, but improving somewhat with addition of steroids, ?pneumonitis/fibrosis in setting of previous covid 19 infection. She will be discharged back to [facility] with antibiotics, steroids and supplemental oxygen which can be weaned down as tolerated. Pneumonia ?component of aspiration on day 11/07 of antibiotics, will be discharged with Doxycycline/Augmentin -Evaluated by speech who rec mechanically ground/altered diet, crushed pills and 1:1 feeds -aspiration precautions Sepsis r/t underlying pneumonia No severe features. Blood cultures from 08/08 and 08/12 negative to date Elevated trop Trop flat on admission. Repeated 08/12 due to complaints of chest pain, returned 108 repeat 67 EKG with LBBB. ECHO from 08/12 Conclusions: - The left ventricular systolic function is mildly decreased. The visually estimated ejection fraction is between 40-45%. - There is paradoxical septal motion consistent with a left bundle branch block. - Diastolic function is indeterminate on the basis of available data. - The inferoseptal wall, the mid inferior, and apical septum segments are dyskinetic. - There is mild aortic valve stenosis. Seen by cardiology who recommends outpatient ischemic workup. Continue metoprolol, dose was changed from 25 TID to 50 BID. h/o HFrEF echo from 09/21 with EF 35-40% not on diuretics at baseline. BNP elevated 1012, repeat CXR unchanged s/p lasix iv x 2 days with no significant change in respiratory status echo report as above Antiphospholipid syndrome, history of DVT INR initially elevated at 5.9 on arrival. Coumadin held on admission, INR trended up to 7.7. No active bleeding was noted. Coumadin resumed on 08/11 INR on day of discharge 3.1 Dose of coumadin decreased on discharge to 3 mg daily. Recommend to repeat INR 08/15 and adjust dose of coumadin to keep INR between 2-3 History of CVA, hemiplegia ASA d/c due to severe thrombocytopenia. Not on statin at baseline Thrombocytopenia Platelets within normal range for patient, ida 44. -ASA d/c as patient is AC with coumadin with INR in theraputic range. Normocytic anemia Chronic, at baseline Chronic left leg wound, present on admission continue local wound care Time Spent with Patient Time attestation: Total time spent providing and/or coordinating discharge services: Discharge coordination time: Greater than 30 minutes Physical Exam Vital Signs: Vital Signs: Last Vital Signs Temp 98 F 08/14/20 11:00 Pulse 78 08/14/20 11:00 Resp 23 H 08/14/20 11:00 BP 143/73 H 08/14/20 11:00 Pulse Ox 98 08/14/20 11:00 Body Mass Index 18.7 Const: General: lethargic Nutritional Appearance: thin Orientation/consciousness: lethargic HENMT: Head: Yes normocephalic and Yes atraumatic Eyes: Sclerae: sclerae normal Chest: Chest palpation & inspection: normal inspection of the chest Resp: Other: b/l inspiratory rhonchi Effort & Inspection: no respiratory distress Cardio: Rate: regular rate Rhythm: regular rhythm GI: Palpation (GI): Soft to palpation and nontender Skin: General skin exam: no rashes or lesions noted Neuro: Cranial nerves: Yes CN's II-XII intact bilaterally and Yes Bilaterally intact EOM present Extrem: Other: left hemiplegia, left leg with clean, intact dressing General: Yes normal to inspection DS: Data Data Completed and Pending Labs on day of discharge: Laboratory Results - last 24 hr 08/14/20 08/14/20 08/14/20 05:55 05:55 05:55 WBC 9.7 RBC 3.44 L Hgb 10.0 L Hct 31.6 L MCV 91.9 MCH 29.1 MCHC 31.6 RDW 12.9 Plt Count 77 L D MPV 11.8 Immature Gran % (Auto) 0.4 Neut % (Auto) 76.8 H Lymph % (Auto) 15.0 L Alger % (Auto) 7.5 Eos % (Auto) 0.0 Baso % (Auto) 0.3 Lymph # (Auto) 1.5 Alger # (Auto) 0.7 Eos # (Auto) 0.0 Baso # (Auto) 0.0 Abs Immat Gran (auto) 0.04 H Absolute Neuts (auto) 7.5 Absolute Nucleated RBC 0.000 Nucleated RBC % (auto) 0.0 PT 37.6 H D INR 3.1 H Sodium 141 Potassium 2.9 L Chloride 97 Carbon Dioxide 31 H Anion Gap 16 BUN 34 H Creatinine 1.11 Estim Creat Clear Calc 40.5 Estimated GFR 50 Random Glucose 114 D Calcium 8.1 L Preliminary micro results at discharge 08/12/20 07:48 Blood Culture - Preliminary Blood - Venous No growth after 48 hours. 08/12/20 08:01 Blood Culture - Preliminary Blood - Venous No growth after 48 hours. Discharge Plan Discharge Patient Disposition: [facility] Referrals: [facility] [Outside] True Vasquez DO [Primary Care Provider] - Discharge Medications: New metoprolol tartrate 25 mg Tablet 50 mg PO BID 30 Days Qty: 120 RF: 0 warfarin 3 mg tablet 3 mg PO DAILY 30 Days Qty: 30 RF: 0 doxycycline hyclate 100 mg capsule 100 mg PO BID 2 Days Qty: 4 RF: 0 amoxicillin-pot clavulanate [Augmentin] 875-125 mg tablet 1 tab PO Q12H 2 Days Qty: 4 RF: 0 prednisone 20 mg tablet 20 mg PO DAILY 5 Days Qty: 5 RF: 0 prednisone 10 mg tablet 10 mg PO DAILY 5 Days Qty: 5 RF: 0 Continued multivitamin Tablet 1 tab PO DAILY RF: 0 cetirizine 10 mg Tablet 10 mg PO DAILY RF: 0 oxybutynin chloride 10 mg Tablet Extended Release 24hr 10 mg PO DAILY RF: 0 polyvinyl alcohol [Artificial Tears (polyvin alc)] 1.4 % Drops 2 drp OPHTHALMIC (EYE) QID PRN (Reason: Dry Eyes) RF: 0 oxycodone-acetaminophen 5-325 mg Tablet 0.5 tab PO TID PRN (Reason: Moderate Pain (Scale Score 5-6)) RF: 0 chlordiazepoxide HCl 5 mg Capsule 5 mg PO BID RF: 0 bisacodyl 10 mg Suppository 10 mg WV DAILY PRN (Reason: Constipation) RF: 0 lactase [Lactaid] 3,000 unit Tablet 3,000 unit PO QID PRN (Reason: Lactose Intolerance) RF: 0 betamethasone dipropionate 0.05 % Cream 1 appl TOPICAL Q3D RF: 0 mometasone 50 mcg/actuation Corb[place],Non-Aerosol 1 spray INTRANASAL Q12H PRN (Reason: Congestion) RF: 0 vitamin B complex Tablet 1 tab PO DAILY RF: 0 ammonium lactate 12 % Cream 1 appl TOPICAL BID RF: 0 gabapentin 100 mg Capsule 200 mg PO BID RF: 0 alum-mag hydroxide-simeth [Feli-Lanta] 200-200-20 mg/5 mL Suspension 15 ml PO Q6H PRN (Reason: GI UPSET) RF: 0 ferrous sulfate 325 mg (65 mg iron) Tablet,Delayed Release (Dr/Ec) 325 mg PO BID RF: 0 horse chestnut 300 mg Capsule 300 mg PO DAILY RF: 0 Citrucel (sucrose) Powder 1 tbsp PO DAILY PRN (Reason: Constipation) RF: 0 melatonin 5 mg Tablet 5 mg PO BEDTIME PRN (Reason: Insomnia) RF: 0 clobazam 10 mg Tablet 5 mg PO DAILY RF: 0 Discontinued warfarin 2.5 mg Tablet 2.5 mg PO SUTUTHSA RF: 0 aspirin 81 mg Tablet,Delayed Release (Dr/Ec) 81 mg PO DAILY RF: 0 warfarin 5 mg Tablet 5 mg PO MOWEFR RF: 0 metoprolol tartrate 25 mg Tablet 25 mg PO TID RF: 0 Discharge Orders: Discharge Order (Routine); Ordered 08/14/20 Ordered By: Michaela Tejeda Activity on Discharge: As tolerated Stand Alone Forms: Patient Portal Discharge page Care Plan Goals: See below Health Concerns: See below Plan of Treatment: Hypoxia r/t below Chronic lung disease s/p covid 19 infection -Prednisone 20 mg x 5 days, then 10 mg x 5 days Pneumonia, likely with component of aspiration -Complete course of antibiotics -supplemental O2 at 2L/min, wean as tolerated -aspiration precautions, 1:1 feeds, mechanically altered diet Elevated INR -Dose of coumadin was decreased to 3mg daily, INR should be checked 08/15. dose can be adjusted accordingly to maintain INR between 2-3. New LBBB -FU with cardiology for outpatient ischemic workup -dose of metorprolol changed from 25 TID to 50 BID Thrombocytopenia -ASA d/c due to severe thrombocytopenia.
--- NOTE | 2020-08-14 12:14 | MHC.CM.PN ---
Pt discharging back to [facility] [place] today at 1400 hours via BLS. Pts daughter/HCP, Sofía notified via t/c ([phone])
[2020-08-14] MEDS: cloBAZam 10 MG TABLET 5 MG PO (14:09)
== END 2020-08-14 14:46 | disposition skilled nursing facility (03) | DRG 139 ==
LOC: HO.ED 08-09 01:17 → HO.EDOVER 08-09 07:20 → HO.S3 08-09 07:44 → HO.IMC 08-12 13:16
PROVIDERS: Family Medicine; Internal Medicine; Physician Assistant Medical; Admitting Provider Internal Medicine; Emergency Provider Internal Medicine; PCP Hospitalist; Visit Provider Hospitalist
DX: J18.9 Pneumonia, unspecified organism (principal); J96.01 Acute respiratory failure with hypoxia; A41.9 Sepsis, unspecified organism; D68.61 Antiphospholipid syndrome; D69.6 Thrombocytopenia, unspecified; I13.0 Hypertensive heart and chronic kidney disease with heart failure and stage 1 through stage 4 chronic kidney disease, or unspecified chronic kidney disease; I50.22 Chronic systolic (congestive) heart failure; I69.954 Hemiplegia and hemiparesis following unspecified cerebrovascular disease affecting left non-dominant side; Z20.822 Contact with and (suspected) exposure to COVID-19; Z86.718 Personal history of other venous thrombosis and embolism; F31.9 Bipolar disorder, unspecified; D63.1 Anemia in chronic kidney disease; N18.9 Chronic kidney disease, unspecified; I44.7 Left bundle-branch block, unspecified; Z86.16 Personal history of COVID-19; Z79.01 Long term (current) use of anticoagulants; Z88.5 Allergy status to narcotic agent; Z88.6 Allergy status to analgesic agent; Z79.899 Other long term (current) drug therapy
CPT/HCPCS: 36415; 36600; 71045; 71250; 80048; 80061; 80076; 82947; 83605; 83880; 84484; 85025; 85610; 87040; 87449; 87635; 87899; 92610; 93005; 93306; 96365; 96375; 99285; J0696; J1940; J2270; J2405; J2543; J2920; J3430

== ENCOUNTER → 2020-09-05 10:00 | Outpatient (BNVA) | payer MEDICAID, SELFPAY | PROVIDERS: PCP Hospitalist; Visit Provider Nurse Practitioner Family | DX: I42.9 Cardiomyopathy, unspecified (principal); I44.7 Left bundle-branch block, unspecified; R93.1 Abnormal findings on diagnostic imaging of heart and coronary circulation | CPT/HCPCS: 99212 ==

== ENCOUNTER → 2020-11-07 08:00 | Outpatient (REF) | payer MEDICAID, SELFPAY ==
--- NOTE | ~2020-11-07 | NM_ITS ---
Myocardial perfusion study Indication: Abnormal EKG with left bundle branch block to evaluate for myocardial ischemia Technique: The patient was brought in for a Lexiscan perfusion study on 11/07/2020. Patient performed low-level exercise and was injected 0.4 mg of Lexiscan intravenously. Within a minute of injection, 25 mCi of sestamibi was given intravenously. Images were obtained using the SPECT gamma camera interlaced with the gating device. Images were obtained in supine position. Resting perfusion study was performed on 11/08/2020. Patient was administered 25 mCi of sestamibi intravenously at rest. Images were then obtained in supine position. Images obtained with and without CT attenuation. Total DLP 102 mGy-cm. Images were processed with the software and compared side to side in short axis, horizontal long axis and vertical long axis views. Findings: The stress perfusion study showed nonattenuated images show moderately large area of absent uptake in the distal and mid inferolateral and distal lateral wall of the LV myocardium. Is also absent uptake in the basal inferior and severely reduced uptake in the mid inferior and inferoapical wall of the LV myocardium. Attenuation corrected images show severely reduced uptake in the inferolateral and absent uptake in the inferoapical wall of the LV myocardium.. The gated study shows reduced LV systolic function with calculated LVEF of 43%. LV cavity is mildly to moderately dilated size. The gated study shows reduced inferolateral and inferoapical wall thickening and contraction of segments. Resting study shows no significant change in perfusion pattern compared to worse than stress study. Gating at rest reveals inferior and inferolateral wall motion with ejection fraction at 37%. The findings are consistent with large area of transmural infarct of the distal and mid inferolateral as well as distal lateral wall with nontransmural infarct of the basal inferolateral and basal lateral wall of the LV myocardium. There is also nontransmural infarct of the mid and apical portion of the inferior wall. There is minimal reversibility amparo-infarct zone.. NM/NM tru perf SPECT rest & str Impression: 1. Myocardial perfusion imaging study shows large area of myocardial infarction in the inferolateral as well as apical lateral wall with amparo-infarct ischemia 2. Gated LVEF is 43% with stress and 37% with rest 3. Transient ischemic dilatation not present but LV cavity is dilated EKG is nondiagnostic for ischemia
--- NOTE | 2020-11-07 08:12 | CA_ITS ---
Acquisition Time: 2020-11-07 08:35:44 Total Exercise Time: 00:02:00 Test Indications: Abnormal Treadmill Test Medications: SEE CHART Protocol: LEXISCAN Max HR: 111 BPM 70% of Pred: 157 BPM Max BP: 110/060 mmHG Max Work Load: 1.0 METS Pharmacological stress test with Lexiscan injection, while sitting and squeezing ball with right hand, without anginal symptoms, without arrythmia, with normotensive response to injection, with nondiagnostic EKG for ischemia. In recovery her pulse rate was elevated into low 100s and she was treated with Amionphylline 75mg IVP to reverse Lexiscan with reduction in heart rate back to baseline. Nuclear images pending. Test reviewed with Dr Márquez Referred By: True Vasquez Overread By: GOOD MCCLENDON
== END ==
LOC: HO.CARD 08:00
PROVIDERS: Visit Provider Hospitalist
DX: I44.7 Left bundle-branch block, unspecified (principal); R93.1 Abnormal findings on diagnostic imaging of heart and coronary circulation
CPT/HCPCS: 78452; 93016; 93017; 93018; A9500; J0280; J2785

== ENCOUNTER 2020-11-27 13:36 | Emergency (ER) | payer MEDICAID, SELFPAY ==
--- NOTE | ~2020-11-27 | CT_ITS ---
EXAMINATION: CT HEAD WITHOUT CONTRAST CLINICAL INFORMATION: Elevated PTH and INR. Now with headache COMPARISON: CT brain 10/18/2018 TECHNIQUE: Contiguous axial imaging was performed from the skull base to vertex without intravenous administration of contrast. This CT examination was performed using dose optimization techniques as appropriate, variously including the following: *Automated exposure control *Adjustment of mA and/or kV according to patient size (this includes techniques or standardized protocols for targeted exams where dose is matched to indication/reason for exam; i.e. extremities or head) *Use of iterative reconstruction technique DLP: 632 mGy-cm FINDINGS: There is acute right subtentorial bleed projecting into the posterior fossa along the tentorium best visualized on coronal projection 130/7. Also a posterior bleed along the falx is suspected It is new compared to 2019 exam. There is a focal hypodensity seen in the right deep white matter frontal lobe on axial image 12/3, similar to previous study from 2019 likely old infarct or small vessel ischemic changes. No abnormal mass effect or midline shift is seen. Contreras to white matter differentiation is well preserved. No extra-axial fluid collections are identified. The lateral ventricles are asymmetrical but enlarged. Mild prominence of cortical sulci seen. There is mild periventricular hypodensity suggestive of chronic small vessel ischemia. The osseous structures and soft tissues are normal. The mastoid air cells and visualized portions of the paranasal sinuses are well aerated. CT/CT head/brain wo con IMPRESSION: Acute right subtentorial and posterior falx subdural bleed. There is no mass effect. Cerebral volume loss with chronic small vessel microangiopathy. Enlarged lateral ventricles likely from cerebral volume loss. There is deep right parietal lobe hypodensity likely old infarct, stable from 2019 exam. Results were called to Carly. Morales by phone in ED at 2:54 PM
--- NOTE | ~2020-11-27 | XR_ITS ---
EXAMINATION: XR CHEST CLINICAL INFORMATION: Brain bleed. COMPARISON: Chest 08/12/2020 TECHNIQUE: Frontal view of the chest was obtained. FINDINGS: The lungs are hypoexpanded with bilateral chronic nodular interstitial thickening similar to previous study. Mild haziness in both lung bases likely atelectasis or effusion. Heart size and pulmonary vascularity is normal. No gross bony abnormality. There is old healed left humeral neck fracture. XR/XR chest 1V IMPRESSION: Hypoexpanded lungs with chronic reticular interstitial changes in both lungs. There is haziness in both lung bases likely chronic scarring or atelectasis.
[2020-11-27 13:49] VITALS: BP 138/59; BP 160/58; PULSE 66; RESP 16; TEMP 37.3; O2SAT 95; O2SAT 97; BMI 17.4
[2020-11-27] MEDS: oxyCODONE HCl Immed Release 5 MG TABLET PO (14:22)
--- NOTE | 2020-11-27 14:47 | ED.HA ---
HPI - Headache General Chief Complaint: Headache Stated Complaint: headache Time Seen by Provider: 11/27/20 13:43 Source: patient and EMS Mode of arrival: EMS Limitations: no limitations History of Present Illness HPI Narrative: 65-year-old female who is currently residing at [facility] with a past medical history of a CVA with left hemiparesis currently on Coumadin, left bundle-branch block, hypertension, DVT, PVD, thrombocytopenia, chronic anemia, antiphospholipid syndrome, obsessive compulsive disorder, glaucoma and migraine headaches presenting to the ED with complaints of acute on chronic Migraine headache since Saturday worse today. Reports associated noise sensitivity. She was given Percocet approximately 10:00 this morning and no symptomatic relief. Her Coumadin level was held since Saturday for PT/INR of 65.8/5.4 on 11/25/2020. Therefore she is requesting a CT scan of her brain to evaluate for possible blood clot or hemorrhage per patient. MD elicited complaint: headache and migraine Pertinent past history: migraines, hypertension and coagulopathy Onset (ago): day(s) ( 6 days) Onset description: gradually Location: diffuse Quality & Timing: constant and similar to previous headaches Exacerbating factors: light Relieving factors: nothing Associated symptoms: other ( she reports she cannot focus) Treatments prior to arrival: other ( Percocet at 10:00 prior to arrival) Related Data Home Medications Medication Instructions Recorded Confirmed Citrucel (sucrose) 1 tbsp PO DAILY PRN 08/09/20 09/05/20 alum-mag hydroxide-simeth 15 ml PO Q6H PRN 08/09/20 09/05/20 [Feli-Lanta] ammonium lactate 1 appl TOPICAL BID 08/09/20 09/05/20 betamethasone dipropionate 1 appl TOPICAL Q3D 08/09/20 09/05/20 bisacodyl 10 mg SD DAILY PRN 08/09/20 09/05/20 cetirizine 10 mg PO DAILY 08/09/20 08/09/20 chlordiazepoxide HCl 5 mg PO BID 08/09/20 09/05/20 clobazam 5 mg PO DAILY 08/09/20 09/05/20 ferrous sulfate 325 mg PO BID 08/09/20 09/05/20 gabapentin 200 mg PO BID 08/09/20 09/05/20 horse chestnut 300 mg PO DAILY 08/09/20 09/05/20 lactase [Lactaid] 3,000 unit PO QID PRN 08/09/20 09/05/20 melatonin 5 mg PO BEDTIME PRN 08/09/20 09/05/20 mometasone 1 spray INTRANASAL Q12H PRN 08/09/20 09/05/20 multivitamin 1 tab PO DAILY 08/09/20 09/05/20 oxybutynin chloride 10 mg PO DAILY 08/09/20 09/05/20 oxycodone-acetaminophen 0.5 tab PO TID PRN 08/09/20 09/05/20 polyvinyl alcohol [Artificial 2 drp OPHTHALMIC (EYE) QID PRN 08/09/20 09/05/20 Tears (polyvin alc)] vitamin B complex 1 tab PO DAILY 08/09/20 09/05/20 lisinopril 5 mg tablet 5 mg PO DAILY 09/05/20 09/05/20 Previous Rx's Medication Instructions Recorded metoprolol tartrate 50 mg PO BID 30 Days #120 tab 08/14/20 warfarin 3 mg PO DAILY 30 Days #30 tab 08/14/20 Allergies Allergy/AdvReac Type Severity Reaction Status Date / Time hydrocodone [Vicodin] Allergy Unknown vomiting Verified 09/05/20 10:07 lactose [LACTOSE] Allergy Unknown UNKNOWN Verified 09/05/20 10:07 lamotrigine [From LAMICTAL] Allergy Unknown UNKNOWN Verified 09/05/20 10:07 NSAIDS (Non-Steroidal AdvReac Mild KIDNEY Verified 09/05/20 10:07 Anti-Inflamma DISEASE= [NSAIDS (NON-STEROIDAL ANTI-INFLAMMA] dairy products Allergy Unknown diarrhea Uncoded 09/05/20 10:07 Review of Systems Review of Systems: Constitutional : No changes in activity, No lethargy, No recent prior head injury, No agitation, No increased fussiness ENT/Mouth : No Ear Pain, No Nasal discharge/drainage Eyes: No Eye Pain, No Swelling, No Redness, No Foreign Body, No Vision Changes Cardiovascular : No Chest Pain, No SOB Respiratory : No Cough Gastrointestinal : No Nausea, No Vomiting, No abdominal Pain Genitourinary : No Dysuria, No Urinary Frequency, No Urinary Incontinence, No Urgency, No Flank Pain Musculoskeletal : No joint pain, No neck stiffness, No back pain/injury Skin : No lacerations Neuro : No unsteady gait, No Paresthesias, No Loss of Consciousness, No altered mental status, No dizziness, + Headache Denies past medical history of HIV, recent trauma, coagulopathy, recent spinal/ epidural procedure, new medication, URI symptoms, close contacts with similar symptoms, tick bite, or known CO2 exposure. Yes all other systems are reviewed and are negative PMFSH Past Medical History Attestation statement: The following information was validated with the patient. Medical History Abnormal CT scan, chest Abnormal echocardiogram Acute respiratory failure with hypoxia Anticoagulated on Coumadin Antiphospholipid syndrome Cardiomyopathy Cerebrovascular accident (CVA) with left hemiparesis Chronic anemia Depression DVT (deep venous thrombosis) Glaucoma Hypertension Obsessive compulsive disorder Peripheral vascular disease Respiratory failure Thrombocytopenia Surgical History No pertinent past surgical history Family History Family History Father Colon cancer Mother Alzheimer's dementia Social History Social History Household Members: None Housing: Alf Do you presently have visiting nurse or other home services: No Second Hand Smoke Exposure: No Advance Directives: No Advance Directives Information Provided: No Patient : No service: No Current occupational status: disabled Physical Exam Vital Signs: Vital Signs: Last Vital Signs Temp 99.0 F 11/27/20 15:29 Pulse 64 11/27/20 15:29 Resp 20 11/27/20 15:29 BP 143/76 H 11/27/20 15:29 Pulse Ox 96 11/27/20 15:29 Body Mass Index 17.4 Vital signs have been reviewed as normal and appeared to be correct. Blood pressure normal. Heart rate normal. Respiration rate normal. Temperature normal. Oxygen saturation normal. Appearance: Alert. Oriented X3. No acute distress. Head: Normal external exam. Normocephalic. Atraumatic. Able to rotate head bilaterally. Eyes: PERRLA. EOMI. No nystagmus noted. Conjunctiva and sclera normal. Eyelids normal. Corneal reflex normal. ENT: EAC normal. TM's Normal. Hearing normal. Pharynx normal. Uvula midline. tongue midline. Moist mucous membranes. No trismus noted. No drooling noted. No muffled voice noted. Neck: Normal inspection. Neck supple. FROM. No adenopathy. Thyroid Normal. No meningeal signs. No neck mass noted. CVS: Normal heart rate and rhythm. Heart sound normal. No murmurs noted. Pulses normal throughout. Respiratory: No respiratory distress. Painless inspiration. Breath sounds normal. No wheezes/rales/rhonchi noted. Chest nontender. No accessory muscle usage noted or decreased air movement noted. Back: Full range of motion noted. Skin: Skin warm and dry. Normal skin color. Normal skin turgor. No rashes/lesions/lacerations noted. Extremities: Extremities exhibit normal range of motion. Extremities nontender. Able to shrug shoulders bilaterally and keep up against resistance. Neuro: Oriented X 3. patient has a baseline left sided hemiparesis weakness. Otherwise no new weakness to right side. No sensory weakness to right side.No motor deficit. No sensory deficit. Reflexes normal. Moving all extremities. No focal motor deficits. Cranial nerves II-XI intact bilaterally. Facial strength normal. Normal cognition. Speech normal. No pronator drift to right arm. No tremor noted. No fasciculations noted. Muscle tone normal to right side. No asterixis noted. Hand drop from overhead-Mrs. face. No rigidity noted. NIHSS score 0. Course Course Course Narrative: 14pm - 65-year-old female with a past medical history of a CVA with left hemiparesis, left bundle-branch block, hypertension, DVT currently on Coumadin, PVD, thrombocytopenia, chronic anemia, antiphospholipid syndrome, obsessive compulsive disorder, glaucoma and migraine headaches presenting to the ED with complaints of acute on chronic Migraine headache since Saturday worse today. Reports associated noise sensitivity. She was given Percocet approximately 10:00 this morning and no symptomatic relief. Her Coumadin level was held since Saturday for PT/INR of 65.8/5.4 on 11/25/2020. Therefore she is requesting a CT scan of her brain to evaluate for possible blood clot or hemorrhage per patient. - On Exam patient is alert and oriented. Not in any acute distress. Patient has left-sided hemiparesis no new acute focal weakness noted. Patient reports she is at baseline for her weakness. Patient mildly hypotensive 138/59 otherwise all other vitals are within normal limits. Lungs CTA. CV RRR. Abdomen is soft nontender. No lower extremity edema is noted. Plan: Labs, CT scan of brain. Provide 5 mg of oxycodone and re-evaluate. Reevaluation(s) Reevaluation #1: - I received a call from the radiologist who reported Acute right subtentorial and posterior falx subdural bleed. There is no mass effect. Cerebral volume loss with chronic small vessel microangiopathy. Enlarged lateral ventricles likely from cerebral volume loss. There is deep right parietal lobe hypodensity likely old infarct, stable from 2019 exam. - labs are pending at this time. Will contact [facility] for possible transfer at this time. Patient understands agrees with this plan. Time: 14:54 Reevaluation #2: - I consulted with [facility] neurosurgery Ebonie Mccabe PA-C and Dr. Bennett and they reviewed the images and they reported that they do not believe that the patient needs to be transferred and there is no intervention at this time with the exception of holding the patient's Coumadin for another 2 weeks. - Therefore consulted with our neurologist Dr. Burgos and he reported that if the patient's neuro exam is at baseline which it is then the patient can be safe to be discharged back to [facility] and to return if any new or worsening symptoms. - Therefore I consulted with Dr. Vasquez the PCP from [facility] and he reported that he will accept the patient back in if her mental status or neuro exam changes he will send her back to the emergency department for further evaluation treatment. Patient was updated and she understands agrees with this plan. Time: 15:52 Reevaluation #3: - all labs returned at this time and patient with white blood cell count at 4000 which is similar when compared to prior. Mild baseline anemia. Platelet count 125 which is improved when compared to prior. PT INR is 18.6/1.6. Complete metabolic panel within normal limits no acute processes are noted. - therefore will DC home back to [facility]. Time: 16:16 [facility] - Headache Medical Records Attestation: I reviewed the patient's medical records. Lab Data Attestation: I reviewed the patient's lab results. Result diagrams: 11/27/20 15:07 11/27/20 15:07 Labs: Lab Results 11/27/20 11/27/20 11/27/20 Range/Units 15:07 15:07 15:07 WBC 4.1 L (4.8-10.8) X10*3/uL RBC 3.55 L (4.20-5.50) X10*6/uL Hgb 10.8 L (12.0-16.0) g/dl Hct 32.9 L (37-47) % MCV 92.7 (80-98) fL MCH 30.4 (27.0-33.0) pg MCHC 32.8 (31.0-35.0) g/dl RDW 12.0 (11.0-16.0) % Plt Count 125 L D (160-400) X10*3/uL MPV 9.5 (9.4-12.3) fL Immature Gran % (Auto) 0.2 (0.0-0.4) % Neut % (Auto) 67.3 (45-73) % Lymph % (Auto) 25.5 (20-40) % Bradley % (Auto) 6.8 (2-11) % Eos % (Auto) 0.0 (0-4) % Baso % (Auto) 0.2 (0-2) % Lymph # (Auto) 1.1 L (1.2-4.9) X10*3/uL Bradley # (Auto) 0.3 (0.1-1.2) X10*3/uL Eos # (Auto) 0.0 (0.0-0.4) X10*3/uL Baso # (Auto) 0.0 (0.0-0.2) X10*3/uL Abs Immat Gran (auto) 0.01 (0.00-0.03) X10*3/uL Absolute Neuts (auto) 2.8 (2.0-8.3) X10*3/uL Absolute Nucleated RBC 0.000 (0.0-0.012) X10*3/uL Nucleated RBC % (auto) 0.0 (0.0-0.2) /100WBC ESR 92 H (0-20) MM/HR Hold Purple Top SEE NOTE PT (10.8-13.0) SEC INR (0.9-1.1) Sodium (135-145) mmol/L Potassium (3.3-5.1) mmol/L Chloride (96-108) mmol/L Carbon Dioxide (22-29) mmol/L Anion Gap (12-20) BUN (9-16) mg/dL Creatinine (0.5-1.4) mg/dL Estim Creat Clear Calc Estimated GFR Random Glucose (60-115) mg/dL Calcium (8.4-10.2) mg/dL Magnesium (1.6-2.6) mg/dL Total Bilirubin (0.0-1.0) mg/dL AST (5-31) U/L ALT (0-31) U/L Alkaline Phosphatase (39-117) U/L C-Reactive Protein (< or = 0.50) mg/dL Total Protein (6.5-8.0) g/dL Albumin (3.5-5.0) g/dL COVID-19 (FREDDY) (Negative) COVID-19 Clin Com 11/27/20 11/27/20 11/27/20 Range/Units 15:07 15:07 15:31 WBC (4.8-10.8) X10*3/uL RBC (4.20-5.50) X10*6/uL Hgb (12.0-16.0) g/dl Hct (37-47) % MCV (80-98) fL MCH (27.0-33.0) pg MCHC (31.0-35.0) g/dl RDW (11.0-16.0) % Plt Count (160-400) X10*3/uL MPV (9.4-12.3) fL Immature Gran % (Auto) (0.0-0.4) % Neut % (Auto) (45-73) % Lymph % (Auto) (20-40) % Bradley % (Auto) (2-11) % Eos % (Auto) (0-4) % Baso % (Auto) (0-2) % Lymph # (Auto) (1.2-4.9) X10*3/uL Bradley # (Auto) (0.1-1.2) X10*3/uL Eos # (Auto) (0.0-0.4) X10*3/uL Baso # (Auto) (0.0-0.2) X10*3/uL Abs Immat Gran (auto) (0.00-0.03) X10*3/uL Absolute Neuts (auto) (2.0-8.3) X10*3/uL Absolute Nucleated RBC (0.0-0.012) X10*3/uL Nucleated RBC % (auto) (0.0-0.2) /100WBC ESR (0-20) MM/HR Hold Purple Top PT 18.6 H D (10.8-13.0) SEC INR 1.6 H (0.9-1.1) Sodium 139 (135-145) mmol/L Potassium 4.6 D (3.3-5.1) mmol/L Chloride 103 (96-108) mmol/L Carbon Dioxide 28 (22-29) mmol/L Anion Gap 13 (12-20) BUN 23 H (9-16) mg/dL Creatinine 1.17 (0.5-1.4) mg/dL Estim Creat Clear Calc 38.0 Estimated GFR 47 Random Glucose 88 (60-115) mg/dL Calcium 9.1 D (8.4-10.2) mg/dL Magnesium 2.1 (1.6-2.6) mg/dL Total Bilirubin 0.5 (0.0-1.0) mg/dL AST 23 (5-31) U/L ALT 14 (0-31) U/L Alkaline Phosphatase 124 H (39-117) U/L C-Reactive Protein 1.15 H (< or = 0.50) mg/dL Total Protein 6.6 (6.5-8.0) g/dL Albumin 3.6 (3.5-5.0) g/dL COVID-19 (FREDDY) Negative (Negative) COVID-19 Clin Com See Note Imaging Data CT scan of brain without contrast: Attestation: I personally reviewed and interpreted this imaging study as follows: Radiologist's impression: FINDINGS: There is acute right subtentorial bleed projecting into the posterior fossa along the tentorium best visualized on coronal projection 130/7. Also a posterior bleed along the falx is suspected It is new compared to 2019 exam. There is a focal hypodensity seen in the right deep white matter frontal lobe on axial image 12/3, similar to previous study from 2019 likely old infarct or small vessel ischemic changes. No abnormal mass effect or midline shift is seen. Contreras to white matter differentiation is well preserved. No extra-axial fluid collections are identified. The lateral ventricles are asymmetrical but enlarged. Mild prominence of cortical sulci seen. There is mild periventricular hypodensity suggestive of chronic small vessel ischemia. The osseous structures and soft tissues are normal. The mastoid air cells and visualized portions of the paranasal sinuses are well aerated. CT/CT head/brain wo con IMPRESSION: Acute right subtentorial and posterior falx subdural bleed. There is no mass effect. Cerebral volume loss with chronic small vessel microangiopathy. Enlarged lateral ventricles likely from cerebral volume loss. There is deep right parietal lobe hypodensity likely old infarct, stable from 2019 exam. Results were called to Carly. Morales by phone in ED at 2:54 PM ECG Data Attestation: I personally reviewed and interpreted this ECG as follows: ECG interpretation date: 11/27/20 ECG interpretation time: 15:23 Interpretation: Sinus bradycardia ventricular rate of 59 with a left axis deviation and left bundle-branch block no acute ischemic change are noted. Similar when compared to prior EKG 08/12/2020 Critical Care Time Critical Care Time Critical Care Time: Yes Total Critical Care Time: 60 Attestation: I personally attest to this time spent taking care of the patient Discharge Plan Discharge Clinical Impression: Subdural bleeding Patient Disposition: Home, Self-Care Prescriptions: No Action multivitamin Tablet 1 tab PO DAILY RF: 0 cetirizine 10 mg Tablet 10 mg PO DAILY RF: 0 oxybutynin chloride 10 mg Tablet Extended Release 24hr 10 mg PO DAILY RF: 0 polyvinyl alcohol [Artificial Tears (polyvin alc)] 1.4 % Drops 2 drp OPHTHALMIC (EYE) QID PRN (Reason: Dry Eyes) RF: 0 oxycodone-acetaminophen 5-325 mg Tablet 0.5 tab PO TID PRN (Reason: Moderate Pain (Scale Score 5-6)) RF: 0 chlordiazepoxide HCl 5 mg Capsule 5 mg PO BID RF: 0 bisacodyl 10 mg Suppository 10 mg SD DAILY PRN (Reason: Constipation) RF: 0 lactase [Lactaid] 3,000 unit Tablet 3,000 unit PO QID PRN (Reason: Lactose Intolerance) RF: 0 betamethasone dipropionate 0.05 % Cream 1 appl TOPICAL Q3D RF: 0 mometasone 50 mcg/actuation [place],Non-Aerosol 1 spray INTRANASAL Q12H PRN (Reason: Congestion) RF: 0 vitamin B complex Tablet 1 tab PO DAILY RF: 0 ammonium lactate 12 % Cream 1 appl TOPICAL BID RF: 0 gabapentin 100 mg Capsule 200 mg PO BID RF: 0 alum-mag hydroxide-simeth [Feli-Lanta] 200-200-20 mg/5 mL Suspension 15 ml PO Q6H PRN (Reason: GI UPSET) RF: 0 ferrous sulfate 325 mg (65 mg iron) Tablet,Delayed Release (Dr/Ec) 325 mg PO BID RF: 0 horse chestnut 300 mg Capsule 300 mg PO DAILY RF: 0 Citrucel (sucrose) Powder 1 tbsp PO DAILY PRN (Reason: Constipation) RF: 0 melatonin 5 mg Tablet 5 mg PO BEDTIME PRN (Reason: Insomnia) RF: 0 clobazam 10 mg Tablet 5 mg PO DAILY RF: 0 metoprolol tartrate 25 mg Tablet 50 mg PO BID 30 Days Qty: 120 RF: 0 warfarin 3 mg tablet 3 mg PO DAILY 30 Days Qty: 30 RF: 0 lisinopril 5 mg tablet 5 mg PO DAILY RF: 0 Referrals: True Vasquez DO [Primary Care Provider] - 2 days Print Language: [place] Verdean
--- NOTE | 2020-11-27 15:07 | ECG_ITS ---
Test Reason : WEAKNESS Blood Pressure : / mmHG Vent. Rate : 061 BPM Atrial Rate : 061 BPM P-R Int : 202 ms QRS Dur : 120 ms QT Int : 446 ms P-R-T Axes : 035 -48 071 degrees QTc Int : 448 ms Normal sinus rhythm Left axis deviation Left bundle branch block Abnormal ECG When compared with ECG of 12-AUG-2020 09:39, Vent. rate has decreased BY 33 BPM Referred By: Negrita Morales Electronically Signed By:Karri Mendoza
[2020-11-27] MEDS: 0.9 % Sodium Chloride 1,000 ML 999 ML IVCONT (15:10)
[2020-11-27 15:14] LABS: MANUAL DIFF FLAG NO
[2020-11-27 15:16] LABS: Basophils Percent Auto 0.2 % (0-2); Hematocrit 32.9 % (37-47); Hemoglobin 10.8 g/dl (12.0-16.0); Imm Gran Abs Auto 0.01 X10*3/uL (0.00-0.03); Imm Gran Pct Auto 0.2 % (0.0-0.4); Lymphocytes Absolute Auto 1.1 X10*3/uL (1.2-4.9); Lymphocytes Percent Auto 25.5 % (20-40); Mean Corpuscular HGB Conc 32.8 g/dl (31.0-35.0); Mean Corpuscular Hemoglobin 30.4 pg (27.0-33.0); Mean Corpuscular Volume 92.7 fL (80-98); Mean Platelet Volume 9.5 fL (9.4-12.3); Monocytes Absolute Auto 0.3 X10*3/uL (0.1-1.2); Monocytes Percent Auto 6.8 % (2-11); Neutrophils Absolute Auto 2.8 X10*3/uL (2.0-8.3); Neutrophils Percent Auto 67.3 % (45-73); Platelet Count 125 X10*3/uL (160-400); Red Blood Count 3.55 X10*6/uL (4.20-5.50); White Blood Count 4.1 X10*3/uL (4.8-10.8)
[2020-11-27 15:23] LABS: INTERNATIONAL NORM RATIO 1.6 (0.9-1.1); Prothrombin Time 18.6 SEC (10.8-13.0)
[2020-11-27 15:29] VITALS: BP 143/76; PULSE 64; RESP 20; TEMP 37.2; O2SAT 96
[2020-11-27 15:51] LABS: COVID-19 Test Negative (Negative)
[2020-11-27 16:06] LABS: Erythrocyte Sedimentation Rate 92 MM/HR (0-20)
[2020-11-27 16:13] LABS: Alanine Aminotransferase 14 U/L (0-31); Albumin Level 3.6 g/dL (3.5-5.0); Alkaline Phosphatase 124 U/L (39-117); Anion Gap 13 (12-20); Aspartate Amino Transferase 23 U/L (5-31); Bilirubin Total 0.5 mg/dL (0.0-1.0); Blood Urea Nitrogen 23 mg/dL (9-16); C Reactive Protein 1.15 mg/dL (< or = 0.50); Calcium 9.1 mg/dL (8.4-10.2); Carbon Dioxide 28 mmol/L (22-29); Chloride 103 mmol/L (96-108); Estimated Glomerular Filt Rate 47; Glucose Random 88 mg/dL (60-115); Magnesium 2.1 mg/dL (1.6-2.6); Potassium 4.6 mmol/L (3.3-5.1); Sodium 139 mmol/L (135-145); Total Protein 6.6 g/dL (6.5-8.0)
== END 2020-11-27 17:19 | disposition home or self-care (01) ==
PROVIDERS: Physician Assistant Medical; Emergency Provider Emergency Medicine; PCP Hospitalist
DX: I62.00 Nontraumatic subdural hemorrhage, unspecified (principal); I69.954 Hemiplegia and hemiparesis following unspecified cerebrovascular disease affecting left non-dominant side; I10 Essential (primary) hypertension; D64.9 Anemia, unspecified; D69.6 Thrombocytopenia, unspecified; I44.7 Left bundle-branch block, unspecified; Z86.718 Personal history of other venous thrombosis and embolism; Z79.01 Long term (current) use of anticoagulants; Z79.899 Other long term (current) drug therapy; Z20.822 Contact with and (suspected) exposure to COVID-19
CPT/HCPCS: 36415; 70450; 71045; 80053; 83735; 85025; 85610; 85652; 86140; 87635; 93005; 96360; 99284; 99291

== ENCOUNTER 2020-12-02 11:25 | Emergency (ER) | payer MEDICAID, SELFPAY ==
--- NOTE | ~2020-12-02 | XR_ITS ---
EXAMINATION: XR CHEST CLINICAL INFORMATION: Acute mental status change and headache COMPARISON: Previous chest x-ray 11/27/[address] August 2020 TECHNIQUE: Frontal view of the chest was obtained. FINDINGS: The cardiac silhouette is upper normal in size but stable. Hilar and mediastinal contours are unremarkable.. There are chronic interstitial changes seen in the lungs, greatest at the right lung base. This does not appear appreciably changed from previous exams. There is no pleural effusion or pneumothorax. There are degenerative changes of the spine. There is an old left proximal humerus fracture and arthritis at the left shoulder joint. XR/XR chest 1V IMPRESSION: No evidence for acute disease in the chest. Chronic increased interstitial markings similar to previous exams
--- NOTE | ~2020-12-02 | CT_ITS ---
EXAMINATION: CT ANGIOGRAM OF THE HEAD CT ANGIOGRAM OF THE NECK CLINICAL INFORMATION: Persistent headache right side. Off of Warfarin. COMPARISON: CT 2199 scans of the head 11/27/2020 and 10/18/2018. CTA of the head and neck 03/15/2013. TECHNIQUE: A noncontrast axial CT scan of the head was obtained. Test bolus series followed by intravenous administration 70 mL of Omnipaque 350. Helical imaging was performed in the axial plane from the mediastinum to the skull vertex. The degree of stenosis is based off NASCET criteria. The data was processed at the marketing technologist workstation for generation of MIP images. Three-dimensional volume rendered reformatted images were also generated at an offline 3-D workstation. This CT examination was performed using dose optimization techniques as appropriate, variously including the following: *Automated exposure control *Adjustment of mA and/or kV according to patient size (this includes techniques or standardized protocols for targeted exams where dose is matched to indication/reason for exam; i.e. extremities or head) *Use of iterative reconstruction technique DLP: 2199 mGy-cm. FINDINGS: CT Head: There has been slight interval decrease in the subdural hematoma along the inferior right tentorium extending into the posterior fossa. No new areas of hemorrhage are demonstrated. There is no evidence of an acute territorial infarct. No abnormal mass-effect or midline shift is seen. [place] to white matter differentiation is well preserved. No extra-axial fluid collections are identified. There is no abnormal enhancement. The ventricles and sulci are commensurately prominent consistent with diffuse volume loss. There are sequelae of a chronic infarct in the high right frontal lobe with adjacent ex vacuo dilatation of the body of the right lateral ventricle, similar compared to prior imaging. Gliotic and encephalomalacia changes are noted in the region. There are also scattered areas of low-attenuation in the subcortical and periventricular white matter elsewhere consistent with chronic microvascular ischemic changes. An area of low attenuation in the left frontal bone inner table is unchanged. The soft tissues are unremarkable. The mastoid air cells and visualized portions of the paranasal sinuses are well-aerated. CTA Neck: There is a four-vessel aortic arch and the left vertebral artery arises directly off the aorta. There are mild atheromatous calcifications of the aortic arch and at the origins of the bilateral subclavian arteries. The common carotid arteries are patent. The right common carotid arteries tortuous and extends almost in the midline. There are mild atheromatous calcifications at the carotid bifurcations bilaterally. The cervical internal carotid arteries are patent. There is moderate tortuosity of the upper cervical left internal carotid artery, and there is slight irregularity of the caliber of the vessel along the inner curvature of one of the loops no intimal flap or narrowing demonstrated. The right cervical internal carotid artery appears normal. The origins of both vertebral arteries are well seen and appear normal. Both vertebral arteries are widely patent and demonstrate good opacification throughout their cervical course. The right vertebral artery is slightly dominant. Nonvascular: Extensive groundglass opacifications are noted in the lungs bilaterally, most prominent in the right upper lobe, slightly more extensive compared to the prior CTA. There is been interval increase in the size of a nodule in the right lobe of thyroid gland at the mid/lower pole, which now measures 2.7 cm. Smaller areas of low-attenuation are redemonstrated in the left lobe. There is no cervical lymphadenopathy. There are small lymph nodes at multiple levels in the neck bilaterally. There are moderate spondylitic and facet arthropathic changes in the cervical spine. CTA Head: There are nonocclusive atheromatous calcifications of the bilateral cavernous internal carotid arteries. The middle and anterior cerebral arteries bilaterally demonstrate normal caliber with no evidence of focal stenosis, aneurysm or vascular malformation. There is normal arborization of the middle cerebral artery branches. The anterior communicating artery is normal. In the posterior circulation, the right vertebral artery is dominant. The vertebral arteries intradurally have normal caliber. The basilar artery appears normal. The right posterior cerebral artery arises directly off the anterior circulation ( origin). The posterior cerebral arteries have normal caliber. The venous sinuses opacify normally. CT/CT angio head neck IMPRESSION: CT head and neck: 1. There are no acute bleeds or infarcts. There are no masses or areas of abnormal enhancement. 2. There are sequelae of a chronic infarct in the right frontal lobe. There are chronic microvascular ischemic changes and there is diffuse volume loss. 3. There is a 2.7 cm nodule at the mid/lower pole of the right of the thyroid gland which is increased in size. If was not previously obtained, recommend thyroid ultrasound. 4. There are groundglass opacifications in the lungs bilaterally, increased compared to prior imaging. CTA head and neck: 1. There is slight irregular caliber of the upper cervical left internal carotid artery. No distinct beading is noted, but this may be consistent with an area of fibromuscular dysplasia. 2. No flow limiting stenoses or severe atheromatous changes seen in the neck vasculature. 3. Intracranially there are no focal stenoses, aneurysms or vascular malformations.
[2020-12-02 11:30] VITALS: BP 159/80; BP 166/87; PULSE 64; PULSE 67; RESP 18; TEMP 36.7; O2SAT 96; O2SAT 97; BMI 17.7
--- NOTE | 2020-12-02 11:35 | ECG_ITS ---
Test Reason : ALTERED MENTAL Blood Pressure : / mmHG Vent. Rate : 055 BPM Atrial Rate : 055 BPM P-R Int : 194 ms QRS Dur : 140 ms QT Int : 458 ms P-R-T Axes : 038 -46 056 degrees QTc Int : 438 ms Sinus bradycardia Left axis deviation Left bundle branch block Abnormal ECG When compared with ECG of 27-NOV-2020 15:22, No significant changes seen Referred By: Negrita Morales Electronically Signed By:EMORY ABILEY MD
[2020-12-02] MEDS: 0.9 % Sodium Chloride 1,000 ML 999 ML IVCONT (12:29)
[2020-12-02 12:33] VITALS: BP 154/57; PULSE 52; RESP 16
[2020-12-02 12:42] LABS: MANUAL DIFF FLAG NO
[2020-12-02 12:52] LABS: Basophils Percent Auto 0.2 % (0-2); Hematocrit 33.9 % (37-47); Hemoglobin 11.1 g/dl (12.0-16.0); Imm Gran Abs Auto 0.01 X10*3/uL (0.00-0.03); Imm Gran Pct Auto 0.2 % (0.0-0.4); Lymphocytes Absolute Auto 0.9 X10*3/uL (1.2-4.9); Lymphocytes Percent Auto 16.5 % (20-40); Mean Corpuscular HGB Conc 32.7 g/dl (31.0-35.0); Mean Corpuscular Hemoglobin 30.4 pg (27.0-33.0); Mean Corpuscular Volume 92.9 fL (80-98); Mean Platelet Volume 9.3 fL (9.4-12.3); Monocytes Absolute Auto 0.2 X10*3/uL (0.1-1.2); Monocytes Percent Auto 4.2 % (2-11); Neutrophils Absolute Auto 4.2 X10*3/uL (2.0-8.3); Neutrophils Percent Auto 78.9 % (45-73); Red Blood Count 3.65 X10*6/uL (4.20-5.50); Red Cell Distribution Width 12.1 % (11.0-16.0); White Blood Count 5.3 X10*3/uL (4.8-10.8)
[2020-12-02 12:57] LABS: INTERNATIONAL NORM RATIO 1.2 (0.9-1.1); Prothrombin Time 13.7 SEC (9.9-13.0)
[2020-12-02 13:05] LABS: COVID-19 Test Negative (Negative); IDNOW Serial# 08D9AD1C
--- NOTE | 2020-12-02 13:07 | ED_ITS ---
HPI - Altered Mental Status General Chief Complaint: General Medical Stated Complaint: headache, htn Time Seen by Provider: 12/02/20 11:29 Source: patient, EMS, RN notes reviewed and other ( [facility] and Dr. Vasquez) Mode of arrival: EMS Limitations: altered mental status History of Present Illness HPI narrative: 65-year-old female who is currently residing at [facility] with a past medical history of Left bundle branch block, hypertension, DVT, PVD, thrombocytopenia, chronic anemia, anti phospholipid syndrome, obsessive- compulsive disorder, glaucoma, migraine headaches and CVA with left hemiparesis currently on Coumadin although was held since 11/23/20 due to a recent elevated PT/INR of 65.8/5.4 although she had a persistent headache therefore she was sent here for further evaluation treatment and had a CT scan of her brain without contrast which revealed an Acute right subtentorial and posterior falx subdural bleed without mass effect on 11/27/20. therefore she was sent back to [facility] due to the treatment was for her Coumadin to be held and to repeat a CT scan if her altered mental status change. therefore today she is presenting due to persistent headache and per EMS they report the nurse said that the patient has been more altered than usual since her shift started at 07:[address] Dr. Vasquez called and requested repeat imaging of her brain due to her history. On exam patient is alert and at baseline similar compared to her last visit when I seen her on 11/27/2020 I do not see any increase in altered mental status. She is complaining of the persistent headache to the right temporal aspect. Reports associated nausea sensitivity. She also reports she is unable to focus. Reports no symptomatic relief with any medication including oxycodone. Related Data Home Medications Medication Instructions Recorded Confirmed Citrucel (sucrose) 1 tbsp PO DAILY PRN 08/09/20 09/05/20 alum-mag hydroxide-simeth 15 ml PO Q6H PRN 08/09/20 09/05/20 [Feli-Lanta] ammonium lactate 1 appl TOPICAL BID 08/09/20 09/05/20 betamethasone dipropionate 1 appl TOPICAL Q3D 08/09/20 09/05/20 bisacodyl 10 mg UT DAILY PRN 08/09/20 09/05/20 cetirizine 10 mg PO DAILY 08/09/20 08/09/20 chlordiazepoxide HCl 5 mg PO BID 08/09/20 09/05/20 clobazam 5 mg PO DAILY 08/09/20 09/05/20 ferrous sulfate 325 mg PO BID 08/09/20 09/05/20 gabapentin 200 mg PO BID 08/09/20 09/05/20 horse chestnut 300 mg PO DAILY 08/09/20 09/05/20 lactase [Lactaid] 3,000 unit PO QID PRN 08/09/20 09/05/20 melatonin 5 mg PO BEDTIME PRN 08/09/20 09/05/20 mometasone 1 spray INTRANASAL Q12H PRN 08/09/20 09/05/20 multivitamin 1 tab PO DAILY 08/09/20 09/05/20 oxybutynin chloride 10 mg PO DAILY 08/09/20 09/05/20 oxycodone-acetaminophen 0.5 tab PO TID PRN 08/09/20 09/05/20 polyvinyl alcohol [Artificial 2 drp OPHTHALMIC (EYE) QID PRN 08/09/20 09/05/20 Tears (polyvin alc)] vitamin B complex 1 tab PO DAILY 08/09/20 09/05/20 lisinopril 5 mg tablet 5 mg PO DAILY 09/05/20 09/05/20 Previous Rx's Medication Instructions Recorded metoprolol tartrate 50 mg PO BID 30 Days #120 tab 08/14/20 warfarin 3 mg PO DAILY 30 Days #30 tab 08/14/20 oxycodone 5 mg PO BID PRN #10 tab 11/27/20 Allergies Allergy/AdvReac Type Severity Reaction Status Date / Time hydrocodone [Vicodin] Allergy Unknown vomiting Verified 09/05/20 10:07 lactose [LACTOSE] Allergy Unknown UNKNOWN Verified 09/05/20 10:07 lamotrigine [From LAMICTAL] Allergy Unknown UNKNOWN Verified 09/05/20 10:07 NSAIDS (Non-Steroidal AdvReac Mild KIDNEY Verified 09/05/20 10:07 Anti-Inflamma DISEASE= [NSAIDS (NON-STEROIDAL ANTI-INFLAMMA] dairy products Allergy Unknown diarrhea Uncoded 09/05/20 10:07 Review of Systems 2 Review of Systems: Constitutional : No changes in activity, No lethargy, No recent prior head injury, No agitation, No increased fussiness ENT/Mouth : No Ear Pain, No Nasal discharge/drainage Eyes: No Eye Pain, No Swelling, No Redness, No Foreign Body, No Vision Changes Cardiovascular : No Chest Pain, No SOB Respiratory : No Cough Gastrointestinal : No Nausea, No Vomiting, No abdominal Pain Genitourinary : No Dysuria, No Urinary Frequency, No Urinary Incontinence, No Urgency, No Flank Pain Musculoskeletal : No joint pain, No neck stiffness, No back pain/injury Skin : No lacerations Neuro : No unsteady gait, No Paresthesias, No Loss of Consciousness, No altered mental status, No dizziness, + Headache Denies past medical history of HIV, recent trauma, recent spinal/ epidural procedure, new medication, URI symptoms, close contacts with similar symptoms, tick bite, or known CO2 exposure. Yes all other systems are reviewed and are negative [facility] Past Medical History Attestation statement: The following information was validated with the patient. Medical History Abnormal CT scan, chest Abnormal echocardiogram Acute respiratory failure with hypoxia Anticoagulated on Coumadin Antiphospholipid syndrome Cardiomyopathy Cerebrovascular accident (CVA) with left hemiparesis Chronic anemia Depression DVT (deep venous thrombosis) Glaucoma Hypertension Obsessive compulsive disorder Peripheral vascular disease Respiratory failure Thrombocytopenia Surgical History No pertinent past surgical history Family History Family History Father Colon cancer Mother Alzheimer's dementia Social History Social History Household Members: None Housing: Half-Way Do you presently have visiting nurse or other home services: No Alcohol intake: never Patient Tobacco Use Status: Never used Tobacco Second Hand Smoke Exposure: No Use of substances other than those prescribed or required for medical reasons: No Advance Directives: Yes Advance Directives Information Provided: Yes Advance Directives on File: No Patient : No service: No Current occupational status: disabled Physical Exam Vital Signs: Vital Signs: Last Vital Signs Temp 98.0 F 12/02/20 11:30 Pulse 52 12/02/20 12:33 Resp 16 12/02/20 12:33 BP 154/57 H 12/02/20 12:33 Pulse Ox 96 12/02/20 11:30 Oxygen Flow Rate 1 12/02/20 11:30 Body Mass Index 17.7 Vital signs have been reviewed as normal and appeared to be correct. Blood pressure hypertensive 166/87. Heart rate normal. Respiration rate normal. Temperature normal. Oxygen saturation normal. Appearance: Alert. Oriented X3. No acute distress. Head: Normal external exam. Normocephalic. Atraumatic. Able to rotate head bilaterally. Eyes: PERRLA. EOMI. No nystagmus noted. Conjunctiva and sclera normal. Eyelids normal. Corneal reflex normal. ENT: EAC normal. TM's Normal. Hearing normal. Pharynx normal. Uvula midline. tongue midline. Moist mucous membranes. No trismus noted. No drooling noted. No muffled voice noted. No nystagmus noted. Neck: Normal inspection. Neck supple. FROM. No adenopathy. Trachea midline. Thyroid Normal. No meningeal signs. No neck mass noted. CVS: Normal heart rate and rhythm. Heart sound normal. No murmurs noted. Pulses normal throughout. Respiratory: No respiratory distress. Painless inspiration. Breath sounds nor mal. No wheezes/rales/rhonchi noted. Chest nontender. No accessory muscle usage noted or decreased air movement noted. Abdomen: Soft and nontender. Bowel sounds normal in all 4 quadrants. No distent ion noted. No organomegaly noted. No visible injury noted. Back: No CVA tenderness. Full range of motion noted. Skin: Skin warm and dry. Normal skin color. Normal skin turgor. No rashes/lesions/lacerations noted. Extremities: No lower extremity edema. Extremities exhibit normal range of motion. Extremities nontender. Able to shrug shoulders bilaterally and keep up against resistance. Neuro: Oriented X 3. patient has a baseline left sided hemiparesis weakness. Otherwise no new weakness to right side. No sensory weakness to right side.No motor deficit. No sensory deficit. Reflexes normal. Moving all extremities. No focal motor deficits. Cranial nerves II-XI intact bilaterally. Facial strength normal. Normal cognition. Speech normal. No pronator drift to right arm. No tremor noted. No fasciculations noted. Muscle tone normal to right side. No asterixis noted. Hand drop from overhead-Mrs. face. No rigidity noted. NIHSS score 0. Course Course Course Narrative: 11:35am - 65-year-old female who is currently residing at [facility] migraine headaches and CVA with left hemiparesis currently on Coumadin although was held since 11/23/20 due to a recent elevated PT/INR of 65.8/5.4. she had a persistent headache was sent here for further evaluation and treatment on 11/27/[address] scan of her brain without contrast at that time which revealed Acute right subtentorial and posterior falx subdural bleed without mass effect. neuro surgery at [facility] was consulted and they recommended stopping the Coumadin and patient had already stopped her Coumadin and they reported that the patient could have a repeat CT scan if her symptoms increased although it was decided that she was sent back to [facility]. Although today due to persistent headache and her nurse with altered mental status she was sent here for further evaluation and treatment. Although on my exam patient is at baseline for mentation motor/sensation. No acute focal neuro deficits are noted. Patient is at baseline. NIH SS score is 0. therefore will obtain CT scan of brain without contrast, CTA of head and neck with contrast, labs, chest x-ray. Provide 5 mg of oxycodone and re-evaluate. Reevaluation(s) Reevaluation #1: - labs return and patient mild anemia improved when compared to prior. PT INR at 13.7/1.2. BUN 22 which is baseline. Otherwise all other labs are at baseline and within normal limits. COVID swab negative. CT scan of brain without contrast and CTA of head and neck with contrast revealed chronic changes no acute processes were noted. Therefore I consulted with Dr. True Vasquez and due to nothing new patient can be transported back to [facility] at this time. Patient understands agrees with this plan. Time: 15:35 MDM - Altered Mental Status Medical Records Attestation: I reviewed the patient's medical records. Lab Data Attestation: I reviewed the patient's lab results. Result diagrams: 12/02/20 12:28 12/02/20 12:28 Labs: Lab Results 12/02/20 12/02/20 12/02/20 Range/Units 12:28 12:28 12:28 WBC 5.3 (4.8-10.8) X10*3/uL RBC 3.65 L (4.20-5.50) X10*6/uL Hgb 11.1 L (12.0-16.0) g/dl Hct 33.9 L (37-47) % MCV 92.9 (80-98) fL MCH 30.4 (27.0-33.0) pg MCHC 32.7 (31.0-35.0) g/dl RDW 12.1 (11.0-16.0) % Plt Count 79 L D (160-400) X10*3/uL MPV 9.3 L (9.4-12.3) fL Immature Gran % (Auto) 0.2 (0.0-0.4) % Neut % (Auto) 78.9 H (45-73) % Lymph % (Auto) 16.5 L (20-40) % [place] % (Auto) 4.2 (2-11) % Eos % (Auto) 0.0 (0-4) % Baso % (Auto) 0.2 (0-2) % Lymph # (Auto) 0.9 L (1.2-4.9) X10*3/uL [place] # (Auto) 0.2 (0.1-1.2) X10*3/uL Eos # (Auto) 0.0 (0.0-0.4) X10*3/uL Baso # (Auto) 0.0 (0.0-0.2) X10*3/uL Abs Immat Gran (auto) 0.01 (0.00-0.03) X10*3/uL Absolute Neuts (auto) 4.2 (2.0-8.3) X10*3/uL Absolute Nucleated RBC 0.000 (0.0-0.012) X10*3/uL Nucleated RBC % (auto) 0.0 (0.0-0.2) /100WBC Hold Purple Top SEE NOTE PT 13.7 H (9.9-13.0) SEC INR 1.2 H (0.9-1.1) Sodium (135-145) mmol/L Potassium (3.3-5.1) mmol/L Chloride (96-108) mmol/L Carbon Dioxide (22-29) mmol/L Anion Gap (12-20) BUN (9-16) mg/dL Creatinine (0.5-1.4) mg/dL Estim Creat Clear Calc Estimated GFR Random Glucose (60-115) mg/dL Calcium (8.4-10.2) mg/dL Magnesium (1.6-2.6) mg/dL Total Bilirubin (0.0-1.0) mg/dL AST (5-31) U/L ALT (0-31) U/L Alkaline Phosphatase (39-117) U/L Total Protein (6.5-8.0) g/dL Albumin (3.5-5.0) g/dL COVID-19 (FREDDY) (Negative) COVID-19 Clin Com 12/02/20 12/02/20 Range/Units 12:28 12:28 WBC (4.8-10.8) X10*3/uL RBC (4.20-5.50) X10*6/uL Hgb (12.0-16.0) g/dl Hct (37-47) % MCV (80-98) fL MCH (27.0-33.0) pg MCHC (31.0-35.0) g/dl RDW (11.0-16.0) % Plt Count (160-400) X10*3/uL MPV (9.4-12.3) fL Immature Gran % (Auto) (0.0-0.4) % Neut % (Auto) (45-73) % Lymph % (Auto) (20-40) % [place] % (Auto) (2-11) % Eos % (Auto) (0-4) % Baso % (Auto) (0-2) % Lymph # (Auto) (1.2-4.9) X10*3/uL [place] # (Auto) (0.1-1.2) X10*3/uL Eos # (Auto) (0.0-0.4) X10*3/uL Baso # (Auto) (0.0-0.2) X10*3/uL Abs Immat Gran (auto) (0.00-0.03) X10*3/uL Absolute Neuts (auto) (2.0-8.3) X10*3/uL Absolute Nucleated RBC (0.0-0.012) X10*3/uL Nucleated RBC % (auto) (0.0-0.2) /100WBC Hold Purple Top PT (9.9-13.0) SEC INR (0.9-1.1) Sodium 141 (135-145) mmol/L Potassium 4.3 (3.3-5.1) mmol/L Chloride 102 (96-108) mmol/L Carbon Dioxide 28 (22-29) mmol/L Anion Gap 15 (12-20) BUN 22 H (9-16) mg/dL Creatinine 1.07 (0.5-1.4) mg/dL Estim Creat Clear Calc 39.9 Estimated GFR 52 Random Glucose 99 (60-115) mg/dL Calcium 9.8 D (8.4-10.2) mg/dL Magnesium 2.0 (1.6-2.6) mg/dL Total Bilirubin 0.5 (0.0-1.0) mg/dL AST 26 (5-31) U/L ALT 14 (0-31) U/L Alkaline Phosphatase 140 H (39-117) U/L Total Protein 7.3 (6.5-8.0) g/dL Albumin 3.8 (3.5-5.0) g/dL COVID-19 (FREDDY) Negative (Negative) COVID-19 Clin Com See Note Imaging Data Chest x-ray: Attestation: I personally reviewed and interpreted this imaging study as follows: Radiologist's impression: FINDINGS: The cardiac silhouette is upper normal in size but stable. Hilar and mediastinal contours are unremarkable.. There are chronic interstitial changes seen in the lungs, greatest at the right lung base. This does not appear appreciably changed from previous exams. There is no pleural effusion or pneumothorax. There are degenerative changes of the spine. There is an old left proximal humerus fracture and arthritis at the left shoulder joint. XR/XR chest 1V IMPRESSION: No evidence for acute disease in the chest. Chronic increased interstitial markings similar to previous exams Ct brain and CTA Head/neck: Attestation: I personally reviewed and interpreted this imaging study as follows: Radiologist's impression: ADDENDUM: IMPRESSION: CT head and neck: 1. There are no new acute bleeds or infarcts. There are no masses or areas of abnormal enhancement. 2. There has been interval decrease in the blood along the tentorium the right posterior fossa compared to prior imaging. 3. There are sequelae of a chronic infarct in the right frontal lobe. There are chronic microvascular ischemic changes and there is diffuse volume loss. 4. There is a 2.7 cm nodule at the mid/lower pole of the right of the thyroid gland which is increased in size. If was not previously obtained, recommend thyroid ultrasound. 5. There are groundglass opacifications in the lungs bilaterally, increased compared to prior imaging. CTA head and neck: 1. There is slight irregular caliber of the upper cervical left internal carotid artery. No distinct beading is noted, but this may be consistent with an area of fibromuscular dysplasia. 2. No flow limiting stenoses or severe atheromatous changes seen in the neck vasculature. 3. Intracranially there are no focal stenoses, aneurysms or vascular malformations. ECG Data ECG #1: Attestation: I personally reviewed and interpreted this ECG as follows: ECG interpretation date: 12/02/20 ECG interpretation time: 11:58 Interpretation: Sinus bradycardia with ventricular rate of 55 with left axis deviation with left bundle branch block no acute ischemic changes are noted. Similar when compared to prior EKG 11/27/2020. Critical Care Time Critical Care Time Critical Care Time: Yes Total Critical Care Time: 60 Attestation: I personally attest to this time spent taking care of the patient Discharge Plan Discharge Clinical Impression: Migraine headache Patient Disposition: Home, Self-Care Instructions: Migraine Headache (ED) Prescriptions: No Action multivitamin Tablet 1 tab PO DAILY RF: 0 cetirizine 10 mg Tablet 10 mg PO DAILY RF: 0 oxybutynin chloride 10 mg Tablet Extended Release 24hr 10 mg PO DAILY RF: 0 polyvinyl alcohol [Artificial Tears (polyvin alc)] 1.4 % Drops 2 drp OPHTHALMIC (EYE) QID PRN (Reason: Dry Eyes) RF: 0 oxycodone-acetaminophen 5-325 mg Tablet 0.5 tab PO TID PRN (Reason: Moderate Pain (Scale Score 5-6)) RF: 0 chlordiazepoxide HCl 5 mg Capsule 5 mg PO BID RF: 0 bisacodyl 10 mg Suppository 10 mg UT DAILY PRN (Reason: Constipation) RF: 0 lactase [Lactaid] 3,000 unit Tablet 3,000 unit PO QID PRN (Reason: Lactose Intolerance) RF: 0 betamethasone dipropionate 0.05 % Cream 1 appl TOPICAL Q3D RF: 0 mometasone 50 mcg/actuation [place],Non-Aerosol 1 spray INTRANASAL Q12H PRN (Reason: Congestion) RF: 0 vitamin B complex Tablet 1 tab PO DAILY RF: 0 ammonium lactate 12 % Cream 1 appl TOPICAL BID RF: 0 gabapentin 100 mg Capsule 200 mg PO BID RF: 0 alum-mag hydroxide-simeth [Feli-Lanta] 200-200-20 mg/5 mL Suspension 15 ml PO Q6H PRN (Reason: GI UPSET) RF: 0 ferrous sulfate 325 mg (65 mg iron) Tablet,Delayed Release (Dr/Ec) 325 mg PO BID RF: 0 horse chestnut 300 mg Capsule 300 mg PO DAILY RF: 0 Citrucel (sucrose) Powder 1 tbsp PO DAILY PRN (Reason: Constipation) RF: 0 melatonin 5 mg Tablet 5 mg PO BEDTIME PRN (Reason: Insomnia) RF: 0 clobazam 10 mg Tablet 5 mg PO DAILY RF: 0 metoprolol tartrate 25 mg Tablet 50 mg PO BID 30 Days Qty: 120 RF: 0 warfarin 3 mg tablet 3 mg PO DAILY 30 Days Qty: 30 RF: 0 oxycodone 5 mg tablet 5 mg PO BID PRN (Reason: pain) Qty: 10 RF: 0 lisinopril 5 mg tablet 5 mg PO DAILY RF: 0 Referrals: True Vasquez DO [Physician] - 2 days Print Language: Ukrainian
[2020-12-02 13:13] LABS: Platelet Count 79 X10*3/uL (160-400)
[2020-12-02] MEDS: oxyCODONE HCl Immed Release 5 MG TABLET PO (13:17)
[2020-12-02 13:20] LABS: Alanine Aminotransferase 14 U/L (0-31); Albumin Level 3.8 g/dL (3.5-5.0); Alkaline Phosphatase 140 U/L (39-117); Anion Gap 15 (12-20); Aspartate Amino Transferase 26 U/L (5-31); Bilirubin Total 0.5 mg/dL (0.0-1.0); Blood Urea Nitrogen 22 mg/dL (9-16); Calcium 9.8 mg/dL (8.4-10.2); Carbon Dioxide 28 mmol/L (22-29); Chloride 102 mmol/L (96-108); Creatinine Clr Calc Pharmacy 39.9; Estimated Glomerular Filt Rate 52; Glucose Random 99 mg/dL (60-115); Potassium 4.3 mmol/L (3.3-5.1); Sodium 141 mmol/L (135-145); Total Protein 7.3 g/dL (6.5-8.0)
[2020-12-02] MEDS: iohexoL 350 MG/ML 100 ML INFUS..BTL IV (14:24)
[2020-12-02 18:00] VITALS: BP 137/70; PULSE 68; RESP 16; TEMP 36.6; O2SAT 97
== END 2020-12-02 18:51 | disposition home or self-care (01) ==
PROVIDERS: Physician Assistant Medical; Emergency Provider Emergency Medicine Emergency Medical Services
DX: G43.009 Migraine without aura, not intractable, without status migrainosus (principal); D64.9 Anemia, unspecified; D68.61 Antiphospholipid syndrome; I69.954 Hemiplegia and hemiparesis following unspecified cerebrovascular disease affecting left non-dominant side; I10 Essential (primary) hypertension; Z86.718 Personal history of other venous thrombosis and embolism; Z79.01 Long term (current) use of anticoagulants; Z79.899 Other long term (current) drug therapy; Z20.822 Contact with and (suspected) exposure to COVID-19
CPT/HCPCS: 36415; 70496; 70498; 71045; 80053; 83735; 85025; 85610; 87635; 93005; 96360; 99285; Q9967

== ENCOUNTER → 2021-03-27 14:21 | Outpatient (BNVA) | payer MEDICAID, SELFPAY | PROVIDERS: PCP Hospitalist; Referring Provider Hospitalist; Visit Provider Internal Medicine Cardiovascular Disease | DX: D68.61 Antiphospholipid syndrome (principal); I42.9 Cardiomyopathy, unspecified; I44.7 Left bundle-branch block, unspecified; I69.954 Hemiplegia and hemiparesis following unspecified cerebrovascular disease affecting left non-dominant side; I10 Essential (primary) hypertension; J96.01 Acute respiratory failure with hypoxia; I73.9 Peripheral vascular disease, unspecified; Z79.01 Long term (current) use of anticoagulants; Z79.891 Long term (current) use of opiate analgesic; Z79.899 Other long term (current) drug therapy | CPT/HCPCS: 99212 ==

== ENCOUNTER → 2021-05-23 15:25 | Outpatient (REF) | payer SELFPAY ==
--- NOTE | 2021-05-23 15:31 | CA_ITS ---
Transthoracic Echocardiogram Patient (Last, First, Middle): Yen Ross, Gender: Female Date of : 1955 Age: 66 Procedure Date: 05/23/2021 Procedure Type: Transthoracic Echocardiogram Location: OP Height: 157.48 cm Weight: 49.9 kg BSA: 1.48 m2 Heart Rate: bpm BP: 118 / 60 mmHg Shelf Filler: Referring MD: Karri Mendoza MD Symptoms: I42.9 - Cardiomyopathy, unspecified Study Quality: Fair ECG Rhythm: Sinus Conclusions: - The left ventricular systolic function is moderately decreased. The calculated ejection fraction is 39% by biplane method. - The inferoseptal wall and mid inferior segment are akinetic. - No obvious valvular pathology seen on this study. Findings Left Ventricle Normal left ventricular cavity size. There is mildly increased left ventricular wall thickness. The left ventricular systolic function is moderately decreased. The calculated ejection fraction is 39% by biplane method. There is moderate global hypokinesis. There is paradoxical septal motion consistent with a left bundle branch block. E/E prime ratio is between 8 and 15 consistent with indeterminate filling pressures. Evidence suggests grade I (mild) diastolic dysfunction. Wall Motion Rest Echo Findings The inferoseptal wall and mid inferior segment are akinetic. Right Ventricle Normal right ventricular cavity size and systolic function. Atria Both atria are normal in size. Aortic Valve There is a normal trileaflet aortic valve. There is no aortic valve stenosis. There is trace (trivial) aortic valve regurgitation. Mitral Valve The mitral valve appears normal. There is mild mitral valve regurgitation. There is no mitral valve stenosis. Pulmonic Valve The pulmonic valve was not well visualized. Tricuspid Valve Normal tricuspid valve structure. There is trace tricuspid valve regurgitation. The pulmonary artery systolic pressure is normal. Great Vessels The asc aorta is normal in size. Venous The inferior vena cava is normal in size and collapses greater than 50% with inspiration. Pericardium/Pleural There is a trivial pericardial effusion. Prior Study Comparison No significant change compared to prior study dated: 08/12/2020. Recommendations, Care & Conclusions No obvious valvular pathology seen on this study. Measurements 2D Linear Measurements IVSd: 1.13 0.6-0.9/0.6-1.0 cm LVIDd: 5.17 3.9-5.3/4.2-5.9 cm LVIDd Index: 3.49 2.4-3.2/2.2-3.1 cm/m2 LVIDs: 3.98 2.0-3.6 cm LVPWd: 1.09 0.7-1.1 cm Ao Root: 3.30 2.1-3.5 cm LA Diam: 2.70 2.7-3.8/3.0-4.0 cm LAIDs Index: 1.82 1.5-2.3 cm/m2 LV Mass: 276.01 67-162/88-224 g LV Mass Index: 186.49 43-95/49-115 g/m2 LVOT Diam: 2.30 3.0+(-)1.3 cm 2D Systolic Function EF 4C: 33.60 >55% EF 2C: 46.70 >55% EF BiP: 38.80 >55% Mitral Valve MV Pk E: 0.54 MV PK A: 0.72 MV Decel Time: 198.00 E/A: 0.70 E'Lateral: 5.11 E'Medial: 4.03 E/E' Med: 13.40 E/E' Lat: 10.60 PHT: 58.00 MVA PHT: 3.79 Decel Webster: 2.73 Aortic Valve AoV Pk Juan F: 1.32 AoV Mn Juan F: 0.85 AoV VTI: 0.31 AoV Pk Grad: 7.00 Aov Mn Grad: 4.00 JED Cont.VTI: 2.59 LVOT LVOT Pk Juan F: 1.00 LVOT Mn Juan F: 0.65 LVOT VTI: 0.19 LVOT Pk Grad: 4.00 LVOT Mn Grad: 2.00 LVOT Diam: 2.30 LVOT Area: 4.15 Diastolic Function MV Pk E: 0.54 MV Pk A: 0.72 E/A: 0.70 E'Medial: 4.03 E/E' Med: 13.40 E' Laterial: 5.11 E/E' Lat: 10.60 Right Ventricle TAPSE (mm): 24.00 Tricuspid Valve TR Pk Juan F: 1.50 TR Pk Grad: 9.00 Great Vessels Aorta Ao Root-2D: 3.30 2.0-3.7 cm Ao Asc: 3.50 2.1-3.4 cm Pulmonary Valve PV Pk Juan F: 0.87 Peak PV Grad: 3.00 Updated in Other Vendor System with Status of Final Gage Kaur MD electronically signed on 05/25/2021 12:36:21 PM with status of Final
== END ==
LOC: HO.CARD 15:25
PROVIDERS: PCP Hospitalist; Visit Provider Internal Medicine Cardiovascular Disease
DX: I42.9 Cardiomyopathy, unspecified (principal)
CPT/HCPCS: 93306

== ENCOUNTER → 2021-12-14 10:51 | Outpatient (BNVA) | payer OTHER, SELFPAY | PROVIDERS: PCP Hospitalist; Visit Provider Surgery | DX: R92.8 Other abnormal and inconclusive findings on diagnostic imaging of breast (principal) | CPT/HCPCS: 99202 ==

== ENCOUNTER 2022-01-08 07:25 | Day surgery (SDC) | payer MEDICAID, SELFPAY ==
[2022-01-02 10:30] VITALS: BMI 17.3
--- NOTE | 2022-01-05 08:57 | HO.ANESPROP2 ---
Documented by User: Savi Oglesby NP 01/05/22 12:27 HPI - Anesthesia Eval Consult details Narrative: 66yo F for Right Breast Lumpectomy/Needle Coumadin for antiphospholipid syndrome. Hx of CVA with L side hemiparesis SNF resident Cleared by SNF provider for breast bx PMFSH Active Problems Active Problems: All Active Problems (Updated 01/02/22 @ 10:45 by Dafne Garvey RN) Hypoxia (Acute) Left bundle branch block (Acute) Migraine headache (Acute) Abnormal mammogram of right breast (Acute) Thrombocytopenia (Acute) Peripheral vascular disease (Acute) Obsessive compulsive disorder (Acute) Hypertension (Acute) Glaucoma (Acute) DVT (deep venous thrombosis) (Acute) Depression (Acute) Chronic anemia (Acute) Cerebrovascular accident (CVA) with left hemiparesis (Acute) Antiphospholipid syndrome (Acute) Anticoagulated on Coumadin (Acute) Abnormal echocardiogram (Acute) Cardiomyopathy (Acute) Past Medical History Medical History (Updated 01/02/22 @ 10:45 by Dafne Garvey RN) Abnormal CT scan, chest Abnormal echocardiogram Acute respiratory failure with hypoxia Anticoagulated on Coumadin Antiphospholipid syndrome Cardiomyopathy Cerebrovascular accident (CVA) with left hemiparesis Chronic anemia COVID-19 vaccine series completed Dependence on continuous supplemental oxygen Depression DVT (deep venous thrombosis) Glaucoma History of COVID-19 Hypertension Obsessive compulsive disorder Peripheral vascular disease Resides in [facility] facility Respiratory failure Thrombocytopenia Family History Family History Father Colon cancer Mother Alzheimer's dementia Surgical History Surgical History No pertinent past surgical history Social History Social History Household Members: None Housing: [facility] Housing Other:: resides at [facility] Are you a primary patient care secretary to a significant other at home: No Do you presently have visiting nurse or other home services: Yes ([facility] staff) Alcohol intake: never Patient Tobacco Use Status: Never used Tobacco Second Hand Smoke Exposure: No Use of substances other than those prescribed or required for medical reasons: No Are you DNR?: No Advance Directives: Yes Advance Directives Information Provided: Yes Advance Directives on File: Yes Advance Directives Date on File: 09/20/16 Recently lost weight without trying: No Eating poorly because of decreased appetite: No Nutrition Risks: No Nutritional Risk Poor oral hygiene: No (missing teeth) service: No Current occupational status: disabled Meds Allergies Allergy/AdvReac Type Severity Reaction Status Date / Time hydrocodone [Vicodin] Allergy Intermediate vomiting Verified 01/02/22 10:34 lactose [LACTOSE] Allergy Unknown UNKNOWN Verified 12/14/21 11:08 lamotrigine [From LAMICTAL] Allergy Unknown UNKNOWN Verified 12/14/21 11:08 NSAIDS (Non-Steroidal AdvReac Mild KIDNEY Verified 01/02/22 09:33 Anti-Inflamma DISEASE [NSAIDS (NON-STEROIDAL ANTI-INFLAMMA] dairy products Allergy Mild diarrhea Uncoded 01/02/22 09:33 Home Medications Medication Instructions Recorded Confirmed Last Taken Type aluminum-mag hydroxide-simethicone 15 ml PO Q6H PRN GI UPSET 08/09/20 01/02/22 Unknown History 200 mg-200 mg-20 mg/5 mL oral susp (Feli-Lanta) ammonium lactate 12 % topical cream 1 appl topical BID 08/09/20 01/02/22 Unknown History betamethasone dipropionate 0.05 % 1 appl topical Q3D 08/09/20 01/02/22 Unknown History topical cream bisacodyl 10 mg rectal suppository 10 mg [place] DAILY PRN Constipation 08/09/20 01/02/22 Unknown History cetirizine 10 mg tablet 10 mg PO DAILY 08/09/20 01/02/22 Unknown History chlordiazepoxide HCl 5 mg capsule 5 mg PO BID 08/09/20 01/02/22 Unknown History clobazam 10 mg tablet 5 mg PO DAILY 08/09/20 01/02/22 Unknown History ferrous sulfate 325 mg (65 mg 325 mg PO BID 08/09/20 01/02/22 Unknown History iron) tablet,delayed release gabapentin 100 mg capsule 200 mg PO BID 08/09/20 01/02/22 Unknown History horse chestnut 300 mg capsule 300 mg PO DAILY 08/09/20 01/02/22 Unknown History lactase 3,000 unit tablet (Lactaid) 3,000 unit PO QID PRN Lactose 08/09/20 01/02/22 Unknown History Intolerance melatonin 5 mg tablet 5 mg PO BEDTIME PRN Insomnia 08/09/20 01/02/22 Unknown History methylcellulose (with sugar) oral 1 tbsp PO DAILY PRN Constipation 08/09/20 01/02/22 Unknown History powder (Citrucel (sucrose) oral powder) mometasone 50 mcg/actuation nasal 1 spray intranasal Q12H PRN 08/09/20 01/02/22 Unknown History spray Congestion multivitamin 1 tab PO DAILY 08/09/20 01/02/22 Unknown History oxybutynin chloride 10 mg 10 mg PO DAILY 08/09/20 01/02/22 Unknown History tablet,extended release 24 hr polyvinyl alcohol 1.4 % eye drops 2 drp ophthalmic (eye) QID PRN Dry 08/09/20 01/02/22 Unknown History (Artificial Tears (polyvinyl Eyes alcohol)) vitamin B complex 1 tab PO DAILY 08/09/20 01/02/22 Unknown History lisinopril 5 mg tablet 5 mg PO DAILY 09/05/20 01/02/22 Unknown History acetaminophen 325 mg capsule 325 mg PO BID PRN Pain 12/14/21 01/02/22 Unknown History (Tylenol) diazepam 5 mg tablet 5 mg PO BID 12/14/21 01/02/22 Unknown History doxycycline hyclate 50 mg tablet 50 mg PO DAILY 12/14/21 01/02/22 Unknown History naloxone 0.4 mg/mL injection 0.4 mg subcut Q2M PRN Opioid 12/14/21 01/02/22 Unknown History solution Reversal sennosides 8.6 mg tablet (Senna 8.6 mg PO DAILY 12/14/21 01/02/22 Unknown History Laxative) warfarin 2.5 mg tablet 2.5 mg PO DAILY 01/02/22 01/02/22 Unknown History Exam Exam Date and Time: January 05, 2022 0857 Height,Weight and Vital Signs: Height 5 ft 4 in Weight 45.813 kg Pertinent Lab Results Pertinent Lab Results: 12/20/21 from outside facility WBC 3.0 (L) HGB 10.3 (L) HCT 30.4 (L) PLT 83 (L) NA 142 K 3.7 CL 106 CO2 31 BUN 27 (H) Creat 1.06 Narrative Narrative: EKG 01/2022 NSR First degree AV block IV conduction delay No changes from 12/2021 ECHO 05/2021 Conclusions: - The left ventricular systolic function is moderately decreased. The calculated ejection fraction is 39% by biplane method. ? ? ? - The inferoseptal wall and mid inferior segment are akinetic. ? - No obvious valvular pathology seen on this study.? ? ? Assessment and Plan Assessment Anesthesia Assessment: Chart Reviewed Documented by User: Vaughn Walker MD 01/08/22 09:28 [facility] Past Medical History Medical History (Updated 01/02/22 @ 10:45 by Dafne Garvey RN) Abnormal CT scan, chest Abnormal echocardiogram Acute respiratory failure with hypoxia Anticoagulated on Coumadin Antiphospholipid syndrome Cardiomyopathy Cerebrovascular accident (CVA) with left hemiparesis Chronic anemia COVID-19 vaccine series completed Dependence on continuous supplemental oxygen Depression DVT (deep venous thrombosis) Glaucoma History of COVID-19 Hypertension Obsessive compulsive disorder Peripheral vascular disease Resides in [facility] facility Respiratory failure Thrombocytopenia Family History Family History Father Colon cancer Mother Alzheimer's dementia Family history of problems with anesthesia: No Surgical History Surgical History No pertinent past surgical history History of Problems with Anesthesia: No Social History Social History Household Members: None Housing: [facility] Housing Other:: resides at [facility] Are you a primary patient care secretary to a significant other at home: No Do you presently have visiting nurse or other home services: Yes ([facility] staff) Alcohol intake: never Patient Tobacco Use Status: Never used Tobacco Second Hand Smoke Exposure: No Use of substances other than those prescribed or required for medical reasons: No Are you DNR?: No Advance Directives: Yes Advance Directives Information Provided: Yes Advance Directives on File: Yes Advance Directives Date on File: 09/20/16 Recently lost weight without trying: No Eating poorly because of decreased appetite: No Nutrition Risks: No Nutritional Risk Poor oral hygiene: No (missing teeth) service: No Current occupational status: disabled Meds Allergies Allergy/AdvReac Type Severity Reaction Status Date / Time hydrocodone [Vicodin] Allergy Intermediate vomiting Verified 01/02/22 10:34 lactose [LACTOSE] Allergy Unknown UNKNOWN Verified 12/14/21 11:08 lamotrigine [From LAMICTAL] Allergy Unknown UNKNOWN Verified 12/14/21 11:08 NSAIDS (Non-Steroidal AdvReac Mild KIDNEY Verified 01/02/22 09:33 Anti-Inflamma DISEASE [NSAIDS (NON-STEROIDAL ANTI-INFLAMMA] dairy products Allergy Mild diarrhea Uncoded 01/02/22 09:33 Home Medications Medication Instructions Recorded Confirmed Last Taken Type aluminum-mag hydroxide-simethicone 15 ml PO Q6H PRN GI UPSET 08/09/20 01/02/22 Unknown History 200 mg-200 mg-20 mg/5 mL oral susp (Feli-Lanta) ammonium lactate 12 % topical cream 1 appl topical BID 08/09/20 01/02/22 Unknown History betamethasone dipropionate 0.05 % 1 appl topical Q3D 08/09/20 01/02/22 Unknown History topical cream bisacodyl 10 mg rectal suppository 10 mg [place] DAILY PRN Constipation 08/09/20 01/02/22 Unknown History cetirizine 10 mg tablet 10 mg PO DAILY 08/09/20 01/02/22 Unknown History chlordiazepoxide HCl 5 mg capsule 5 mg PO BID 08/09/20 01/02/22 Unknown History clobazam 10 mg tablet 5 mg PO DAILY 08/09/20 01/02/22 Unknown History ferrous sulfate 325 mg (65 mg 325 mg PO BID 08/09/20 01/02/22 Unknown History iron) tablet,delayed release gabapentin 100 mg capsule 200 mg PO BID 08/09/20 01/02/22 Unknown History horse chestnut 300 mg capsule 300 mg PO DAILY 08/09/20 01/02/22 Unknown History lactase 3,000 unit tablet (Lactaid) 3,000 unit PO QID PRN Lactose 08/09/20 01/02/22 Unknown History Intolerance melatonin 5 mg tablet 5 mg PO BEDTIME PRN Insomnia 08/09/20 01/02/22 Unknown History methylcellulose (with sugar) oral 1 tbsp PO DAILY PRN Constipation 08/09/20 01/02/22 Unknown History powder (Citrucel (sucrose) oral powder) mometasone 50 mcg/actuation nasal 1 spray intranasal Q12H PRN 08/09/20 01/02/22 Unknown History spray Congestion multivitamin 1 tab PO DAILY 08/09/20 01/02/22 Unknown History oxybutynin chloride 10 mg 10 mg PO DAILY 08/09/20 01/02/22 Unknown History tablet,extended release 24 hr polyvinyl alcohol 1.4 % eye drops 2 drp ophthalmic (eye) QID PRN Dry 08/09/20 01/02/22 Unknown History (Artificial Tears (polyvinyl Eyes alcohol)) vitamin B complex 1 tab PO DAILY 08/09/20 01/02/22 Unknown History lisinopril 5 mg tablet 5 mg PO DAILY 09/05/20 01/02/22 Unknown History acetaminophen 325 mg capsule 325 mg PO BID PRN Pain 12/14/21 01/02/22 Unknown History (Tylenol) diazepam 5 mg tablet 5 mg PO BID 12/14/21 01/02/22 Unknown History doxycycline hyclate 50 mg tablet 50 mg PO DAILY 12/14/21 01/02/22 Unknown History naloxone 0.4 mg/mL injection 0.4 mg subcut Q2M PRN Opioid 12/14/21 01/02/22 Unknown History solution Reversal sennosides 8.6 mg tablet (Senna 8.6 mg PO DAILY 12/14/21 01/02/22 Unknown History Laxative) warfarin 2.5 mg tablet 2.5 mg PO DAILY 01/02/22 01/02/22 Unknown History Exam Airway Mallampati Class: II TM Dist: >3cm Neck ROM: Full Partial: Upper Loose/Missing/Broken Teeth: Yes (upper partial no teeth, lower very poor dentition only 5 lower teeth all in front and looking poor. patient denies any loose teeth) Heart: [id number] Lungs: cta b/l Assessment and Plan Assessment Anesthesia Assessment: Anesthesia Plan Discussed Final Anesthetic Review Family History of Problems with Anesthesia: No History of Problems with Anesthesia: No NPO: Yes ASA Class: III Final Preanesthetic Review: No Changes in Pt Med Stat, Meds/Allgs Chart Reviewed, Consent Obtained/Reviewed and Anes Risks/Benef Reviewed Patient Risk: Intermediate Procedure Risk: Intermediate Assessment/Block/Sedation in SS: Assess/Block/Sedation-SS Anesthetic Plan Anesthetic Plan: GA and Agree w/ Assess. and Plan Disposition: Standard PACU
[2022-01-08] VITALS (8 sets, daily range): BP systolic 144–164; BP diastolic 63–85; PULSE 64–81; RESP 16–18; TEMP 36.2–36.4; O2SAT 97–100
--- NOTE | ~2022-01-08 | MM_ITS ---
EXAMINATION: MM MAMMOGRAM GUIDED NEEDLE LOCALIZATION BREAST, RIGHT MM NEEDLE LOCALIZATION SPECIMEN FROM THE RIGHT BREAST CLINICAL INFORMATION: Outside mammography from [facility] suggest biopsy for calcifications lateral right breast. Outside facility suggests surgical excision due to patient physical circumstances. Attempt to arrange for stereotactic biopsy under conscious sedation at outside facilities unsuccessful. Prior history 2 benign right benign stereotactic biopsy procedures at [facility] (clip declined by patient at both procedures). Most recent stereotactic biopsy 02/18/2029 lateral right breast (benign breast tissue with fibrocystic changes, rare small microcalcifications, no atypia or carcinoma seen. COMPARISON: Outside images right breast diagnostic mammography 11/01/2021, 11/17/2021, 11/16/2020 ([facility]), right stereotactic biopsy 02/18/2019. TECHNIQUE NEEDLE LOC: Proper informed consent is obtained from the patient after discussion of the procedure, potential risks and complications, and alternatives including declining the procedure today. Patient was given an opportunity for questions. The patient appeared to understand. The patient consented to the procedure and signed the consent form. GUIDANCE: Digital mammography. APPROACH: Lateral Medial. TARGET: Area of concern noted on recent outside mammography from [facility], 2021. Fine calcifications in this area. Possible prior biopsy site changes. ANESTHESIA: Carbonated lidocaine 1%: 5 mL. LOCALIZATION MARKER: [place] [facility]. 7.5 cm length. Challenging procedure as anticipated given patient body habitus and physical limitations. 2 technologists used to help position patient. Patient positioning and exam tailored to patient capabilities. The skin is prepped and local anesthesia administered. The needle is positioned and position assessed with mammography. The wire is hooked into position. [place] needle protector placed. The patient tolerated the procedure well and had no immediate complication. Preliminary procedure findings called to medical radiation therapist (Savi) for Dr. Morris on 01/08/2022. TECHNIQUE SPECIMEN RADIOGRAPH: Imaging of the excised specimen is performed using digital mammography in 1 view. FINDINGS SPECIMEN RADIOGRAPH: The specimen shows the distal needle and distal hookwire are delivered intact. There are scattered punctate calcifications in the specimen adjacent to the localization needle and wire, at least 10 in number. Results were called to Dr. Brayan Morris in the operating room at the time of imaging. MM/MM needle loc RT IMPRESSION: 1. Status post right breast needle localization with wire hooked into position. 2. Post operative specimen radiograph obtained.
[2022-01-08] MEDS: Lactated Ringers 1,000 ML 50 ML IVCONT (07:52)
[2022-01-08 08:11] LABS: INTERNATIONAL NORM RATIO 1.3 (0.9-1.1); Prothrombin Time 14.5 SEC (10.0-13.1)
--- NOTE | 2022-01-08 08:13 | P.OP_ITS ---
Operative Note Operative Note Date of Service: 01/08/22 Narrative: Preoperative diagnosis: Abnormal mammogram right breast Postoperative diagnosis: same Procedure: right breast lumpectomy with needle localization Surgeon: Brayan Morris MD Radio Rigger: Akiko Skaggs PA-C Anesthesia: general LMA Indications for procedure: 66-year-old female patient with a previous history of right breast biopsy x2 with no marker placement now presenting with a new lesion with microcalcification in the right breast felt to be suspicious for malignancy. Patient was felt not to be a candidate for stereotactic biopsy therefore presents for needle localization and lumpectomy. Operative findings: Specimen x-ray confirms calcifications within the specimen. Specimen: Right breast lumpectomy Estimated blood loss: 5 mL Complications: none Procedure details: The patient was brought to the OR and placed in a supine position. The patient's right breast was prepped with ChloraPrep and draped in a sterile fashion after administering general anesthesia. A surgical time-out was called the consent confirmed. Patient received preoperative antibiotics and Venodyne boots were in place. Local anesthesia consisting 0.5% Sensorcaine was infiltrated around the localizing needle in the lower outer quadrant of the right breast. A curvilinear incision was then made below the nipple-areolar complex to include the needle tract carried out through subcutaneous tissue. Superior inferior skin flaps were then created with electrocautery. Using sharp dissection with Metzenbaum scissors a core of tissue surrounding the localizing needle was then sent to pathology for further examination. Specimen x-ray confirmed calcifications within the specimen. The specimen was marked with a long suture on the lateral margin, short suture on the superior margin and loop suture on the posterior margin. Hemostasis was assured using electrocautery. The wounds were irrigated with saline solution and suctioned dry. After confirmation of a proper specimen the deep breast tissue and superficial breast tissue reapproximated using interrupted 3-0 Polysorb sutures. Dermis was then reapproximated using interrupted 3-0 Polysorb sutures. Skin was closed using a running subcuticular 4-0 Polysorb suture. Steri-Strips, 2 x 2 gauze and Tegaderm were then applied. The patient tolerated the procedure well. Sponge, instrument, and needle counts reported as correct. Patient was transferred to PACU in stable condition.
--- NOTE | 2022-01-08 08:13 | MHC.SHP ---
Pre-Procedural Eval Section A Date of Service: 01/08/22 The patient is an INPATIENT: No Changes since office visit: Yes Patient answered all questions; No Cold of Flu in the past 2 weeks, No New Medical Problems and No Changes in Medication The History & Physical has been completed within 30 days and I have reviewed it.: Yes Section B Chief Complaint: ABNORMAL & INCONCLUSIVE FINDINGS OF RT BR Allergies: Allergies Allergy/AdvReac Type Severity Reaction Status Date / Time hydrocodone [Vicodin] Allergy Intermediate vomiting Verified 01/02/22 10:34 lactose [LACTOSE] Allergy Unknown UNKNOWN Verified 12/14/21 11:08 lamotrigine [From LAMICTAL] Allergy Unknown UNKNOWN Verified 12/14/21 11:08 NSAIDS (Non-Steroidal AdvReac Mild KIDNEY Verified 01/02/22 09:33 Anti-Inflamma DISEASE [NSAIDS (NON-STEROIDAL ANTI-INFLAMMA] dairy products Allergy Mild diarrhea Uncoded 01/02/22 09:33 Plan Diagnosis/Plan: Unchanged I have reviewed the history and physical and performed a pertinent physical examination on my patient. No changes have occurred unless specified.
[2022-01-08] MEDS: Lidocaine HCl 1 % 20 ML VIAL 5 ML SUBCUT (09:29)
[2022-01-08] MEDS: Sodium Bicarbonate 8.4% 50 MEQ/50 ML VIAL SUBCUT (09:30)
== END 2022-01-08 11:41 | disposition home or self-care (01) ==
PROVIDERS: Nurse Practitioner; Visit Provider Surgery
PROC: (CPT 19301; principal; 2022-01-08 09:00)
DX: R92.8 Other abnormal and inconclusive findings on diagnostic imaging of breast (principal); J96.90 Respiratory failure, unspecified, unspecified whether with hypoxia or hypercapnia; Z99.81 Dependence on supplemental oxygen; I10 Essential (primary) hypertension; I42.9 Cardiomyopathy, unspecified; D64.9 Anemia, unspecified; I69.854 Hemiplegia and hemiparesis following other cerebrovascular disease affecting left non-dominant side; D68.61 Antiphospholipid syndrome; Z79.01 Long term (current) use of anticoagulants; Z79.899 Other long term (current) drug therapy; Z88.8 Allergy status to other drugs, medicaments and biological substances; Z86.16 Personal history of COVID-19; I73.9 Peripheral vascular disease, unspecified
CPT/HCPCS: 19301; 19281; 36415; 85610; 88307; 88329; A4648; J0690; J1100; J2405; J2795; J3010

== ENCOUNTER 2022-01-13 05:06 | Emergency (ER) | payer MEDICAID, SELFPAY ==
[2022-01-13] VITALS (14 sets, daily range): BP systolic 126–166; BP diastolic 54–82; PULSE 63–105; RESP 16–22; TEMP 38–38.5; O2SAT 98–100; BMI 20.7
--- NOTE | ~2022-01-13 | CT_ITS ---
EXAMINATION: CT HEAD WITHOUT CONTRAST CLINICAL INFORMATION: Altered mental status. Lethargic. COMPARISON: 12/02/2020 TECHNIQUE: Contiguous axial imaging was performed from the skull base to vertex without intravenous contrast. This CT examination was performed using dose optimization techniques as appropriate, variously including the following: * Automated exposure control * Adjustment of mA and/or kV according to patient size (this includes techniques or standardized protocols for targeted exams where dose is matched to indication/reason for exam; i.e. extremities or head) Use of iterative reconstruction technique DLP: 670 mGy-cm. FINDINGS: There is a left cerebral convexity subdural hematoma measuring up to 1.4 cm in thickness. There is significant mass effect. There is rightward midline shift of 0.7 cm. Effacement of the left lateral ventricle. There is no parenchymal hemorrhage identified or territorial infarction. Contreras to white matter differentiation is preserved. No hydrocephalus. Proportional prominence of the ventricles and sulcal spaces is consistent with mild volume loss. Patchy periventricular and deep white matter hypoattenuation is consistent with mild small vessel ischemic changes. The osseous structures and soft tissues are normal. The mastoid air cells and visualized portions of the paranasal sinuses are well aerated. CT/CT head/brain wo con IMPRESSION: Left cerebral convexity subdural hematoma with associated mass effect and rightward midline shift. This critical result was discussed with Sheyla Wheeler MD by telephone at 01/13/2022 6:30 AM and it was ascertained that the content and urgency of the report was understood at the time of direct communication.
--- NOTE | ~2022-01-13 | XR_ITS ---
EXAMINATION: XR CHEST CLINICAL INFORMATION: Fever COMPARISON: 12/02/2020 TECHNIQUE: Frontal view of the chest was obtained. FINDINGS: Lung volumes are low. Airspace opacities at both lung bases, left greater than right. Possible small left effusion. No pneumothorax. The cardiomediastinal silhouette is unchanged. XR/XR chest 1V IMPRESSION: Bilateral airspace opacities concerning for pneumonia. Component of atelectasis likely present. Possible small left effusion.
--- NOTE | ~2022-01-13 | XR_ITS ---
EXAMINATION: XR CHEST CLINICAL INFORMATION: Endotracheal tube placement COMPARISON: Previous chest x-ray most recent from earlier the same day TECHNIQUE: Frontal view of the chest was obtained. FINDINGS: There is a new endotracheal tube with tip 4 cm above the balaji. There is a new nasogastric tube that projects over the stomach. The tip is not seen. The cardiac and mediastinal contours are normal. There is bilateral airspace disease probably representing pneumonia. There is no pleural effusion. There is no pneumothorax. There is old trauma to the left proximal humerus. XR/XR chest 1V IMPRESSION: Satisfactory position of endotracheal tube. Nasogastric tube projects over stomach, tip not seen. No change in bilateral airspace disease probably representing pneumonia.
--- NOTE | 2022-01-13 05:21 | ECG_ITS ---
Test Reason : SEPSIS Blood Pressure : / mmHG Vent. Rate : 089 BPM Atrial Rate : 089 BPM P-R Int : 238 ms QRS Dur : 146 ms QT Int : 388 ms P-R-T Axes : 094 -52 104 degrees QTc Int : 472 ms Sinus rhythm with 1st degree A-V block Left axis deviation Left bundle branch block Abnormal ECG When compared with ECG of 02-DEC-2020 11:56, NE interval has increased Vent. rate has increased BY 34 BPM T wave inversion no longer evident in Inferior leads T wave inversion more evident in Lateral leads Referred By: Sheyla Wheeler Electronically Signed By:DEMI DONALD
--- NOTE | 2022-01-13 05:23 | ED_ITS ---
HPI - General Adult General Chief complaint: General Medical Stated complaint: lethargic Time Seen by Provider: 01/13/22 05:08 Source: EMS Mode of arrival: EMS Limitations: altered mental status History of Present Illness HPI narrative: Patient comes to the emergency room from [facility]. The staff called EMS because the patient has been lethargic. The staff at [facility] was very unhelpful to EMS, they were not sure when the patient was last seen normal, they were not sure with the patient's baseline is. The it infrastructure architect at [facility] reports that they got sign-out from the 15:00 to 23:00 shift that the patient had been lethargic for a while . At 05:00 in the morning today, they decided to send the patient to the ED for further evaluation because she spiked a fever. According to the paperwork that was sent from [facility], the patient was noted to have left-sided facial droop, lethargy, and now is nonverbal when she is usually alert and is fully verbal at baseline. Once again, it is unclear when patient's symptoms started. The staff reported that any time between 15:00 and 23:00, the staff noticed that the patient was lethargic, unclear if they notice the mouth droop Related Data Home Medications Medication Instructions Recorded Confirmed aluminum-mag hydroxide-simethicone 15 ml PO Q6H PRN GI UPSET 08/09/20 01/02/22 200 mg-200 mg-20 mg/5 mL oral susp (Feli-Lanta) ammonium lactate 12 % topical cream 1 appl topical BID 08/09/20 01/02/22 betamethasone dipropionate 0.05 % 1 appl topical Q3D 08/09/20 01/02/22 topical cream bisacodyl 10 mg rectal suppository 10 mg IN DAILY PRN Constipation 08/09/20 01/02/22 cetirizine 10 mg tablet 10 mg PO DAILY 08/09/20 01/02/22 chlordiazepoxide HCl 5 mg capsule 5 mg PO BID 08/09/20 01/02/22 clobazam 10 mg tablet 5 mg PO DAILY 08/09/20 01/02/22 ferrous sulfate 325 mg (65 mg 325 mg PO BID 08/09/20 01/02/22 iron) tablet,delayed release gabapentin 100 mg capsule 200 mg PO BID 08/09/20 01/02/22 horse chestnut 300 mg capsule 300 mg PO DAILY 08/09/20 01/02/22 lactase 3,000 unit tablet (Lactaid) 3,000 unit PO QID PRN Lactose 08/09/20 01/02/22 Intolerance melatonin 5 mg tablet 5 mg PO BEDTIME PRN Insomnia 08/09/20 01/02/22 methylcellulose (with sugar) oral 1 tbsp PO DAILY PRN Constipation 08/09/20 01/02/22 powder (Citrucel (sucrose) oral powder) mometasone 50 mcg/actuation nasal 1 spray intranasal Q12H PRN 08/09/20 01/02/22 spray Congestion multivitamin 1 tab PO DAILY 08/09/20 01/02/22 oxybutynin chloride 10 mg 10 mg PO DAILY 08/09/20 01/02/22 tablet,extended release 24 hr polyvinyl alcohol 1.4 % eye drops 2 drp ophthalmic (eye) QID PRN Dry 08/09/20 01/02/22 (Artificial Tears (polyvinyl Eyes alcohol)) vitamin B complex 1 tab PO DAILY 08/09/20 01/02/22 lisinopril 5 mg tablet 5 mg PO DAILY 09/05/20 01/02/22 acetaminophen 325 mg capsule 325 mg PO BID PRN Pain 12/14/21 01/02/22 (Tylenol) diazepam 5 mg tablet 5 mg PO BID 12/14/21 01/02/22 doxycycline hyclate 50 mg tablet 50 mg PO DAILY 12/14/21 01/02/22 naloxone 0.4 mg/mL injection 0.4 mg subcut Q2M PRN Opioid 12/14/21 01/02/22 solution Reversal sennosides 8.6 mg tablet (Senna 8.6 mg PO DAILY 12/14/21 01/02/22 Laxative) warfarin 2.5 mg tablet 2.5 mg PO DAILY 01/02/22 01/02/22 Previous Rx's Medication Instructions Recorded metoprolol tartrate 25 mg tablet 50 mg PO BID 30 days #120 tabs 08/14/20 oxycodone 5 mg tablet 5 mg PO BID PRN pain #10 tabs 11/27/20 Allergies Allergy/AdvReac Type Severity Reaction Status Date / Time hydrocodone [Vicodin] Allergy Intermediate vomiting Verified 01/02/22 10:34 lactose [LACTOSE] Allergy Unknown UNKNOWN Verified 12/14/21 11:08 lamotrigine [From LAMICTAL] Allergy Unknown UNKNOWN Verified 12/14/21 11:08 NSAIDS (Non-Steroidal AdvReac Mild KIDNEY Verified 01/02/22 09:33 Anti-Inflamma DISEASE [NSAIDS (NON-STEROIDAL ANTI-INFLAMMA] dairy products Allergy Mild diarrhea Uncoded 01/02/22 09:33 Review of Systems Review of Systems: Yes Unobtainable due to mental condition [facility] Past Medical History Medical History Abnormal CT scan, chest Abnormal echocardiogram Acute respiratory failure with hypoxia Anticoagulated on Coumadin Antiphospholipid syndrome Cardiomyopathy Cerebrovascular accident (CVA) with left hemiparesis Chronic anemia COVID-19 vaccine series completed Dependence on continuous supplemental oxygen Depression DVT (deep venous thrombosis) Glaucoma History of COVID-19 Hypertension Obsessive compulsive disorder Peripheral vascular disease Resides in [facility] facility Respiratory failure Thrombocytopenia Surgical History (Updated 01/12/22 @ 12:34 by MAYANK Robison) History of lumpectomy of right breast (01/08/22) No pertinent past surgical history Family History Family History Father Colon cancer Mother Alzheimer's dementia Social History Social History Household Members: None Housing: Custodial Housing Other:: resides at [facility] Are you a primary resident care aide to a significant other at home: No Do you presently have visiting nurse or other home services: Yes ([facility] staff) Alcohol intake: never Patient Tobacco Use Status: Never used Tobacco Second Hand Smoke Exposure: No Advance Directives: Yes Advance Directives on File: Yes Advance Directives Date on File: 01/09/22 service: No Current occupational status: disabled Physical Exam ED Vital Signs: Vital Signs - 24 hr 01/13/22 05:15 01/13/22 06:48 01/13/22 07:21 Temperature 101.3 F H Pulse Rate 86 75 Respiratory Rate 22 H 16 Blood Pressure 147/82 H 158/60 H Pulse Oximetry 98 98 Oxygen Delivery Method Nasal Cannula Nasal Cannula Oxygen Flow Rate 1 Fraction of Inspired Oxygen 50 01/13/22 07:47 01/13/22 06:57 01/13/22 08:07 Temperature Pulse Rate 72 105 H 70 Respiratory Rate 22 H 18 Blood Pressure 164/68 H 164/70 H 166/64 H Pulse Oximetry 100 100 100 Oxygen Delivery Method Mechanical Ventilation Ambu-Bag Mechanical Ventilation Oxygen Flow Rate 50 50 Fraction of Inspired Oxygen 01/13/22 07:05 01/13/22 08:17 Temperature Pulse Rate 79 70 Respiratory Rate 18 Blood Pressure 157/76 H 147/80 H Pulse Oximetry 100 100 Oxygen Delivery Method Mechanical Ventilation Mechanical Ventilation Oxygen Flow Rate 50 50 Fraction of Inspired Oxygen BMI result Body Mass Index 20.7 Const Other: Appearance: Somnolent, opens her eyes to command. Eyes: Pupils equal, round and reactive to light. ENT: Pharynx normal. Very dry oral mucosa Neck: Normal inspection. Neck supple. No lymph nodes noted. No crepitus CVS: Normal heart rate and rhythm. Pulses normal. Normal S1 and S2 Respiratory: No respiratory distress. Breath sounds normal. No Wheezing. No rales Abdomen: Soft and nontender. No rigidity. No distention. Skin: Skin warm and dry. Normal skin color. Normal skin turgor. Extremities: No lower extremity edema. Patient has chronic venous stasis bilaterally Neuro: Unable to participating cranial nerve assessment. Patient has a left- sided mouth droop, difficult to assess in patient has no teeth Psych: Very somnolent, barely responsive Course Course Course Narrative: Patient's labs and imaging pending On arrival, patient's GCS is 9. Patient has a rectal temperature of 101.3 degrees. Unclear source of infection. CT scan shows a left cerebral convexity subdural hematoma measuring 1.4 cm in thickness with significant mass effect. Rightward midline shift of 0.7 cm. -patient received Kcentra, 10 mg of IV vitamin K, 1000 mg of Keppra -I discussed the patient with Neurosurgery at [facility], they will review the images. -patient's GCS is now 7. Patient had to be intubated. 20 mg of etomidate and 50 mg of rocuronium were used. Patient on a propofol drip -chest x-ray shows bilateral pneumonia. Patient was given Zosyn -COVID negative I was able to speak to the patient's daughter Sofía Harris [phone], who is listed as the patient's primary contact. Gives permission for neurosurgery n laurie. I spoke with MAKEDA from Neurosurgery at [facility], recommends medical ICU admission. Dr. Kingsley from ICU accepted the pt Medical Decision Making Lab Data Result diagrams: 01/13/22 05:42 01/13/22 05:42 Labs: Lab Results 01/13/22 01/13/22 01/13/22 Range/Units 05:41 05:42 05:42 WBC 7.0 (4.8-10.8) X10*3/uL RBC 3.31 L (4.20-5.50) X10*6/uL Hgb 10.4 L (12.0-16.0) g/dl Hct 30.7 L (37.0-47.0) % MCV 92.7 (80.0-98.0) fL MCH 31.4 (27.0-33.0) pg MCHC 33.9 (31.0-35.0) g/dl RDW 12.7 (11.0-16.0) % Plt Count 67 L (160-400) X10*3/uL MPV 10.7 (9.4-12.3) fL Immature Gran % (Auto) 0.6 H (0.0-0.4) % Neut % (Auto) 79.2 H (45-73) % Lymph % (Auto) 14.8 L (20-40) % [place] % (Auto) 5.3 (2-11) % Eos % (Auto) 0.0 (0-4) % Baso % (Auto) 0.1 (0-2) % Lymph # (Auto) 1.0 L (1.2-4.9) X10*3/uL [place] # (Auto) 0.4 (0.1-1.2) X10*3/uL Eos # (Auto) 0.0 (0.0-0.4) X10*3/uL Baso # (Auto) 0.0 (0.0-0.2) X10*3/uL Abs Immat Gran (auto) 0.04 H (0.00-0.03) X10*3/uL Absolute Neuts (auto) 5.5 (2.0-8.3) x10*3/uL Absolute Nucleated RBC 0.000 (0.0-0.012) X10*3/uL Nucleated RBC % (auto) 0.0 (0.0-0.2) /100WBC Smear Tech's Comments VERIFIED PT (10.0-13.1) SEC INR (0.9-1.1) Sodium 136 (135-145) mmol/L Potassium 4.3 (3.3-5.1) mmol/L Chloride 100 (96-108) mmol/L Carbon Dioxide 24 (22-29) mmol/L Anion Gap 16 (12-20) BUN 27 H (9-16) mg/dL Creatinine 1.07 (0.5-1.4) mg/dL Estim Creat Clear Calc 38.1 Estimated GFR 52 Random Glucose 121 H (60-115) mg/dL Lactic Acid (0.5-2.0) mmol/L Calcium 8.5 D (8.4-10.2) mg/dL Magnesium 1.9 (1.6-2.6) mg/dL Total Bilirubin 0.6 (0.0-1.0) mg/dL Direct Bilirubin 0.2 (0.0-0.5) mg/dL AST 39 H D (5-31) U/L ALT 25 (0-31) U/L Alkaline Phosphatase 112 (39-117) U/L Ammonia (13-55) umol/L Troponin I High Sens (<3.5-17.0) ng/L Total Protein 7.0 (6.5-8.0) g/dL Albumin 3.5 (3.5-5.0) g/dL TSH Cancelled 0.23 L Free T4 1.32 (0.71-1.85) ng/dL Urine Color Urine Appearance Urine pH (5.0-8.0) Ur Specific [place] (1.005-1.025) Urine Protein (NEG-TRACE) MG/DL Urine Glucose (UA) (NEG) MG/DL Urine Ketones (NEG) MG/DL Urine Blood (NEG) Urine Nitrite (NEG) Ur Leukocyte Esterase (NEG) Urine RBC (0) /HPF Urine WBC (0-4) /HPF Ur Squamous Epith Cells /LPF Urine Bacteria /LPF Urine Opiates Screen (Not Detect) Urine Fentanyl Screen (Not Detect) Ur Barbiturates Screen (Not Detect) Ur Phencyclidine Scrn (Not Detect) Ur Amphetamines Screen (Not Detect) U Benzodiazepines Scrn (Not Detect) Urine Cocaine Screen (Not Detect) U Marijuana (THC) Screen (Not Detect) COVID-19 (FREDDY) (Negative) COVID-19 Clin Com 01/13/22 01/13/22 01/13/22 Range/Units 05:42 05:42 05:42 WBC (4.8-10.8) X10*3/uL RBC (4.20-5.50) X10*6/uL Hgb (12.0-16.0) g/dl Hct (37.0-47.0) % MCV (80.0-98.0) fL MCH (27.0-33.0) pg MCHC (31.0-35.0) g/dl RDW (11.0-16.0) % Plt Count (160-400) X10*3/uL MPV (9.4-12.3) fL Immature Gran % (Auto) (0.0-0.4) % Neut % (Auto) (45-73) % Lymph % (Auto) (20-40) % [place] % (Auto) (2-11) % Eos % (Auto) (0-4) % Baso % (Auto) (0-2) % Lymph # (Auto) (1.2-4.9) X10*3/uL [place] # (Auto) (0.1-1.2) X10*3/uL Eos # (Auto) (0.0-0.4) X10*3/uL Baso # (Auto) (0.0-0.2) X10*3/uL Abs Immat Gran (auto) (0.00-0.03) X10*3/uL Absolute Neuts (auto) (2.0-8.3) x10*3/uL Absolute Nucleated RBC (0.0-0.012) X10*3/uL Nucleated RBC % (auto) (0.0-0.2) /100WBC Smear Tech's Comments PT 40.7 H (10.0-13.1) SEC INR 3.4 H D (0.9-1.1) Sodium (135-145) mmol/L Potassium (3.3-5.1) mmol/L Chloride (96-108) mmol/L Carbon Dioxide (22-29) mmol/L Anion Gap (12-20) BUN (9-16) mg/dL Creatinine (0.5-1.4) mg/dL Estim Creat Clear Calc Estimated GFR Random Glucose (60-115) mg/dL Lactic Acid 0.5 (0.5-2.0) mmol/L Calcium (8.4-10.2) mg/dL Magnesium (1.6-2.6) mg/dL Total Bilirubin (0.0-1.0) mg/dL Direct Bilirubin (0.0-0.5) mg/dL AST (5-31) U/L ALT (0-31) U/L Alkaline Phosphatase (39-117) U/L Ammonia (13-55) umol/L Troponin I High Sens 48.1 H (<3.5-17.0) ng/L Total Protein (6.5-8.0) g/dL Albumin (3.5-5.0) g/dL TSH Free T4 (0.71-1.85) ng/dL Urine Color Urine Appearance Urine pH (5.0-8.0) Ur Specific [place] (1.005-1.025) Urine Protein (NEG-TRACE) MG/DL Urine Glucose (UA) (NEG) MG/DL Urine Ketones (NEG) MG/DL Urine Blood (NEG) Urine Nitrite (NEG) Ur Leukocyte Esterase (NEG) Urine RBC (0) /HPF Urine WBC (0-4) /HPF Ur Squamous Epith Cells /LPF Urine Bacteria /LPF Urine Opiates Screen (Not Detect) Urine Fentanyl Screen (Not Detect) Ur Barbiturates Screen (Not Detect) Ur Phencyclidine Scrn (Not Detect) Ur Amphetamines Screen (Not Detect) U Benzodiazepines Scrn (Not Detect) Urine Cocaine Screen (Not Detect) U Marijuana (THC) Screen (Not Detect) COVID-19 (FREDDY) (Negative) COVID-19 Clin Com 01/13/22 01/13/22 01/13/22 Range/Units 05:42 05:42 06:50 WBC (4.8-10.8) X10*3/uL RBC (4.20-5.50) X10*6/uL Hgb (12.0-16.0) g/dl Hct (37.0-47.0) % MCV (80.0-98.0) fL MCH (27.0-33.0) pg MCHC (31.0-35.0) g/dl RDW (11.0-16.0) % Plt Count (160-400) X10*3/uL MPV (9.4-12.3) fL Immature Gran % (Auto) (0.0-0.4) % Neut % (Auto) (45-73) % Lymph % (Auto) (20-40) % [place] % (Auto) (2-11) % Eos % (Auto) (0-4) % Baso % (Auto) (0-2) % Lymph # (Auto) (1.2-4.9) X10*3/uL [place] # (Auto) (0.1-1.2) X10*3/uL Eos # (Auto) (0.0-0.4) X10*3/uL Baso # (Auto) (0.0-0.2) X10*3/uL Abs Immat Gran (auto) (0.00-0.03) X10*3/uL Absolute Neuts (auto) (2.0-8.3) x10*3/uL Absolute Nucleated RBC (0.0-0.012) X10*3/uL Nucleated RBC % (auto) (0.0-0.2) /100WBC Smear Tech's Comments PT (10.0-13.1) SEC INR (0.9-1.1) Sodium (135-145) mmol/L Potassium (3.3-5.1) mmol/L Chloride (96-108) mmol/L Carbon Dioxide (22-29) mmol/L Anion Gap (12-20) BUN (9-16) mg/dL Creatinine (0.5-1.4) mg/dL Estim Creat Clear Calc Estimated GFR Random Glucose (60-115) mg/dL Lactic Acid (0.5-2.0) mmol/L Calcium (8.4-10.2) mg/dL Magnesium (1.6-2.6) mg/dL Total Bilirubin (0.0-1.0) mg/dL Direct Bilirubin (0.0-0.5) mg/dL AST (5-31) U/L ALT (0-31) U/L Alkaline Phosphatase (39-117) U/L Ammonia 25 (13-55) umol/L Troponin I High Sens (<3.5-17.0) ng/L Total Protein (6.5-8.0) g/dL Albumin (3.5-5.0) g/dL TSH Free T4 (0.71-1.85) ng/dL Urine Color DK YELLOW Urine Appearance CLEAR Urine pH 6.5 (5.0-8.0) Ur Specific [place] 1.015 (1.005-1.025) Urine Protein 2+ H (NEG-TRACE) MG/DL Urine Glucose (UA) NEG (NEG) MG/DL Urine Ketones NEG (NEG) MG/DL Urine Blood 1+ H (NEG) Urine Nitrite NEG (NEG) Ur Leukocyte Esterase NEG (NEG) Urine RBC 10-14 H (0) /HPF Urine WBC 0 (0-4) /HPF Ur Squamous Epith Cells NONE /LPF Urine Bacteria NONE /LPF Urine Opiates Screen (Not Detect) Urine Fentanyl Screen (Not Detect) Ur Barbiturates Screen (Not Detect) Ur Phencyclidine Scrn (Not Detect) Ur Amphetamines Screen (Not Detect) U Benzodiazepines Scrn (Not Detect) Urine Cocaine Screen (Not Detect) U Marijuana (THC) Screen (Not Detect) COVID-19 (FREDDY) Negative (Negative) COVID-19 Clin Com See Note 01/13/22 Range/Units 06:50 WBC (4.8-10.8) X10*3/uL RBC (4.20-5.50) X10*6/uL Hgb (12.0-16.0) g/dl Hct (37.0-47.0) % MCV (80.0-98.0) fL MCH (27.0-33.0) pg MCHC (31.0-35.0) g/dl RDW (11.0-16.0) % Plt Count (160-400) X10*3/uL MPV (9.4-12.3) fL Immature Gran % (Auto) (0.0-0.4) % Neut % (Auto) (45-73) % Lymph % (Auto) (20-40) % [place] % (Auto) (2-11) % Eos % (Auto) (0-4) % Baso % (Auto) (0-2) % Lymph # (Auto) (1.2-4.9) X10*3/uL [place] # (Auto) (0.1-1.2) X10*3/uL Eos # (Auto) (0.0-0.4) X10*3/uL Baso # (Auto) (0.0-0.2) X10*3/uL Abs Immat Gran (auto) (0.00-0.03) X10*3/uL Absolute Neuts (auto) (2.0-8.3) x10*3/uL Absolute Nucleated RBC (0.0-0.012) X10*3/uL Nucleated RBC % (auto) (0.0-0.2) /100WBC Smear Tech's Comments PT (10.0-13.1) SEC INR (0.9-1.1) Sodium (135-145) mmol/L Potassium (3.3-5.1) mmol/L Chloride (96-108) mmol/L Carbon Dioxide (22-29) mmol/L Anion Gap (12-20) BUN (9-16) mg/dL Creatinine (0.5-1.4) mg/dL Estim Creat Clear Calc Estimated GFR Random Glucose (60-115) mg/dL Lactic Acid (0.5-2.0) mmol/L Calcium (8.4-10.2) mg/dL Magnesium (1.6-2.6) mg/dL Total Bilirubin (0.0-1.0) mg/dL Direct Bilirubin (0.0-0.5) mg/dL AST (5-31) U/L ALT (0-31) U/L Alkaline Phosphatase (39-117) U/L Ammonia (13-55) umol/L Troponin I High Sens (<3.5-17.0) ng/L Total Protein (6.5-8.0) g/dL Albumin (3.5-5.0) g/dL TSH Free T4 (0.71-1.85) ng/dL Urine Color Urine Appearance Urine pH (5.0-8.0) Ur Specific [place] (1.005-1.025) Urine Protein (NEG-TRACE) MG/DL Urine Glucose (UA) (NEG) MG/DL Urine Ketones (NEG) MG/DL Urine Blood (NEG) Urine Nitrite (NEG) Ur Leukocyte Esterase (NEG) Urine RBC (0) /HPF Urine WBC (0-4) /HPF Ur Squamous Epith Cells /LPF Urine Bacteria /LPF Urine Opiates Screen Not Detected (Not Detect) Urine Fentanyl Screen Not Detected (Not Detect) Ur Barbiturates Screen Not Detected (Not Detect) Ur Phencyclidine Scrn Not Detected (Not Detect) Ur Amphetamines Screen Not Detected (Not Detect) U Benzodiazepines Scrn POSITIVE H (Not Detect) Urine Cocaine Screen Not Detected (Not Detect) U Marijuana (THC) Screen Not Detected (Not Detect) COVID-19 (FREDDY) (Negative) COVID-19 Clin Com Imaging Data CT scan - head: Radiologist's impression: FINDINGS: There is a left cerebral convexity subdural hematoma measuring up to 1.4 cm in thickness. There is significant mass effect. There is rightward midline shift of 0.7 cm. Effacement of the left lateral ventricle. There is no parenchymal hemorrhage identified or territorial infarction. Contreras to white matter differentiation is preserved. No hydrocephalus. Proportional prominence of the ventricles and sulcal spaces is consistent with mild volume loss. Patchy periventricular and deep white matter hypoattenuation is consistent with mild small vessel ischemic changes. The osseous structures and soft tissues are normal. The mastoid air cells and visualized portions of the paranasal sinuses are well aerated. ? CT/CT head/brain wo con IMPRESSION: Left cerebral convexity subdural hematoma with associated mass effect and rightward midline shift. Chest x-ray: Radiologist's impression: FINDINGS: There is a new endotracheal tube with tip 4 cm above the balaji. There is a new nasogastric tube that projects over the stomach. The tip is not seen. The cardiac and mediastinal contours are normal. There is bilateral airspace disease probably representing pneumonia. There is no pleural effusion. There is no pneumothorax. There is old trauma to the left proximal humerus. XR/XR chest 1V IMPRESSION: Satisfactory position of endotracheal tube. Nasogastric tube projects over stomach, tip not seen. No change in bilateral airspace disease probably representing pneumonia. ? Critical Care Time Critical Care Time Critical Care Time: Yes Total Critical Care Time: 60 Attestation: I have personally provided critical care time. Time includes review of lab data, radiology results, discussion with consultants, and monitoring for potential decompensation. Intervention performed as documented. Discharge Plan Discharge Clinical Impression: Subdural hematoma, Bilateral pneumonia [facility]: [facility] ICU Prescriptions: No Action multivitamin Tablet 1 tab PO DAILY cetirizine 10 mg Tablet 10 mg PO DAILY oxybutynin chloride 10 mg Tablet Extended Release 24hr 10 mg PO DAILY polyvinyl alcohol [Artificial Tears (polyvin alc)] 1.4 % Drops 2 drp OPHTHALMIC (EYE) QID PRN (Reason: Dry Eyes) chlordiazepoxide HCl 5 mg Capsule 5 mg PO BID bisacodyl 10 mg Suppository 10 mg IN DAILY PRN (Reason: Constipation) lactase [Lactaid] 3,000 unit Tablet 3,000 unit PO QID PRN (Reason: Lactose Intolerance) betamethasone dipropionate 0.05 % Cream 1 appl TOPICAL Q3D mometasone 50 mcg/actuation Geraldine,Non-Aerosol 1 spray INTRANASAL Q12H PRN (Reason: Congestion) vitamin B complex Tablet 1 tab PO DAILY ammonium lactate 12 % Cream 1 appl TOPICAL BID Rx Instructions: APPLY TO LOWER LEGS gabapentin 100 mg Capsule 200 mg PO BID alum-mag hydroxide-simeth [Feli-Lanta] 200-200-20 mg/5 mL Suspension 15 ml PO Q6H PRN (Reason: GI UPSET) ferrous sulfate 325 mg (65 mg iron) Tablet,Delayed Release (Dr/Ec) 325 mg PO BID horse chestnut 300 mg Capsule 300 mg PO DAILY Citrucel (sucrose) Powder 1 tbsp PO DAILY PRN (Reason: Constipation) melatonin 5 mg Tablet 5 mg PO BEDTIME PRN (Reason: Insomnia) clobazam 10 mg Tablet 5 mg PO DAILY metoprolol tartrate 25 mg Tablet 50 mg PO BID 30 Days Qty: 120 0RF Protocol: Hold for SBP/HR < HOLD for SBP < : 90 HOLD for HR < : 60 oxycodone 5 mg tablet 5 mg PO BID PRN (Reason: pain) Qty: 10 0RF warfarin 2.5 mg Tablet 2.5 mg PO DAILY lisinopril 5 mg tablet 5 mg PO DAILY diazepam 5 mg tablet 5 mg PO BID doxycycline hyclate 50 mg tablet 50 mg PO DAILY sennosides [Senna Laxative] 8.6 mg tablet 8.6 mg PO DAILY naloxone 0.4 mg/mL solution 0.4 mg subcut Q2M PRN (Reason: Opioid Reversal) Rx Instructions: NTExceed 10 mg total dose/episode acetaminophen [Tylenol] 325 mg capsule 325 mg PO BID PRN (Reason: Pain)
[2022-01-13] MEDS: 0.9 % Sodium Chloride 1,000 ML 999 ML IVCONT ×2 (05:47→07:40)
[2022-01-13 05:58] LABS: Ammonia 25 umol/L (13-55)
[2022-01-13 06:01] LABS: Lactic Acid 0.5 mmol/L (0.5-2.0)
[2022-01-13 06:02] LABS: Basophils Percent Auto 0.1 % (0-2); Hematocrit 30.7 % (37.0-47.0); Hemoglobin 10.4 g/dl (12.0-16.0); INTERNATIONAL NORM RATIO 3.4 (0.9-1.1); Imm Gran Abs Auto 0.04 X10*3/uL (0.00-0.03); Imm Gran Pct Auto 0.6 % (0.0-0.4); Lymphocytes Percent Auto 14.8 % (20-40); MANUAL DIFF FLAG SCAN; Mean Corpuscular HGB Conc 33.9 g/dl (31.0-35.0); Mean Corpuscular Hemoglobin 31.4 pg (27.0-33.0); Mean Corpuscular Volume 92.7 fL (80.0-98.0); Mean Platelet Volume 10.7 fL (9.4-12.3); Monocytes Absolute Auto 0.4 X10*3/uL (0.1-1.2); Monocytes Percent Auto 5.3 % (2-11); Neutrophils Absolute Auto 5.5 x10*3/uL (2.0-8.3); Neutrophils Percent Auto 79.2 % (45-73); Prothrombin Time 40.7 SEC (10.0-13.1); Red Blood Count 3.31 X10*6/uL (4.20-5.50); Red Cell Distribution Width 12.7 % (11.0-16.0); SCAN SMEAR FLAG 1
[2022-01-13 06:03] LABS: Platelet Count 67 X10*3/uL (160-400)
[2022-01-13 06:09] LABS: COVID-19 Test Negative (Negative)
[2022-01-13 06:11] LABS: Troponin-I High Sensitivity 48.1 ng/L (<3.5-17.0)
[2022-01-13 06:30] LABS: SLIDE REVIEW VERIFIED
[2022-01-13 06:35] LABS: Alanine Aminotransferase 25 U/L (0-31); Albumin Level 3.5 g/dL (3.5-5.0); Alkaline Phosphatase 112 U/L (39-117); Anion Gap 16 (12-20); Aspartate Amino Transferase 39 U/L (5-31); Bilirubin Direct 0.2 mg/dL (0.0-0.5); Bilirubin Total 0.6 mg/dL (0.0-1.0); Blood Urea Nitrogen 27 mg/dL (9-16); Calcium 8.5 mg/dL (8.4-10.2); Carbon Dioxide 24 mmol/L (22-29); Chloride 100 mmol/L (96-108); Creatinine Clr Calc Pharmacy 38.1; Estimated Glomerular Filt Rate 52; Glucose Random 121 mg/dL (60-115); Magnesium 1.9 mg/dL (1.6-2.6); Potassium 4.3 mmol/L (3.3-5.1); Sodium 136 mmol/L (135-145)
--- NOTE | 2022-01-13 06:36 | PC.NURSE ---
CALL OUT TO [facility] TRANSFER LINE @[id number] REGARDING TRANSFER OF PATIENT
[2022-01-13 06:52] LABS: TSH reflex Free T4 0.23 uIU/mL (0.32-4.0)
--- NOTE | 2022-01-13 06:54 | PC.NURSE ---
This RN contacting [facility] regarding confirmation of code status. Per [facility], pt noted to be a full code. MD Wheeler aware.
--- NOTE | 2022-01-13 06:55 | PC.NURSE ---
taking report from bella estrada getting ready to intubate the pt
[2022-01-13 06:56] LABS: Appearance Urine CLEAR; Color Urine DK YELLOW; Glucose Urine UA NEG (NEG); Leukocyte Esterase Urine NEG (NEG); Nitrite Urine NEG (NEG); PH 6.5 (5.0-8.0); Specific Gravity - Urine 1.015 (1.005-1.025); UACC Culture Trigger NO; Urine Blood 1+ (NEG); Urine Ketones NEG (NEG); Urine Protein 2+ MG/DL (NEG-TRACE)
[2022-01-13] MEDS: Etomidate 20 MG/10 ML VIAL IVPUSH (06:57)
--- NOTE | 2022-01-13 06:57 | PC.NURSE ---
pt getting 20 mg of etomidate folowed by 50mg of rocuronium by holding at 164/70 105 and sating at 100% normal sinus on the monior 7.5 tube and 23@ lip co2 33 settings for portable vent 18/400/50% and 5Peep
[2022-01-13] MEDS: Rocuronium Bromide 50 MG/5 ML VIAL IVPUSH (06:58)
--- NOTE | 2022-01-13 07:05 | PC.NURSE ---
og tube in place and positive auscultations
--- NOTE | 2022-01-13 07:15 | PC.NURSE ---
dr metz at bedside attempting a central line on the right cordite but unsuccess, dr metz did get a iv on the right neck area instead, pt is a difficulty stick
[2022-01-13 07:16] LABS: Amphetamine Screen Urine Not Detected (Not Detect); Barbiturates, Urine Not Detected (Not Detect); Benzodiazepines Screen Urine POSITIVE (Not Detect); Cannabinoid Screen Urine Not Detected (Not Detect); Cocaine Screen Urine Not Detected (Not Detect); Fentanyl, urine Not Detected (Not Detect); Opiate Screen Urine Not Detected (Not Detect); Phencyclidine Screen Urine Not Detected (Not Detect)
[2022-01-13] MEDS: Phytonadione (Vit K1) 10 MG in 0.9 % Sodium Chloride 50 ML 51 MG IV (07:25)
[2022-01-13 07:31] LABS: WBC Urine 0 /HPF (0-4)
[2022-01-13 07:39] LABS: Free T4 (Free Thyroxine) 1.32 ng/dL (0.71-1.85)
[2022-01-13] MEDS: levETIRAcetam in NaCl (iso-os) 1,000 MG/100 ML PIGGYBACK 400 MG IV (07:39)
[2022-01-13] MEDS: Piperacillin Sodium/Tazobactam 3.375 GM in 0.9 % Sodium Chloride 50 ML IV (07:59)
--- NOTE | 2022-01-13 08:16 | PC.NURSE ---
Addendum entered by Anna Vasquez 01/13/22 08:18: esposito in place by previous nurse, draining yellow urine about 225ml at this time Original Note: pt is currently not running on any sedative, no moving or bucking the vent, vs stable and holding
--- NOTE | 2022-01-13 08:48 | PC.NURSE ---
calling [facility] for report but unfortunately no answer
[2022-01-13] MEDS: propofoL 1,000 MG/100 ML VIAL 8.68 MG IVCONT (08:57)
--- NOTE | 2022-01-13 08:59 | PC.NURSE ---
pt starting to move slightly, propofal started at 30mcg/kg/min
--- NOTE | 2022-01-13 09:36 | PC.NURSE ---
third attempt to call [facility] but still no answer
--- NOTE | 2022-01-13 10:13 | PC.NURSE ---
report given to tevin estrada from [facility] transport team
[2022-01-13] MEDS: Acetaminophen Supp 650 MG SUPP.RECT PR (10:28)
--- NOTE | 2022-01-13 10:33 | PC.NURSE ---
pt appears to be pestering at this time, vs stable
--- NOTE | 2022-01-13 11:14 | PC.NURSE ---
fourth attempt at giving report to [facility] still no answer
== END 2022-01-13 11:48 | disposition short-term general hospital (02) ==
PROVIDERS: Emergency Provider Emergency Medicine
DX: I62.00 Nontraumatic subdural hemorrhage, unspecified (principal); I69.354 Hemiplegia and hemiparesis following cerebral infarction affecting left non-dominant side; R29.810 Facial weakness; J18.9 Pneumonia, unspecified organism; R50.9 Fever, unspecified; Z20.822 Contact with and (suspected) exposure to COVID-19; I10 Essential (primary) hypertension; I73.9 Peripheral vascular disease, unspecified; Z86.718 Personal history of other venous thrombosis and embolism; Z79.01 Long term (current) use of anticoagulants; Z99.81 Dependence on supplemental oxygen; Z79.899 Other long term (current) drug therapy
CPT/HCPCS: 31500; 36415; 70450; 71045; 80048; 80076; 80307; 81001; 82140; 83605; 83735; 84439; 84443; 84484; 85025; 85610; 87040; 87635; 93005; 94002; 96361; 96365; 96367; 96375; 99285; J1953; J2543; J3430; J7168